=== PATIENT | female | born 1955 | race Caucasian/White ===

== ENCOUNTER 2021-02-17 05:42 | Emergency (ER) | payer OTHER, MEDICARE ==
[~2021-02-17] VITALS: Ht 165.1 cm; Wt 63.5 kg
[2021-02-17] MEDS ORDERED: ACETAMINOPHEN 500 MG TABLET PO ONE (06:00)
[2021-02-17 07:24] LABS: APPEARANCE,URINE Clear (CLEAR); BILIRUBIN,URINE Negative (NEGATIVE); COLOR,URINE Yellow (YELLOW); GLUCOSE, URINE (UA) Negative (NEGATIVE); KETONES,URINE Negative (NEGATIVE); LEUKOCYTE ESTERASE ,URINE Negative (NEGATIVE); NITRATE,URINE Negative (NEGATIVE); OCCULT BLOOD,URINE Negative (NEGATIVE); PROTEIN,URINE Negative (NEGATIVE)
[2021-02-17 08:43] VITALS: BP 151/62
[2021-02-17] MEDS ORDERED: PRED50TA2 PO (10:11)
[2021-02-17] MEDS ORDERED: IBUP-14 PO (10:11)
[2021-02-17] MEDS ORDERED: CYCL10TA7 PO (10:11)
[2021-02-17] MEDS ORDERED: DEXAMETHASONE SOD PHOSPHATE 10MG/ML 1ML VIAL ONE (10:29)
[2021-02-17] MEDS ORDERED: DEXAMETHASONE SOD PHOSPHATE 4 MG/ML 1ML VIAL IM SCH (12:00)
== END 2021-02-17 11:29 | disposition home or self-care (01) ==
LOC: EDH 05:42
DX: M47.816 Spondylosis without myelopathy or radiculopathy, lumbar region (principal); M48.061 Spinal stenosis, lumbar region without neurogenic claudication; Z79.899 Other long term (current) drug therapy
CPT/HCPCS: 72131; 81003; 96372; 99284; J1100

== ENCOUNTER 2021-11-21 18:36 | Inpatient (IN) | payer OTHER, MEDICARE ==
[~2021-11-21] VITALS: Ht 165.1 cm; Wt 63.8 kg
[~2021-11-21 18:36] MED LIST: CYCL-309 PO; IBUP-14 PO; PRED50TA2 PO
[2021-11-21 18:57] LABS: BASOPHILS % (AUTO) 0.2 % (0.0-5.0); LYMPHOCYTES % (AUTO) 12.2 % (21.0-51.0); MEAN CORPUSCULAR HEMOGLOBIN 24.3 pg (27.0-33.0); MEAN CORPUSCULAR HGB CONC 31.5 g/dL (32.0-36.0); MEAN CORPUSCULAR VOLUME 76.9 fL (79-99); MONOCYTES % (AUTO) 9.4 % (3.0-13.0); NEUTROPHILS % (AUTO) 77.9 % (40.0-77.0); PLATELET COUNT (AUTO) 339 K/uL (130-400); RED BLOOD CELL COUNT(AUTO) 5.07 MIL/uL (4.00-5.50); RED CELL DISTRIBUTION WIDTH 19.6 % (11.0-15.5); WHITE BLOOD COUNT (AUTO) 11.1 K/uL (4.8-10.8)
[2021-11-21] MEDS ORDERED: ACETAMINOPHEN 500 MG TABLET PO ONE (19:00)
[2021-11-21] MEDS ORDERED: IPRATROPIUM/ALBUTEROL SULFATE 3 ML SOLUTION IH ONE (19:00)
[2021-11-21] MEDS ORDERED: 0.9%NACL 1000ML 1,000 ML IV SCH (19:00)
[2021-11-21] MEDS ORDERED: IBUPROFEN 800 MG TAB PO ONE (19:00)
[2021-11-21] MEDS ORDERED: CEFTRIAXONE 1G VIAL IVP ONE (19:30)
[2021-11-21] MEDS ORDERED: GUAIFENESIN-CODEINE 5 ML SYRUP PO ONE (19:30)
[2021-11-21] MEDS ORDERED: AZITHROMYCIN 250 MG TABLET PO ONE (19:30)
[2021-11-21] MEDS ORDERED: SOLU-MEDROL 125MG VIAL IVP ONE ×2 (19:30→21:30)
[2021-11-21 19:42] LABS: CREATININE 0.6 mg/dL (0.5-1.5); POTASSIUM 3.6 mmol/L (3.5-5.1)
[2021-11-21 19:50] LABS: ALBUMIN 3.3 g/dL (3.5-5.0); CRP QUANTITATIVE 57.1 mg/L (0.00-9.0); TOTAL PROTEIN, SERUM 7.4 g/dL (6.0-8.3)
[2021-11-21 20:03] LABS: APPEARANCE,URINE SL CLOUDY (CLEAR); BILIRUBIN,URINE NEGATIVE (NEGATIVE); COLOR,URINE YELLOW (YELLOW); GLUCOSE, URINE (UA) NEGATIVE (NEGATIVE); KETONES,URINE 15 mg/dL (NEGATIVE); LEUKOCYTE ESTERASE ,URINE TRACE (NEGATIVE); NITRATE,URINE NEGATIVE (NEGATIVE); OCCULT BLOOD,URINE NEGATIVE (NEGATIVE); PH,URINE 7.5 (5.0-8.0); PROTEIN,URINE TRACE mg/dL (NEGATIVE)
[2021-11-21 20:09] LABS: BACTERIA,URINE Few /HPF (None Seen); MUCUS,URINE Few LPF (None Seen); SQUAMOUS EPITHELIAL CELL,UR Many /HPF (0-2)
[2021-11-21 20:11] LABS: AMPHET/METH SCREEN,URINE NEGATIVE (NEGATIVE); BARBITURATE SCREEN, URINE NEGATIVE (NEGATIVE); BENZODIAZEPINES SCREEN,URINE NEGATIVE (NEGATIVE); CANNABINOID SCREEN,URINE NEGATIVE (NEGATIVE); COCAINE SCREEN,URINE NEGATIVE (NEGATIVE); OPIATE SCREEN,URINE NEGATIVE (NEGATIVE); PHENCYCLIDINE SCREEN,URINE NEGATIVE (NEGATIVE)
[2021-11-21 20:51] LABS: ABG BASE EXCESS 0.2 mmol/L (-2.0-3.0); ABG OXYGEN SATURATION 83.8 % (95.0-99.0); ABG PCO2 37 mmHg (32-45)
[2021-11-21] MEDS ORDERED: BUDESONIDE 0.5 MG/2 ML INH IH SCH (21:00)
[2021-11-21] MEDS ORDERED: ONDANSETRON 4MG INJ IV PRN (21:30)
[2021-11-21] MEDS ORDERED: ALPRAZOLAM 0.25 MG TABLET PO PRN (21:30)
[2021-11-21] MEDS: SOLU-MEDROL 40MG VIAL IVP SCH (21:30)
[2021-11-21] MEDS ORDERED: ACETAMINOPHEN 325 MG TAB PO PRN (21:30)
[2021-11-21] MEDS: IPRATROPIUM/ALBUTEROL SULFATE 3 ML SOLUTION IH SCH (23:20)
[2021-11-22] MEDS: DOXYCYCLINE 100MG+NS 250ML IV SCH ×2 (01:00→12:20)
[2021-11-22] MEDS ORDERED: FUROSEMIDE 40MG VIAL IV ONE (01:00)
[2021-11-22] MEDS: SOLU-MEDROL 40MG VIAL IVP SCH ×3 (05:26→22:10)
[2021-11-22 05:46] LABS: HEMATOCRIT 37.4 % (36-48); LYMPHOCYTES % (AUTO) 8.5 % (21.0-51.0); MEAN CORPUSCULAR HEMOGLOBIN 24.4 pg (27.0-33.0); MEAN CORPUSCULAR HGB CONC 31.8 g/dL (32.0-36.0); MEAN CORPUSCULAR VOLUME 76.6 fL (79-99); MONOCYTES % (AUTO) 3.9 % (3.0-13.0); PLATELET COUNT (AUTO) 322 K/uL (130-400); RED BLOOD CELL COUNT(AUTO) 4.88 MIL/uL (4.00-5.50); RED CELL DISTRIBUTION WIDTH 19.1 % (11.0-15.5); WHITE BLOOD COUNT (AUTO) 10.3 K/uL (4.8-10.8)
[2021-11-22 05:57] LABS: CREATININE 0.5 mg/dL (0.5-1.5); MAGNESIUM 1.6 mg/dL (1.80-2.40); PHOSPHORUS 3.9 mg/dL (2.5-4.9); POTASSIUM 3.6 mmol/L (3.5-5.1)
[2021-11-22] MEDS: IPRATROPIUM/ALBUTEROL SULFATE 3 ML SOLUTION IH SCH ×4 (06:16→23:21)
[2021-11-22] MEDS ORDERED: HYDRALAZINE 20MG/ML VIAL IV PRN (08:00)
[2021-11-22] MEDS ORDERED: ACETAMINOPHEN 650 MG SUPPOSITORY RC PRN (08:00)
[2021-11-22] MEDS ORDERED: ONDANSETRON 4MG INJ IVP PRN (08:00)
[2021-11-22] MEDS ORDERED: LABETALOL 20MG SYG IV PRN (08:00)
[2021-11-22] MEDS ORDERED: CLONIDINE HCL 0.1 MG TABLET PO PRN (08:00)
[2021-11-22] MEDS ORDERED: LACTULOSE 20 GM/30 ML UDCUP PO PRN (08:00)
[2021-11-22] MEDS ORDERED: TEMAZEPAM 15 MG CAPSULE PO PRN (08:00)
[2021-11-22] MEDS ORDERED: DOCUSATE SODIUM 100 MG CAP PO PRN (08:00)
[2021-11-22] MEDS: NICOTINE 21 MG/ 24 HR PATCH TD SCH (09:00)
[2021-11-22] MEDS: CEFTRIAXONE 1G VIAL IVP SCH (09:01)
[2021-11-22] MEDS: ENOXAPARIN SODIUM 40 MG/0.4 ML SYRINGE SQ SCH (09:01)
[2021-11-22] MEDS: FAMOTIDINE 20MG VIAL IV SCH (09:01)
[2021-11-22] MEDS: BUDESONIDE 0.5 MG/2 ML INH IH SCH ×2 (09:32→18:07)
[2021-11-23] MEDS ORDERED: LORAZEPAM 0.5 MG TABLET ONE (02:01)
[2021-11-23] MEDS: DOXYCYCLINE 100MG+NS 250ML IV SCH ×2 (02:18→12:20)
[2021-11-23] MEDS: GUAIFENESIN-DM 200/20 MG 10 ML PO PRN (02:19)
[2021-11-23 03:30] VITALS: BP 149/59
[2021-11-23] MEDS: SOLU-MEDROL 40MG VIAL IVP SCH ×3 (05:53→20:50)
[2021-11-23] MEDS: ACETAMINOPHEN 325 MG TAB PO PRN ×2 (05:53→20:51)
[2021-11-23 06:34] LABS: HEMATOCRIT 35.5 % (36-48); MEAN CORPUSCULAR HEMOGLOBIN 24.5 pg (27.0-33.0); MEAN CORPUSCULAR HGB CONC 32.4 g/dL (32.0-36.0); MEAN CORPUSCULAR VOLUME 75.7 fL (79-99); PLATELET COUNT (AUTO) 344 K/uL (130-400); RED BLOOD CELL COUNT(AUTO) 4.69 MIL/uL (4.00-5.50); RED CELL DISTRIBUTION WIDTH 18.8 % (11.0-15.5); WHITE BLOOD COUNT (AUTO) 15.6 K/uL (4.8-10.8)
[2021-11-23] MEDS: BUDESONIDE 0.5 MG/2 ML INH IH SCH ×2 (06:34→18:46)
[2021-11-23] MEDS: IPRATROPIUM/ALBUTEROL SULFATE 3 ML SOLUTION IH SCH ×4 (06:34→23:41)
[2021-11-23 06:48] LABS: ALBUMIN 2.6 g/dL (3.5-5.0); CREATININE 0.6 mg/dL (0.5-1.5); POTASSIUM 3.5 mmol/L (3.5-5.1); TOTAL PROTEIN, SERUM 6.5 g/dL (6.0-8.3)
[2021-11-23 07:40] LABS: LYMPHOCYTES % (MANUAL) 5 % (22-44); MAN.DIFF COMMENT-IMPRESSION MANUAL DIFFERENTIAL; MONOCYTES % (MANUAL) 3 % (2-9); PLATELET MORPHOLOGY COMMENT ADEQUATE; SEGMENTED NEUTROPHILS % 92 % (40-70)
[2021-11-23 08:00] VITALS: BP 134/70
[2021-11-23] MEDS ORDERED: MAGNESIUM 2GM PREMIX 50ML 50 ML IV PRN (08:00)
[2021-11-23] MEDS ORDERED: KCL 20 MEQ ERTAB PO PRN (08:00)
[2021-11-23] MEDS ORDERED: LIDOCAINE HCL-MPF 1% 2ML VIAL IV PRN (08:00)
[2021-11-23] MEDS ORDERED: POTASSIUM CHLORIDE 10% ELIXIR 20 MEQ/15 ML UDCUP PO PRN (08:00)
[2021-11-23] MEDS ORDERED: POTASSIUM CHLORIDE 20MEQ/100ML 100 ML IV PRN (08:00)
[2021-11-23] MEDS: NICOTINE 21 MG/ 24 HR PATCH TD SCH (08:49)
[2021-11-23] MEDS: ENOXAPARIN SODIUM 40 MG/0.4 ML SYRINGE SQ SCH (08:50)
[2021-11-23] MEDS: FAMOTIDINE 20MG VIAL IV SCH (08:50)
[2021-11-23] MEDS: CEFTRIAXONE 1G VIAL IVP SCH (08:50)
[2021-11-23 12:00] VITALS: BP 108/41
[2021-11-23] MEDS ORDERED: 0.9% NACL 250ML 250 ML ONE ×2 (12:06→23:59)
[2021-11-23 16:00] VITALS: BP 134/62
[2021-11-23 20:00] VITALS: BP 136/67
[2021-11-24] VITALS: BP 163/59
[2021-11-24] MEDS: DOXYCYCLINE 100MG+NS 250ML IV SCH ×2 (00:01→13:27)
[2021-11-24] MEDS: GUAIFENESIN-DM 200/20 MG 10 ML PO PRN (03:28)
[2021-11-24 04:01] VITALS: BP 162/76
[2021-11-24] MEDS: ACETAMINOPHEN 325 MG TAB PO PRN (05:29)
[2021-11-24] MEDS: SOLU-MEDROL 40MG VIAL IVP SCH ×2 (05:38→13:27)
[2021-11-24] MEDS: IPRATROPIUM/ALBUTEROL SULFATE 3 ML SOLUTION IH SCH ×3 (06:42→17:07)
[2021-11-24] MEDS: BUDESONIDE 0.5 MG/2 ML INH IH SCH ×2 (06:42→17:07)
[2021-11-24 08:46] LABS: HEMATOCRIT 34.1 % (36-48); MEAN CORPUSCULAR HEMOGLOBIN 24.4 pg (27.0-33.0); MEAN CORPUSCULAR HGB CONC 31.7 g/dL (32.0-36.0); PLATELET COUNT (AUTO) 363 K/uL (130-400); RED BLOOD CELL COUNT(AUTO) 4.43 MIL/uL (4.00-5.50); RED CELL DISTRIBUTION WIDTH 19.4 % (11.0-15.5); WHITE BLOOD COUNT (AUTO) 12.7 K/uL (4.8-10.8)
[2021-11-24] MEDS: NICOTINE 21 MG/ 24 HR PATCH TD SCH (09:00)
[2021-11-24] MEDS ORDERED: LISINOPRIL 40 MG TABLET PO SCH (09:00)
[2021-11-24] MEDS: CEFTRIAXONE 1G VIAL IVP SCH (09:07)
[2021-11-24 09:08] VITALS: BP 156/60
[2021-11-24] MEDS: ENOXAPARIN SODIUM 40 MG/0.4 ML SYRINGE SQ SCH (09:08)
[2021-11-24] MEDS: FAMOTIDINE 20MG VIAL IV SCH (09:08)
[2021-11-24 09:11] LABS: CREATININE 0.6 mg/dL (0.5-1.5); MAGNESIUM 1.8 mg/dL (1.80-2.40); POTASSIUM 3.5 mmol/L (3.5-5.1)
[2021-11-24 10:05] LABS: LYMPHOCYTES % (MANUAL) 12 % (22-44); MAN.DIFF COMMENT-IMPRESSION MANUAL DIFFERENTIAL; MONOCYTES % (MANUAL) 3 % (2-9); PLATELET MORPHOLOGY COMMENT ADEQUATE; SEGMENTED NEUTROPHILS % 85 % (40-70)
[2021-11-24 12:26] VITALS: BP 144/55
[2021-11-24] MEDS ORDERED: 0.9% NACL 250ML 250 ML ONE (13:26)
[2021-11-24] MEDS ORDERED: PRED20TA3 PO (13:46)
[2021-11-24] MEDS ORDERED: ALBU6.7H9 IH (13:46)
[2021-11-24] MEDS ORDERED: LISI40TA9 PO (13:46)
[2021-11-24] MEDS ORDERED: LEVO500T90 PO (13:46)
[2021-11-24 17:29] VITALS: BP 185/57
== END 2021-11-24 18:45 | disposition home or self-care (01) | DRG 193 ==
LOC: EDH 18:36 → EDHIP 21:04 → 4DH 11-23 03:22
PROVIDERS: ADMIT Internal Medicine; ATTEND Internal Medicine
DX: J18.9 Pneumonia, unspecified organism (principal); J96.01 Acute respiratory failure with hypoxia; J44.1 Chronic obstructive pulmonary disease with (acute) exacerbation; Z20.822 Contact with and (suspected) exposure to COVID-19; F17.210 Nicotine dependence, cigarettes, uncomplicated; E86.0 Dehydration; Z87.09 Personal history of other diseases of the respiratory system
CPT/HCPCS: 36415; 36600; 71045; 71250; 80048; 80053; 80305; 81001; 82803; 83605; 83735; 83880; 84100; 84484; 85025; 86140; 87040; 87071; 87205; 87635; 87804; 94640; 94664; C9803; G0378; J0696; J1650; J1940; J2920; J2930; J3475; J3490; J7030; J7050

== ENCOUNTER 2024-01-18 17:03 | Emergency (ER) | payer OTHER, MEDICARE ==
[~2024-01-18] VITALS: Ht 167.6 cm; Wt 63.5 kg
[~2024-01-18 17:03] MED LIST changes: +ALBU6.7H14 IH; +GUAI5SYR PO; +LEVO-70 PO; +LISI40TA9 PO; +PRED20TA3 PO; -PRED50TA2 PO
[2024-01-18 17:39] LABS: BASOPHILS # (AUTO) 0.05 K/uL (0.00-0.20); BASOPHILS % (AUTO) 0.7 % (0.0-5.0); EOSINOPHILS # (AUTO) 0.11 K/uL (0.00-0.70); EOSINOPHILS % (AUTO) 1.5 % (0.0-8.0); HEMATOCRIT 37.1 % (36-48); IMMATURE GRANULOCYTE ABSOLUTE 0.02 K/uL (0-1); LYMPHOCYTES # (AUTO) 2.4 K/uL (1.0-4.8); LYMPHOCYTES % (AUTO) 31.3 % (21.0-51.0); MEAN CORPUSCULAR HEMOGLOBIN 22.8 pg (27.0-33.0); MEAN CORPUSCULAR HGB CONC 29.6 g/dL (32.0-36.0); MONOCYTES # (AUTO) 0.8 K/uL (0.1-1.0); MONOCYTES % (AUTO) 9.9 % (3.0-13.0); NEUTROPHILS # (AUTO) 4.3 K/uL (1.8-7.7); NEUTROPHILS % (AUTO) 56.3 % (40.0-77.0); PLATELET COUNT (AUTO) 481 K/uL (130-400); RED BLOOD CELL COUNT(AUTO) 4.82 MIL/uL (4.00-5.50); WHITE BLOOD COUNT (AUTO) 7.6 K/uL (4.8-10.8)
[2024-01-18 17:47] LABS: CREATININE 0.5 mg/dL (0.5-1.0); POTASSIUM 3.4 mmol/L (3.5-5.1)
[2024-01-18 17:49] LABS: INR 0.95 (0.85-1.15); PROTHROMBIN TIME 10.3 SEC (9.6-11.6)
[2024-01-18 17:50] LABS: PARTIAL THROMBOPLASTIN TIME 22.8 SEC (26.3-35.5)
[2024-01-18 17:56] LABS: ALBUMIN 3.6 g/dL (3.5-5.0); BILIRUBIN,TOTAL 0.3 mg/dL (0.2-1.0); MAGNESIUM 1.7 mg/dL (1.80-2.40); TOTAL PROTEIN, SERUM 7.2 g/dL (6.0-8.3)
[2024-01-18 18:00] LABS: B-TYPE NATRIURETIC PEPTIDE 109 pg/mL (0-100)
[2024-01-18] MEDS ORDERED: Solu-medROL 125MG VIAL IVP ONE (19:00)
[2024-01-18 19:05] VITALS: PULSE 91; RESP 19
[2024-01-18] MEDS: IpraTROPium/alBUTERol SULFATE 3 ML SOLUTION IH ONE (19:05)
[2024-01-18] MEDS: MAGNESIUM OXIDE 400 MG TABLET PO ONE (19:51)
[2024-01-18] MEDS: PoTASSium BIcarbonate/CIT AC 25 MEQ TABLET.EFF PO ONE (19:51)
[2024-01-18] MEDS: Solu-medROL 125MG VIAL IM ONE (19:53)
[2024-01-18 20:04] VITALS: BP 164/47; PULSE 97; RESP 19; O2SAT 87
== END 2024-01-18 20:45 | disposition left against medical advice (07) ==
LOC: EDH 17:03
DX: R06.03 Acute respiratory distress (principal); Z20.822 Contact with and (suspected) exposure to COVID-19; J44.1 Chronic obstructive pulmonary disease with (acute) exacerbation; I11.0 Hypertensive heart disease with heart failure; I50.9 Heart failure, unspecified; F17.200 Nicotine dependence, unspecified, uncomplicated; Z79.899 Other long term (current) drug therapy; Z79.2 Long term (current) use of antibiotics; Z98.51 Tubal ligation status
CPT/HCPCS: 99284; 71045; 83735; 84484; 80053; 83880; 85025; 85610; 85730; 36415; 96372; 94640; J2919

== ENCOUNTER 2024-03-25 21:43 | Observation (INO) | payer OTHER, MEDICARE ==
[~2024-03-25] VITALS: Ht 165.1 cm; Wt 61.3 kg
[2024-03-25 22:43] LABS: BASOPHILS # (AUTO) 0.04 K/uL (0.00-0.20); BASOPHILS % (AUTO) 0.6 % (0.0-5.0); CREATININE 0.5 mg/dL (0.5-1.0); EOSINOPHILS # (AUTO) 0.05 K/uL (0.00-0.70); EOSINOPHILS % (AUTO) 0.7 % (0.0-8.0); IMMATURE GRANULOCYTE ABSOLUTE 0.03 K/uL (0-1); LYMPHOCYTES % (AUTO) 29.4 % (21.0-51.0); MEAN CORPUSCULAR HEMOGLOBIN 21.6 pg (27.0-33.0); MEAN CORPUSCULAR HGB CONC 29.1 g/dL (32.0-36.0); MEAN CORPUSCULAR VOLUME 74.2 fL (79-99); MONOCYTES # (AUTO) 0.8 K/uL (0.1-1.0); MONOCYTES % (AUTO) 11.8 % (3.0-13.0); NEUTROPHILS % (AUTO) 57.1 % (40.0-77.0); PLATELET COUNT (AUTO) 340 K/uL (130-400); POTASSIUM 3.9 mmol/L (3.5-5.1); RED BLOOD CELL COUNT(AUTO) 4.72 MIL/uL (4.00-5.50); RED CELL DISTRIBUTION WIDTH 20.4 % (11.0-15.5); WHITE BLOOD COUNT (AUTO) 6.9 K/uL (4.8-10.8)
[2024-03-25 22:45] LABS: APPEARANCE,URINE CLEAR (CLEAR); BILIRUBIN,URINE NEGATIVE (NEGATIVE); COLOR,URINE LIGHT-YELLOW (YELLOW); GLUCOSE, URINE (UA) NEGATIVE (NEGATIVE); KETONES,URINE NEGATIVE (NEGATIVE); LEUKOCYTE ESTERASE ,URINE NEGATIVE Leu/uL (NEGATIVE); NITRATE,URINE NEGATIVE (NEGATIVE); OCCULT BLOOD,URINE NEGATIVE (NEGATIVE); PROTEIN,URINE 20 mg/dL (NEGATIVE)
[2024-03-25 22:47] LABS: ALBUMIN 3.2 g/dL (3.5-5.0); BILIRUBIN,TOTAL 0.3 mg/dL (0.2-1.0); TOTAL PROTEIN, SERUM 6.8 g/dL (6.0-8.3)
[2024-03-25 22:48] LABS: ADD UA MICROSCOPIC YES
[2024-03-25 22:55] LABS: MUCUS,URINE RARE LPF (None Seen); SQUAMOUS EPITHELIAL CELL,UR RARE /HPF (0-2)
[2024-03-25] MEDS: LOPERAMIDE 1 MG/7.5 ML UDCUP PO SCH (23:00)
[2024-03-25] MEDS: LACTATED RINGERS 1000ML 1,000 ML IV ONE (23:00)
--- NOTE | 2024-03-25 23:01 | ERN ---
General Chief Complaint: Abdominal Pain Stated Complaint: DIZZINESS, ABDOMINAL PAIN Time Seen by MD: 21:47 History of Present Illness Initial Comments Ms. Valles is a very pleasant 69-year-old female significant past medical history of essential hypertension, COPD, chronic muscle spasms and history of psychosis who presents today with multiple chief complaints. Patient was recently discharge from [place] for having thoughts about mites in her home. Essentially homeless given these thoughts. Patient was [facility] [employer] and was brought here for ongoing issues of diarrhea, ear pain, thoughts about having mites in her hair. Allergies: Coded Allergies: No Known Drug Allergies (Unverified Allergy, Unknown, 02/17/21) Home Meds Active Scripts Guaifenesin/Dextromethorphan (Guaifenesin Dm Syrup) 100 Mg-10 Mg/5 Ml Syrup, 5 ML PO q6 hours PRN, #237 ML 0 Refills Prov:NICKIE ROSSI NP 11/23/23 Levofloxacin (Levofloxacin) 500 Mg Tablet, 500 MG PO DAILY for 7 Days, #7 TAB Prov:ADELAIDA MALDONADO MD 11/24/21 Prednisone (Prednisone) 20 Mg Tablet, 40 MG PO DAILYBKFST for 7 Days, #14 TAB Prov:ADELAIDA MALDONADO MD 11/24/21 Albuterol Sulfate (Proventil Hfa) 6.7 Gm Hfa.aer.ad, 6.7 GM IH Q4HPRN PRN for SHORTNESS OF BREATH/WHEEZING for 30 Days, #1 INHALER 3 Refills Prov:ADELAIDA MALDONADO MD 11/24/21 Lisinopril (Lisinopril) 40 Mg Tablet, 40 MG PO DAILY, #30 TAB 0 Refills Prov:ADELAIDA MALDONADO MD 11/24/21 Cyclobenzaprine HCl (Cyclobenzaprine HCl) 10 Mg Tablet, 10 MG PO BID PRN for PAIN LEVEL 6 TO 10 for 7 Days, #15 TAB dont take while driving or operating machinery Prov:ABDIAZIZ MARSHALL MD 02/17/21 Ibuprofen (Advil) 200 Mg Tablet, 600 MG PO Q6HPRN PRN for PAIN LEVEL 1 TO 5 for 7 Days, #30 TAB 0 Refills take with food Prov:ABDIAZIZ MARSHALL MD 02/17/21 Past Medical History Past Medical History: COPD, Diabetes-Type II, Hypertension Medical History Other: Tobacco abuse, PVD Past Surgical History: BTL Surgical History Other: TUBAL LIGATION Family History Family History: Negative Social History Social History: Smokers, ETOH Female( History) History: Not Applicable ROS Dictation Constitutional: Negative for fever,chills, and weight loss Eyes: Negative for injury, pain,redness, and discharge ENT: Negative for injury,pain or swelling Cardiovascular: Negative for chest pain, palpitations, and edema Respiratory: Negative for shortness of breath, cough, and wheezing, Abdomen/GI: Diarrhea Back: Negative for injury and pain : Negative for injury, bleeding and discharge MS/Extremity: Negative for injury and deformity Skin: Negative for rash, and discoloration Neuro: Negative for headache, weakness, numbness, tingling, and seizure Psych: Hallucinations Physical Exam Physical Exam Dictation General: awake, alert, NAD Head/Face: Normocephalic, atraumatic Eyes: PERRL, EOMI, vision at baseline ENT: oral cavity clear Neck: Trachea midline Cardiovascular: RRR, normal S1/S2, No MRGs, no JVD Respiratory: Diminished breath sounds bilaterally Abdomen: Soft, non-tender, non-distended, Skin: Warm, dry, normal turgor, no rash MS/Extremity: Pulses equal, no cyanosis Neuro: COAx4, GCS 15, strength 5/5, CN 2-12 intact Psych: Patient reports having mites in her hair. Patient was paranoid Results Laboratory and Microbiology Lab and Micro Result Laboratory Tests Test 03/25/24 21:58 03/25/24 22:26 Urine Color LIGHT-YELLOW (YELLOW) Urine Appearance CLEAR (CLEAR) Urine pH 6.0 (5.0-8.0) Urine Specific [place] 1.020 (1.001-1.031) Urine Protein 20 mg/dL (NEGATIVE) H Urine Glucose (UA) NEGATIVE mg/dL (NEGATIVE) Urine Ketones NEGATIVE mg/dL (NEGATIVE) Urine Occult Blood NEGATIVE (NEGATIVE) Urine Nitrate NEGATIVE (NEGATIVE) Urine Bilirubin NEGATIVE mg/dL (NEGATIVE) Urine Urobilinogen 2.0 mg/dL (0.2-1.0) H Urine Leukocyte Esterase NEGATIVE Amado/uL Urine RBC 2-5 /HPF (0-1) H Urine WBC 2-5 /HPF (0-1) H Urine Squamous Epithelial Cells RARE /HPF (0-2) Urine Bacteria None /HPF (None Seen) White Blood Count 6.9 K/uL (4.8-10.8) Red Blood Count 4.72 MIL/uL (4.00-5.50) Hemoglobin 10.2 g/dL (12.0-16.0) L Hematocrit 35.0 % (36-48) L Mean Corpuscular Volume 74.2 fL (79-99) L Mean Corpuscular Hemoglobin 21.6 pg (27.0-33.0) L Mean Corpuscular Hemoglobin Concent 29.1 g/dL (32.0-36.0) L Red Cell Distribution Width 20.4 % (11.0-15.5) H Platelet Count 340 K/uL (130-400) Mean Platelet Volume 9.3 fL (7.5-10.5) Immature Granulocyte % (Auto) 0.4 % (0-1) Neutrophils (%) (Auto) 57.1 % (40.0-77.0) Lymphocytes (%) (Auto) 29.4 % (21.0-51.0) Monocytes (%) (Auto) 11.8 % (3.0-13.0) Eosinophils (%) (Auto) 0.7 % (0.0-8.0) Basophils (%) (Auto) 0.6 % (0.0-5.0) Neutrophils # (Auto) 4.0 K/uL (1.8-7.7) Lymphocytes # (Auto) 2.0 K/uL (1.0-4.8) Monocytes # (Auto) 0.8 K/uL (0.1-1.0) Eosinophils # (Auto) 0.05 K/uL (0.00-0.70) Basophils # (Auto) 0.04 K/uL (0.00-0.20) Absolute Immature Granulocyte (auto 0.03 K/uL (0-1) Nucleated Red Blood Cells 0.0 % (0.0-0.19) Red Blood Cell Morphology See comments Sodium Level 137 mmol/L (136-145) Potassium Level 3.9 mmol/L (3.5-5.1) Chloride Level 100 mmol/L (101-111) L Carbon Dioxide Level 29 mmol/L (21-32) Blood Urea Nitrogen 17 mg/dL (7-18) Creatinine 0.5 mg/dL (0.5-1.0) Glomerular Filtration Rate Calc 100 mL/min (>90) Random Glucose 112 mg/dL (70-105) H Total Calcium 8.8 mg/dL (8.5-10.1) Total Bilirubin 0.3 mg/dL (0.2-1.0) Aspartate Amino Transf (AST/SGOT) 19 U/L (10-37) Alanine Aminotransferase (ALT/SGPT) 21 U/L (12-78) Alkaline Phosphatase 94 U/L (50-136) Total Protein 6.8 g/dL (6.0-8.3) Albumin 3.2 g/dL (3.5-5.0) L MDM Patient will be admitted for lice treatment and social work evaluation MDM: Differential diagnosis: Lice Rationale: Tests considered and ordered secondary to shared decision making include: labs, ECG and radiology Previous outside records reviewed: Old ER visits. Risk of complication and/or morbidity or mortality of patient management: None Medications-Per medication reconciliation Need for hospitalization: Patient does meet criteria for hospitalization. Need for emergency major/minor surgery: No There are no social concerns with this patient. Prescription drug management Prescriptions will include symptomatic care Patient's prior external medical records from other ER visits were reviewed by me as indicated. Prior testing and results from previous visits were reviewed. Prior tests were taken into account with medical decision making and resource utilization, independent historian/historians were used to obtain complete medical history. I independently interpreted the test that were performed, results were reviewed by me and considered findings on radiology if ordered. Medical management and examination interpretation discussions were had by me with other qualified healthcare professionals as indicated for the patient's care. Says the ED Course Orders Procedure Category Date Status Time Cbc With Differential LAB 03/25/24 Complete 22:04 Comprehensive LAB 03/25/24 Complete Metabolic Panel 22:04 Urinalysis Profile LAB 03/25/24 Complete 22:04 Ct Abdomen/Pelvis CT 03/25/24 Resulted W/Contrast 22:04 Lactated Ringers PHA 03/25/24 Complete 1000ml (Lactated 22:30 Loperamide (Immodium PHA 03/25/24 In Process Liquid) 22:30 Hydralazine 20mg Inj PHA 03/25/24 Complete (Apresoline 20mg In 23:00 Iohexol (Omnipaque) PHA 03/25/24 Complete 23:39 Permethrin Cream 5% PHA 03/26/24 In Process (Elimite Cream 5%) 00:30 Permethrin (Lice PHA 03/26/24 Complete Treatment) 01:00 Permethrin (Lice PHA 03/26/24 In Process Treatment) 01:00 Ivermectin PHA 03/26/24 In Process (Stromectol) 01:30 Current Medications Medications (Trade) Dose Ordered Sig/Jo Route PRN Reason Start Time Stop Time Status Last Admin Dose Admin Hydralazine HCl (APRESOLine 20MG INJ) 20 mg ONCE ONCE IV 03/25/24 23:00 03/25/24 23:01 DC 03/25/24 23:02 Iohexol (Omnipaque) 75 ml STK-MED ONCE IV 03/25/24 23:39 03/25/24 23:44 DC Ivermectin (Stromectol) 3 mg ONCE PO 03/26/24 01:30 04/25/24 01:29 03/26/24 01:27 Lactated Ringer's 1,000 ml @ 0 mls/hr ONCE ONCE IV 03/25/24 22:30 03/25/24 22:31 DC 03/25/24 23:00 Loperamide HCl (Immodium Liquid) 4 mg ONCE PO 03/25/24 22:30 04/24/24 22:29 03/25/24 23:00 Permethrin (Elimite Cream 5%) 60 gm ONCE ONCE TP 03/26/24 00:30 03/26/24 00:31 Permethrin (Lice Treatment) BID TP 03/26/24 01:00 03/26/24 00:39 DC Permethrin (Lice Treatment) ONCE ONCE TP 03/26/24 01:00 03/26/24 01:01 03/26/24 01:02 Vital Signs Date Time Temp Pulse Resp B/P (MAP) Pulse Ox O2 Delivery O2 Flow Rate FiO2 03/26/24 00:37 88 20 164/62 94 Room Air* 0 21 03/25/24 22:33 97.9 91 20 178/63 94 Room Air* 0 21 03/25/24 21:44 98.1 94 14 185/76 94 Room Air 0 DX & DISP Disposition: Inpatient Departure Impression: Primary Impression: Lice infestation Condition: Stable Referrals: VÍCTOR MONTERO MD (PCP) MICHAEL JOHNSON MD Mar 25, 2024 23:01
[2024-03-25] MEDS: hydrALAZine 20MG/ML VIAL IV ONE (23:02)
[2024-03-25] MEDS ORDERED: IOHEXOL-350 75 ML VIAL IV ONE (23:39)
--- NOTE | 2024-03-26 00:43 | HMCIMG ---
CT ABDOMEN/PELVIS W/CONTRAST HISTORY: Abdominal pain COMPARISON: None TECHNIQUE: Multiple sequential axial images of the abdomen and pelvis were obtained from the dome of the diaphragm through symphysis pubis. Patient was given 75 cc of Omnipaque through intravenous route. Oral contrast was not given. FINDINGS: No pleural effusion is seen bilaterally. There is no evidence of parenchymal disease or pulmonary nodule of the visualized lower lungs. Degenerative changes of the thoracolumbar spine are present. The heart is not enlarged. There is scoliosis. The liver, spleen, adrenal glands and pancreas are unremarkable. There is no evidence of hydronephrosis bilaterally. There is left renal cyst measuring 2.5 cm. No evidence of renal stone is seen. Fecal material is seen in the colon. There are normal size retroperitoneal and mesenteric lymph nodes. No ascites is seen. Atherosclerotic changes are present. Appendix is not well seen limiting evaluation. Uterus is enlarged may be related to fibroid uterus. There is diverticulosis. Pelvic sidewalls are symmetric bilaterally. Bladder is well distended without wall thickening. IMPRESSION: 1. Large amount of fecal material is seen in the colon. Left renal cyst measuring 2.5 cm. No ascites is seen. CT was performed with one or more following dose reduction techniques: automated exposure control, adjustment of the mA and kv according to patient's size, or use of a iterative reconstruction technique.
[2024-03-26] MEDS ORDERED: PERMETHRIN LOTION 1% 59ML BOTTLE TP SCH (01:00)
[2024-03-26] MEDS: PERMETHRIN CREAM 5% 60GM TUBE TP ONE (01:02)
[2024-03-26] MEDS: PERMETHRIN LOTION 1% 59ML BOTTLE TP ONE (01:02)
[2024-03-26] MEDS: IVERMECTIN 3 MG TAB PO SCH (01:27)
--- NOTE | 2024-03-26 02:28 | HP ---
[facility] HISTORY AND PHYSICAL Date of Service: Mar 26, 2024 Time of Service: 02:28 VÍCTOR MONTERO MD (PCP) Attending/supervising physician Dr. Rizo and Flakito Ro HISTORY OF PRESENT ILLNESS: Ms. Valles is 69-year-old female significant past medical history of essential hypertension, COPD, chronic muscle spasms and history of psychosis who presented to the ED with multiple chief complaints. Patient was recently discharge from [facility]. The patient is homeless and was found at a [employer] convenience store and was brought here for ongoing issues of diarrhea, ear pain, and head lice. The patient had a CT abdomen which showed large amount of fecal material in the colon. Left renal cyst measuring 2.5 cm. No ascites. Remarkable lab results: Hemoglobin 10.2, hematocrit 35, glucose 112, albumin 3.2. ED administered LR1 L bolus, hydralazine, permethrin cream, and Ivermectin. The patient was admitted with a diagnosis of abdominal pain and head lice. Patient was seen at bedside. Patient appeared comfortable in no distress. Breathing was even and unlabored. Patient was removing her head lice and putting them in a urine cup. I informed her of labs, diagnostics, and plan of care. Plan and assessment are listed below. REVIEW OF SYSTEMS 12-point ROS reviewed with patient. All pertinent positives mentioned above. O therwise negative, non-pertinent, noncontributory. Past Medical History: COPD, Diabetes-Type II, Hypertension, Tobacco abuse, PVD Past Surgical History: Bilateral tubal ligation Social history: Smoker, EtOH Family History: Negative Coded Allergies: No Known Drug Allergies (Unverified Allergy, Unknown, 02/17/21) PHYSICAL EXAM GENERAL APPEARANCE: The patient is awake, alert, and oriented, in no acute cardiopulmonary distress. NEUROLOGICAL: Cranial nerves II-XII grossly intact. Motor is 5/5 in bilateral upper and lower extremities proximal to distal. No sensory deficits. HEENT: Head lice. Face is symmetric. Pupils are equal and reactive. Extraocular movements are intact. NECK: Supple. No JVD. No thyromegaly. No submental, submandibular, pre- /postauricular, occipital or supraclavicular lymphadenopathy. CHEST: Normal chest expansion. No Telemetry. LUNGS: Absence of any rales, rhonchi or any wheezing. CARDIOVASCULAR: Regular. S1 and S2 normal. No appreciable rubs, murmurs or gallops. ABDOMEN: Soft, nontender, and nondistended. There is no rebound, voluntary guarding, or rigidity. : Deferred. No Estrada. EXTREMITIES: Non-edematous and not cyanotic. No clubbing. Good capillary refill. SKIN: No skin breakdown. Vital Sign (Last 24 Hours) 03/25/24 03/26/24 22:33 00:37 Temp 97.9 Pulse 88 Resp 20 B/P (MAP) 164/62 Pulse Ox 94 O2 Delivery Room Air* O2 Flow Rate 0 FiO2 21 LABS: Laboratory: Test 03/25/24 22:26 03/25/24 21:58 Range/Units White Blood Count 6.9 4.8-10.8 K/uL Red Blood Count 4.72 4.00-5.50 MIL/uL Hemoglobin 10.2 L 12.0-16.0 g/dL Hematocrit 35.0 L 36-48 % Mean Corpuscular Volume 74.2 L 79-99 fL Mean Corpuscular Hemoglobin 21.6 L 27.0-33.0 pg Mean Corpuscular Hemoglobin Concent 29.1 L 32.0-36.0 g/dL Red Cell Distribution Width 20.4 H 11.0-15.5 % Platelet Count 340 130-400 K/uL Mean Platelet Volume 9.3 7.5-10.5 fL Immature Granulocyte % (Auto) 0.4 0-1 % Neutrophils (%) (Auto) 57.1 40.0-77.0 % Lymphocytes (%) (Auto) 29.4 21.0-51.0 % Monocytes (%) (Auto) 11.8 3.0-13.0 % Eosinophils (%) (Auto) 0.7 0.0-8.0 % Basophils (%) (Auto) 0.6 0.0-5.0 % Neutrophils # (Auto) 4.0 1.8-7.7 K/uL Lymphocytes # (Auto) 2.0 1.0-4.8 K/uL Monocytes # (Auto) 0.8 0.1-1.0 K/uL Eosinophils # (Auto) 0.05 0.00-0.70 K/uL Basophils # (Auto) 0.04 0.00-0.20 K/uL Absolute Immature Granulocyte (auto 0.03 0-1 K/uL Nucleated Red Blood Cells 0.0 0.0-0.19 % Red Blood Cell Morphology See comments Sodium Level 137 136-145 mmol/L Potassium Level 3.9 3.5-5.1 mmol/L Chloride Level 100 L 101-111 mmol/L Carbon Dioxide Level 29 21-32 mmol/L Blood Urea Nitrogen 17 7-18 mg/dL Creatinine 0.5 0.5-1.0 mg/dL Glomerular Filtration Rate Calc 100 >90 mL/min Random Glucose 112 H 70-105 mg/dL Total Calcium 8.8 8.5-10.1 mg/dL Total Bilirubin 0.3 0.2-1.0 mg/dL Aspartate Amino Transf (AST/SGOT) 19 10-37 U/L Alanine Aminotransferase (ALT/SGPT) 21 12-78 U/L Alkaline Phosphatase 94 50-136 U/L Total Protein 6.8 6.0-8.3 g/dL Albumin 3.2 L 3.5-5.0 g/dL Urine Color LIGHT-YELLOW YELLOW Urine Appearance CLEAR CLEAR Urine pH 6.0 5.0-8.0 Urine Specific [place] 1.020 1.001-1.031 Urine Protein 20 H NEGATIVE mg/dL Urine Glucose (UA) NEGATIVE NEGATIVE mg/dL Urine Ketones NEGATIVE NEGATIVE mg/dL Urine Occult Blood NEGATIVE NEGATIVE Urine Nitrate NEGATIVE NEGATIVE Urine Bilirubin NEGATIVE NEGATIVE mg/dL Urine Urobilinogen 2.0 H 0.2-1.0 mg/dL Urine Leukocyte Esterase NEGATIVE NEGATIVE Amado/uL Urine RBC 2-5 H 0-1 /HPF Urine WBC 2-5 H 0-1 /HPF Urine Squamous Epithelial Cells RARE 0-2 /HPF Urine Bacteria None None Seen /HPF Current Medications Medications (Trade) Dose Ordered Sig/Jo Route PRN Reason Start Time Stop Time Status Last Admin Dose Admin Ivermectin (Stromectol) 3 mg ONCE PO 03/26/24 01:30 04/25/24 01:29 03/26/24 01:27 3 MG Loperamide HCl (Immodium Liquid) 4 mg ONCE PO 03/25/24 22:30 04/24/24 22:29 03/25/24 23:00 4 MG Permethrin (Lice Treatment) BID TP 03/26/24 01:00 03/26/24 00:39 DC DIAGNOSTICS / RADIOLOGY: [ ] ASSESSMENT: Acute abdominal pain, POA Diarrhea, POA, large amount of stool in the colon per CT 03/26/2024 Chronic constipation Left renal cyst measuring 2.5 cm, per CT 03/26/2024 Lice infestation, POA Anemia Hyperglycemia Chronic problem list: COPD, diabetes mellitus type 2, hypertension, tobacco abuse, alcohol abuse, PVD, history of psychosis, history of chronic muscle spasms PLAN: Admit to medical floor. P.r.n. medications for: pain management, nausea, vomiting, fever, hypertension. Precautions to prevent the spread of lice. One more dose of Permethrin. Monitor renal and liver function. Monitor electrolytes and treat accordingly. Glucometer checks with Insulin regular sliding scale per protocol. Blood pressure checks every 4 hours and p.r.n.. Albuterol and Atrovent as needed for shortness of breath or wheezing. DVT and GI prophylaxis. A.m. labs: CBC, BNP, Mag, phos, TSH, A1c. Next ADVANCED CARE PLANNING 1. Which of the following were discussed? Hospice Care - No Therapeutic options - Yes Advance Directives - Yes Other discussions - 2. Discussed with who? Patient 3. Voluntary nature of this service was explained to the patient? Yes 4. Amount of time spent - __Over 35 min. ____ 5. Reviewed by Physician? (if this service was performed by NPP) Yes Patient seen and examined by me. Agree with note by DIVISION SERVICE MANAGER SEE ADDITIONAL ORDERS PER CHART DISCUSSED WITH NURSING STAFF JAIRON BROOKE Mar 26, 2024 02:28
[2024-03-26] MEDS ORDERED: ondanSETRON 4MG INJ IVP PRN (03:00)
[2024-03-26] MEDS ORDERED: hydrALAZine 20MG/ML VIAL IV PRN (03:00)
[2024-03-26] MEDS ORDERED: doCUSate SODIUM 100 MG CAP PO PRN (03:00)
[2024-03-26] MEDS ORDERED: acetaMINOPHEN 325 MG TAB PO PRN (03:00)
[2024-03-26] MEDS ORDERED: acetaMINOPHEN 650 MG SUPPOSITORY RC PRN (03:00)
[2024-03-26] MEDS ORDERED: TEMAZepam 15 MG CAPSULE PO PRN (03:00)
--- NOTE | 2024-03-26 04:00 | NUR ---
Report Received report from Mayank STRANGE at this time.
[2024-03-26 04:15] VITALS: BP 148/73; PULSE 90; RESP 20; TEMP 98; O2SAT 98
--- NOTE | 2024-03-26 04:15 | NUR ---
Arrival on floor Patient arrived on floor at this time. Patient requested to use restroom. Ambulated with assistance. Patient advised she needed to use the lice shampoo treatment to help treat lice. Patient verbalized understanding. Noted 20G IV to right wrist, saline locked.
--- NOTE | 2024-03-26 04:30 | NUR ---
Lice shampoo treatment Patient placed in shower by Aretha HILL. Advised to let shampoo sit in hair once lathered for treatment to work. Verbalized understanding. Patient tolerated treatment well for 10 minutes. Patient rinsed off and dried. New gown placed on patient. Patient placed on tele monitor. Patient in bed, supine. HOB elevated. Side rails up x2, bed in lowest setting and locked in place. Call light within reach.
[2024-03-26] MEDS: INSULIN humuLIN R 100 UNIT/ML 3ML SQ SCH (06:40)
--- NOTE | 2024-03-26 06:40 | NUR ---
RBS 95 mg/dL No insulin coverage needed at this time per insulin sliding scale.
[2024-03-26] MEDS ORDERED: PERM59LI8 TP (07:43)
--- NOTE | 2024-03-26 07:55 | DS ---
Discharge Summary Hospital Course Summary: DATE OF ADMISSION:[03/25/2024] DATE OF DISCHARGE:[03/26/2024] DISPOSITION:[Home] CONDITION:[Medically stable] CONSULTANTS:[None] FOLLOW UP APPOINTMENTS:[PCP 2 to 3 days, psych within 1 to 2 weeks] PROCEDURES:[None] IMAGING: report attached to summary MICROBIOLOGY: report attached to summary ACTIVITY:[Independent] HOME MEDICATIONS: see med recc NEW MEDICATIONS:[See med rec] EMERGENCY INSTRUCTIONS: The patient was instructed to present to the nearest Emergency departmentr or call 911 once their symptoms will return or worsen [employer] Director(s): Ms. Valles is 69-year-old female significant past medical history of essential hypertension, COPD, chronic muscle spasms and history of psychosis who presented to the ED with multiple chief complaints. Patient was recently discharge from [facility]. The patient is homeless and was found at a [employer] convenience store and was brought here for ongoing issues of diarrhea, ear pain, and head lice. CT abdomen showed large amount of fecal material in the colon. Left renal cyst 2.5 cm no ascites Mery labs. Patient already had multiple bowel movements and per repeat KUB is negative. Patient received Permethrin cream and we will also discharge her on one extra. Patient stated that she will go home clean her house and she will apply another cream to make sure there is nothing on her body. Follow up with PCP in 2 to 3 days Procedure(s): PHYSICAL EXAM GENERAL APPEARANCE: The patient is awake, alert, and oriented, in no acute cardiopulmonary distress. NEUROLOGICAL: Cranial nerves II-XII grossly intact. Motor is 5/5 in bilateral upper and lower extremities proximal to distal. No sensory deficits. HEENT: Head lice. Face is symmetric. Pupils are equal and reactive. Extraocular movements are intact. NECK: Supple. No JVD. No thyromegaly. No submental, submandibular, pre- /postauricular, occipital or supraclavicular lymphadenopathy. CHEST: Normal chest expansion. No Telemetry. LUNGS: Absence of any rales, rhonchi or any wheezing. CARDIOVASCULAR: Regular. S1 and S2 normal. No appreciable rubs, murmurs or gallops. ABDOMEN: Soft, nontender, and nondistended. There is no rebound, voluntary guarding, or rigidity. : Deferred. No Estrada. EXTREMITIES: Non-edematous and not cyanotic. No clubbing. Good capillary refill. SKIN: No skin breakdown. Assessment/Plan: ASSESSMENT: Acute abdominal pain, POA Diarrhea, POA, large amount of stool in the colon per CT 03/26/2024 Chronic constipation Left renal cyst measuring 2.5 cm, per CT 03/26/2024 Lice infestation, POA Anemia Hyperglycemia Chronic problem list: COPD, diabetes mellitus type 2, hypertension, tobacco abuse, alcohol abuse, PVD, history of psychosis, history of chronic muscle spasms Home Medications: Active Scripts Guaifenesin/Dextromethorphan (Guaifenesin Dm Syrup) 100 Mg-10 Mg/5 Ml Syrup, 5 ML PO q6 hours PRN, #237 ML 0 Refills Prov:NICKIE ROSSI NP 11/23/23 Levofloxacin (Levofloxacin) 500 Mg Tablet, 500 MG PO DAILY for 7 Days, #7 TAB Prov:ADELAIDA MALDONADO MD 11/24/21 Prednisone (Prednisone) 20 Mg Tablet, 40 MG PO DAILYBKFST for 7 Days, #14 TAB Prov:ADELAIDA MALDONADO MD 11/24/21 Albuterol Sulfate (Proventil Hfa) 6.7 Gm Hfa.aer.ad, 6.7 GM IH Q4HPRN PRN for SHORTNESS OF BREATH/WHEEZING for 30 Days, #1 INHALER 3 Refills Prov:ADELAIDA MALDONADO MD 11/24/21 Lisinopril (Lisinopril) 40 Mg Tablet, 40 MG PO DAILY, #30 TAB 0 Refills Prov:ADELAIDA MALDONADO MD 11/24/21 Cyclobenzaprine HCl (Cyclobenzaprine HCl) 10 Mg Tablet, 10 MG PO BID PRN for PAIN LEVEL 6 TO 10 for 7 Days, #15 TAB dont take while driving or operating machinery Prov:ABDIAZIZ MARSHALL MD 02/17/21 Ibuprofen (Advil) 200 Mg Tablet, 600 MG PO Q6HPRN PRN for PAIN LEVEL 1 TO 5 for 7 Days, #30 TAB 0 Refills take with food Prov:ABDIAZIZ MARSHALL MD 02/17/21 Time spent arranging discharge: 31-60 minutes ATTESTATION BY PHYSICIAN I have seen and examined the patient. I reviewed the documentation, medical decision making, and treatment plan as noted by the mid-level provider above. I agree with the findings and plan of care. Salome Fraga MD, [facility] Mar 26, 2024 07:55
[2024-03-26 08:01] VITALS: BP 151/78; PULSE 94; RESP 16; TEMP 97.8
[2024-03-26] MEDS ORDERED: PERMETHRIN LOTION 1% 59ML BOTTLE TP ONE ×2 (09:00→10:00)
--- NOTE | 2024-03-26 09:35 | HMCIMG ---
ABD 1VW REASON: constaipation FINDINGS: Single image of the abdomen was obtained. There is moderate solid fecal material in the a sending and transverse colon which could reflect constipation. There is minimal solid fecal material in the descending or rectosigmoid colon. Bowel gas pattern appears otherwise unremarkable. IMPRESSION: 1. Moderate to large amount solid fecal material in the a sending and transverse colon consistent with constipation.
[2024-03-26 09:48] VITALS: O2SAT 91
[2024-03-26] MEDS: ENOXAPARIN SODIUM 30 MG/0.3 ML SQ SCH (09:48)
[2024-03-26] MEDS: MAGNESIUM CITRATE 296 ML SOLUTION PO ONE (10:54)
[2024-03-26] MEDS: LACTULOSE 20 GM/30 ML UDCUP PO PRN (10:54)
[2024-03-26 12:00] VITALS: BP 128/75; PULSE 89; RESP 17; TEMP 98.3
[2024-03-26] MEDS: polyETHYLene GLYCol 3350 17 GM POWD.PACK PO ONE (13:23)
[2024-03-26 16:00] VITALS: BP 139/87; PULSE 89; RESP 18; TEMP 97.6
--- NOTE | 2024-03-26 16:20 | NUR ---
DISCHARGE PT PIV DC'D PT AND DAUGHTER VERBALIZED UNDERSTANDING OF DISCHARGE INSTRUCTIONS PT GATHERED AND TOOK ALL BELONGINGS PT AND DAUGHTER HAD NO FURTHER QUESTIONS AT TIME OF DISCHARGE
== END 2024-03-26 16:55 | disposition home or self-care (01) ==
LOC: EDH 21:43 → EDHIP 03-26 02:25 → 3AH 03-26 04:16
PROVIDERS: ADMIT Hospitalist; ATTEND Hospitalist
DX: R10.9 Unspecified abdominal pain (principal); K59.09 Other constipation; N28.1 Cyst of kidney, acquired; R42 Dizziness and giddiness; D64.9 Anemia, unspecified; E11.65 Type 2 diabetes mellitus with hyperglycemia; J44.9 Chronic obstructive pulmonary disease, unspecified; I10 Essential (primary) hypertension; E11.51 Type 2 diabetes mellitus with diabetic peripheral angiopathy without gangrene; I73.9 Peripheral vascular disease, unspecified; R44.3 Hallucinations, unspecified; M62.838 Other muscle spasm; B85.0 Pediculosis due to Pediculus humanus capitis; R19.7 Diarrhea, unspecified; H92.09 Otalgia, unspecified ear; F17.200 Nicotine dependence, unspecified, uncomplicated; Z59.00 Homelessness unspecified; Z79.899 Other long term (current) drug therapy
CPT/HCPCS: 96374; 99285; 80053; 85025; 81001; 36415; 74177; 96372; 82948 ×3; 74018; J7120; J0360; Q9967; G0378 ×14; J1650

== ENCOUNTER 2024-09-04 20:39 | Inpatient (IN) | payer OTHER, MEDICARE ==
[~2024-09-04] VITALS: Ht 165.1 cm; Wt 66.2 kg
[~2024-09-04 20:39] MED LIST changes: +PERM59LI8 TP
[2024-09-04 21:48] LABS: BASOPHILS # (AUTO) 0.04 K/uL (0.00-0.20); BASOPHILS % (AUTO) 0.4 % (0.0-5.0); EOSINOPHILS # (AUTO) 0.13 K/uL (0.00-0.70); EOSINOPHILS % (AUTO) 1.5 % (0.0-8.0); HEMATOCRIT 32.5 % (36-48); IMMATURE GRANULOCYTE ABSOLUTE 0.04 K/uL (0-1); LYMPHOCYTES # (AUTO) 2.8 K/uL (1.0-4.8); LYMPHOCYTES % (AUTO) 31.1 % (21.0-51.0); MEAN CORPUSCULAR HEMOGLOBIN 19.8 pg (27.0-33.0); MEAN CORPUSCULAR HGB CONC 27.7 g/dL (32.0-36.0); MEAN CORPUSCULAR VOLUME 71.4 fL (79-99); MONOCYTES # (AUTO) 1.2 K/uL (0.1-1.0); MONOCYTES % (AUTO) 13.1 % (3.0-13.0); NEUTROPHILS # (AUTO) 4.8 K/uL (1.8-7.7); NEUTROPHILS % (AUTO) 53.5 % (40.0-77.0); PLATELET COUNT (AUTO) 441 K/uL (130-400); RED BLOOD CELL COUNT(AUTO) 4.55 MIL/uL (4.00-5.50); RED CELL DISTRIBUTION WIDTH 21.2 % (11.0-15.5); WHITE BLOOD COUNT (AUTO) 8.9 K/uL (4.8-10.8)
[2024-09-04 21:59] LABS: CREATININE 0.5 mg/dL (0.5-1.0); POTASSIUM 3.8 mmol/L (3.5-5.1)
[2024-09-04 22:07] LABS: B-TYPE NATRIURETIC PEPTIDE 196 pg/mL (0-100)
--- NOTE | 2024-09-04 22:40 | NUR ---
PT CARE ASSUMED AT THIS TIME
[2024-09-04 22:47] LABS: COVID19 (SARS ANTIGEN RAPID) PRESUMPTIVE NEGATIVE (NEGATIVE); INFLUENZA TYPE A Negative For Type A (NEGATIVE); INFLUENZA TYPE B Negative For Type B (NEGATIVE)
[2024-09-04 22:50] VITALS: TEMP 98.1
[2024-09-04 23:23] VITALS: PULSE 88; RESP 18
[2024-09-04] MEDS: IpraTROPium/alBUTERol SULFATE 3 ML SOLUTION IH ONE (23:23)
[2024-09-04 23:24] VITALS: PULSE 88; RESP 18; O2SAT 97
--- NOTE | 2024-09-05 00:19 | ERN ---
General Chief Complaint: Dyspnea/Respdistress Stated Complaint: RESPIRATORY DISTRESS Time Seen by MD: 21:14 Time Seen by Midlevel: 21:14 Source: patient History of Present Illness Initial Comments 69-year-old female who presents to the emergency department by EMS due to shortness of breath. Patient reports she has been having a cough, congestion ongoing for a week but initiated with shortness of breath over the past couple of days. Patient uses oxygen at home. PMHx CHF, COPD, DM, HTN Allergies: Coded Allergies: No Known Drug Allergies (Unverified Allergy, Unknown, 02/17/21) Home Meds Active Scripts Permethrin (Lice Treatment) 1 % Liquid, 59 ML TP ONCE, #2 TUBE 0 Refills Prov:BEVERLY NOLAN RAMPMAN 03/26/24 Guaifenesin/Dextromethorphan (Guaifenesin Dm Syrup) 100 Mg-10 Mg/5 Ml Syrup, 5 ML PO q6 hours PRN, #237 ML 0 Refills Prov:NICKIE ROSSI NP 11/23/23 Levofloxacin (Levofloxacin) 500 Mg Tablet, 500 MG PO DAILY for 7 Days, #7 TAB Prov:ADELIADA MALDONADO MD 11/24/21 Prednisone (Prednisone) 20 Mg Tablet, 40 MG PO DAILYBKFST for 7 Days, #14 TAB Prov:ADELAIDA MALDONADO MD 11/24/21 Albuterol Sulfate (Proventil Hfa) 6.7 Gm Hfa.aer.ad, 6.7 GM IH Q4HPRN PRN for SHORTNESS OF BREATH/WHEEZING for 30 Days, #1 INHALER 3 Refills Prov:ADELAIDA MALDONADO MD 11/24/21 Lisinopril (Lisinopril) 40 Mg Tablet, 40 MG PO DAILY, #30 TAB 0 Refills Prov:ADELAIDA MALDONADO MD 11/24/21 Cyclobenzaprine HCl (Cyclobenzaprine HCl) 10 Mg Tablet, 10 MG PO BID PRN for PAIN LEVEL 6 TO 10 for 7 Days, #15 TAB dont take while driving or operating machinery Prov:ABDIAZIZ MARSHALL MD 02/17/21 Ibuprofen (Advil) 200 Mg Tablet, 600 MG PO Q6HPRN PRN for PAIN LEVEL 1 TO 5 for 7 Days, #30 TAB 0 Refills take with food Prov:ABDIAZIZ MARSHALL MD 02/17/21 Past Medical History Past Medical History: CHF, COPD, Diabetes-Type II, Hypertension Medical History Other: Tobacco abuse, PVD Past Surgical History: BTL Surgical History Other: TUBAL LIGATION Family History Family History: Negative Social History Social History: Smokers, ETOH Female( History) History: Not Applicable ROS Dictation Constitutional: Negative for fever,chills, and weight loss Eyes: Negative for injury, pain,redness, and discharge ENT: Negative for injury,pain or swelling Cardiovascular: Negative for chest pain, palpitations, and edema Respiratory: Positive for shortness of breath, cough Negative for wheezing Abdomen/GI: Negative for abdominal pain, nausea, vomiting, diarrhea, and constipation Back: Negative for injury and pain : Negative for painful urination, bleeding or discharge MS/Extremity: Negative for injury and deformity Skin: Negative for rash, and discoloration Neuro: Negative for headache, weakness, numbness, tingling, and seizure Psych: Negative for suicide ideation, homicidal ideation, and hallucinations Physical Exam Physical Exam Dictation General: awake, alert, no acute distress Head/Face: Normocephalic, atraumatic Eyes: PERRL, EOMI, normal conjunctiva ENT: oral cavity clear, oral mucosa moist Neck: Supple, normal range of motion Cardiovascular: RRR, normal S1/S2 Respiratory: CTAB, no respiratory distress, crackles auscultated bilaterally Abdomen: Soft, non-tender, non-distended, no guarding or rebound. Skin: Warm, dry, normal turgor, no rash MS/Extremity: Pulses equal, no cyanosis, neurovascular intact, FROM Neuro: COAx4, GCS 15, strength 5/5, CN 2-12 intact, normal cerebellar exam, normal gait Psych: Normal behavior, mood, and affect normal Results Laboratory and Microbiology Lab and Micro Result Laboratory Tests Test 09/04/24 21:42 09/04/24 22:20 White Blood Count 8.9 K/uL (4.8-10.8) Red Blood Count 4.55 MIL/uL (4.00-5.50) Hemoglobin 9.0 g/dL (12.0-16.0) L Hematocrit 32.5 % (36-48) L Mean Corpuscular Volume 71.4 fL (79-99) L Mean Corpuscular Hemoglobin 19.8 pg (27.0-33.0) L Mean Corpuscular Hemoglobin Concent 27.7 g/dL (32.0-36.0) L Red Cell Distribution Width 21.2 % (11.0-15.5) H Platelet Count 441 K/uL (130-400) H Mean Platelet Volume 9.2 fL (7.5-10.5) Immature Granulocyte % (Auto) 0.4 % (0-1) Neutrophils (%) (Auto) 53.5 % (40.0-77.0) Lymphocytes (%) (Auto) 31.1 % (21.0-51.0) Monocytes (%) (Auto) 13.1 % (3.0-13.0) H Eosinophils (%) (Auto) 1.5 % (0.0-8.0) Basophils (%) (Auto) 0.4 % (0.0-5.0) Neutrophils # (Auto) 4.8 K/uL (1.8-7.7) Lymphocytes # (Auto) 2.8 K/uL (1.0-4.8) Monocytes # (Auto) 1.2 K/uL (0.1-1.0) H Eosinophils # (Auto) 0.13 K/uL (0.00-0.70) Basophils # (Auto) 0.04 K/uL (0.00-0.20) Absolute Immature Granulocyte (auto 0.04 K/uL (0-1) Nucleated Red Blood Cells 0.0 % (0.0-0.19) Red Blood Cell Morphology See comments Sodium Level 145 mmol/L (136-145) Potassium Level 3.8 mmol/L (3.5-5.1) Chloride Level 110 mmol/L (101-111) Carbon Dioxide Level 33 mmol/L (21-32) H Blood Urea Nitrogen 23 mg/dL (7-18) H Creatinine 0.5 mg/dL (0.5-1.0) Glomerular Filtration Rate Calc 100 mL/min (>90) Random Glucose 128 mg/dL (70-105) H Total Calcium 8.5 mg/dL (8.5-10.1) B-Type Natriuretic Peptide 196 pg/mL (0-100) H Influenza Type A Antigen Negative For Type A Influenza Type B Antigen Negative For Type B SARS-CoV-2 Antigen (Rapid) PRESUMPTIVE NEGATIVE Labs Reviewed?: Yes MDM MDM: Differential diagnosis: Rationale: 69-year-old female who presents to the emergency department by EMS due to shortness of breath. Patient reports she has been having a cough, congestion ongoing for a week but initiated with shortness of breath over the past couple of days. Patient uses oxygen at home. PMHx CHF, COPD, DM, HTN Patient's daughter contacted the emergency department stating her mother left home (from out of town) without her oxygen, therefore patient has been without oxygen and does not have access to oxygen at home. Per physical examination patient has a wet cough, crackles auscultated bilaterally. Labs obtained indicate anemia with hemoglobin of 9, BNP mildly elevated at 196, serology negative for influenza and SARs. Chest x-ray obtained compared with previous, no acute abnormalities. Patient was placed on 4 L of O2 and administered DuoNeb treatment. On re-examination patient verbalized she felt a little bit better but continued with the cough and difficulty breathing. Patient was educated on findings, diagnosis, decision for admission. Patient verbalized understanding and agrees with admission. Case discussed with benchmark who accepts admission. Previous outside records reviewed: Old ER visits. Risk of complication and/or morbidity or mortality of patient management: None Medications-Per medication reconciliation Need for hospitalization: Patient does meet criteria for hospitalization. Need for emergency major/minor surgery: No There are no social concerns with this patient. Prescription drug management Prescriptions will include symptomatic care Patient's prior external medical records from other ER visits were reviewed by me as indicated. Prior testing and results from previous visits were reviewed. Prior tests were taken into account with medical decision making and resource utilization, independent historian/historians were used to obtain complete medical history. I independently interpreted the test that were performed, results were reviewed by me and considered findings on radiology if ordered. Medical management and examination interpretation discussions were had by me with other qualified healthcare professionals as indicated for the patient's care. ED Course Orders Procedure Category Date Status Time Cbc With Differential LAB 09/04/24 Complete 21:17 Basic Metabolic Panel LAB 09/04/24 Complete 21:17 B-Type Natriuretic LAB 09/04/24 Complete Peptide 21:17 Chest 1vw RAD 09/04/24 Taken 21:17 Covid19 (Sars Antigen LAB 09/04/24 Complete Rapid) 21:17 Influenza Type A & B, LAB 09/04/24 Complete Rapid 21:17 Ipratropium/Albuterol PHA 09/04/24 Complete Neb (Duoneb) 23:00 Current Medications Medications (Trade) Dose Ordered Sig/Jo Route PRN Reason Start Time Stop Time Status Last Admin Dose Admin Albuterol (DUOneb) 1 udvial ONCE ONCE IH 09/04/24 23:00 09/04/24 23:01 DC 09/04/24 23:23 Vital Signs Date Time Temp Pulse Resp B/P (MAP) Pulse Ox O2 Delivery O2 Flow Rate FiO2 09/04/24 23:24 88 18 Nasal Cannula 4.0 36 09/04/24 23:23 88 18 09/04/24 22:50 98.1 85 19 146/49 98 Nasal Cannula* 2 28 09/04/24 22:16 72 18 130/52 99 Nasal Cannula* 2 28 09/04/24 22:10 98.4 72 18 130/52 99 Nasal Cannula 2.0 DX & DISP Disposition: Inpatient Decision to Admit Date: September 05, 2024 Departure Impression: Primary Impression: COPD exacerbation Additional Impression: Anemia Condition: Stable Referrals: SELF,REFERRAL (PCP) I performed the substantive portion of the visit. I have reviewed and personally made and approve the management plan that is documented in the notes by myself or the MAYA. I acknowledge full responsibility for the patient's management plan. RAFY LEÓN September 05, 2024 00:19
[2024-09-05] MEDS: DiphenhydrAMINE HCL 50 MG/ML VIAL IV ONE (03:35)
--- NOTE | 2024-09-05 05:17 | HP ---
[facility] HISTORY AND PHYSICAL Date of Service: September 05, 2024 Time of Service: 01:00 Supervising physicians/attending physicians: Dr. Suarez and Dr. Jessica Fraga HISTORY OF PRESENT ILLNESS: Ms. Valles is a 69-year-old female with PMHx CHF, COPD, smoker, EtOH use, DM, and HTN who who presented to [facility] ED via EMS for evaluation of shortness of breath. Patient reports she has been having a cough, congestion ongoing for a week but initiated with shortness of breath over the past couple of days. Patient uses oxygen at home. Per ED provider, the patient's daughter contacted the emergency department stating her mother left home (from out of town) without her oxygen, therefore patient has been without oxygen and does not have access to oxygen at home. Per physical examination patient has a wet cough, crackles auscultated bilaterally. Labs obtained indicate anemia with hemoglobin of 9, BNP mildly elevated at 196, serology negative for influenza and SARs. Chest x-ray obtained compared with previous, no acute abnormalities. Patient was placed on 4 L of O2 by ED and administered DuoNeb treatment. ED re-examined the patient who verbalized she felt a little bit better but continued with the cough and difficulty breathing. ED provider request patient be admitted with the diagnosis of COPD exacerbation and anemia. I assess the patient at bedside in room ED 10. The patient was asleep, breathing was even, unlabored, in no distress. Patient was informed of the plan of care which she agreed on. REVIEW OF SYSTEMS 12-point ROS reviewed with the patient. All pertinent positives mentioned above. Otherwise negative, noncontributory, non-pertinent. PAST MEDICAL HISTORY: As mentioned above PAST SURGICAL HISTORY: BTL PAST SOCIAL HISTORY: Patient reports tobacco use and EtOH use. Patient denies illicit drug use. Coded Allergies: No Known Drug Allergies (Unverified Allergy, Unknown, 02/17/21) PHYSICAL EXAM GENERAL APPEARANCE: The patient is awake, alert, and oriented, in no acute cardiopulmonary distress. NEUROLOGICAL: Cranial nerves II-XII grossly intact. Motor is 5/5 in bilateral upper and lower extremities proximal to distal. No sensory deficits. HEENT: Face is symmetric. Pupils are equal and reactive. Extraocular movements are intact. NECK: Supple. No JVD. No thyromegaly. No submental, submandibular, pre- /postauricular, occipital or supraclavicular lymphadenopathy. CHEST: Normal chest expansion. No Telemetry. LUNGS: Absence of any rales, rhonchi or any wheezing. CARDIOVASCULAR: Regular. S1 and S2 normal. No appreciable rubs, murmurs or gallops. ABDOMEN: Soft, nontender, and nondistended. There is no rebound, voluntary guarding, or rigidity. : Deferred. No Estrada. EXTREMITIES: Non-edematous and not cyanotic. No clubbing. Good capillary refill. SKIN: No skin breakdown. Vital Sign (Last 24 Hours) 09/04/24 09/04/24 22:50 23:24 Temp 98.1 Pulse 88 Resp 18 B/P (MAP) 146/49 Pulse Ox 98 O2 Delivery Nasal Cannula O2 Flow Rate 4.0 FiO2 36 LABS: Laboratory: Test 09/04/24 22:20 09/04/24 21:42 Range/Units Influenza Type A Antigen Negative For Type A NEGATIVE Influenza Type B Antigen Negative For Type B NEGATIVE SARS-CoV-2 Antigen (Rapid) PRESUMPTIVE NEGATIVE NEGATIVE White Blood Count 8.9 4.8-10.8 K/uL Red Blood Count 4.55 4.00-5.50 MIL/uL Hemoglobin 9.0 L 12.0-16.0 g/dL Hematocrit 32.5 L 36-48 % Mean Corpuscular Volume 71.4 L 79-99 fL Mean Corpuscular Hemoglobin 19.8 L 27.0-33.0 pg Mean Corpuscular Hemoglobin Concent 27.7 L 32.0-36.0 g/dL Red Cell Distribution Width 21.2 H 11.0-15.5 % Platelet Count 441 H 130-400 K/uL Mean Platelet Volume 9.2 7.5-10.5 fL Immature Granulocyte % (Auto) 0.4 0-1 % Neutrophils (%) (Auto) 53.5 40.0-77.0 % Lymphocytes (%) (Auto) 31.1 21.0-51.0 % Monocytes (%) (Auto) 13.1 H 3.0-13.0 % Eosinophils (%) (Auto) 1.5 0.0-8.0 % Basophils (%) (Auto) 0.4 0.0-5.0 % Neutrophils # (Auto) 4.8 1.8-7.7 K/uL Lymphocytes # (Auto) 2.8 1.0-4.8 K/uL Monocytes # (Auto) 1.2 H 0.1-1.0 K/uL Eosinophils # (Auto) 0.13 0.00-0.70 K/uL Basophils # (Auto) 0.04 0.00-0.20 K/uL Absolute Immature Granulocyte (auto 0.04 0-1 K/uL Nucleated Red Blood Cells 0.0 0.0-0.19 % Red Blood Cell Morphology See comments Sodium Level 145 136-145 mmol/L Potassium Level 3.8 3.5-5.1 mmol/L Chloride Level 110 101-111 mmol/L Carbon Dioxide Level 33 H 21-32 mmol/L Blood Urea Nitrogen 23 H 7-18 mg/dL Creatinine 0.5 0.5-1.0 mg/dL Glomerular Filtration Rate Calc 100 >90 mL/min Random Glucose 128 H 70-105 mg/dL Total Calcium 8.5 8.5-10.1 mg/dL B-Type Natriuretic Peptide 196 H 0-100 pg/mL DIAGNOSTICS / RADIOLOGY: [ ] ASSESSMENT: COPD with acute exacerbation, POA Anemia chronic disease Acute on chronic kidney disease, GFR 62, POA Electrolyte derangement (hyponatremia, hypochloremia Hyperglycemia Chronic problem list: CHF, COPD, diabetes mellitus type 2, hypertension, tobacco abuse, PVD PLAN: -Admit to Medical floor with continuous telemetry monitoring -Monitor respiratory status closely. -Continue oxygen therapy as needed. Titrate oxygen prn to keep Spo2>/+=92%. -Albuterol and Atrovent scheduled. -RT to provide IS and education on use. -Robitussin DM as needed cough. -Solu-Medrol IV daily. -Continue antibiotic therapy: Doxy IV -p.r.n. medications for: Pain, nausea, vomiting, constipation, fever, hypertension, shortness of breath. -Glucometer checks AC & HS needed with insulin regular sliding scale coverage as needed. -Blood pressure checks every 4 hours and as needed. -Reconcile home medications once available. -AM labs. -Monitor renal and liver function -Monitor electrolytes and treat accordingly. -GI and DVT prophylaxis ADVANCED CARE PLANNING 1. Which of the following were discussed? Hospice Care - No Therapeutic options - Yes Advance Directives - Yes Other discussions - 2. Discussed with who? Patient 3. Voluntary nature of this service was explained to the patient? Yes 4. Amount of time spent - __ over 45 minutes 5. Reviewed by Physician? (if this service was performed by MAYA) Yes This dictation was prepared using [employer] voice recognition software. As a result, errors may occur. When identified, these errors have been corrected. While every attempt is made to correct errors during dictation, errors may still exist. ATTESTATION BY PHYSICIAN I have seen and examined the patient. I reviewed the documentation, medical decision making, and treatment plan as noted by the mid-level provider above. I agree with the findings and plan of care. JAIRON BROOKE DETENTION OFFICER September 05, 2024 05:17
[2024-09-05] MEDS ORDERED: ondanSETRON 4MG INJ IVP PRN (06:00)
[2024-09-05] MEDS ORDERED: TEMAZepam 15 MG CAPSULE PO PRN (06:00)
[2024-09-05] MEDS ORDERED: LAbetaLOL 20MG SYG IV PRN (06:00)
[2024-09-05] MEDS ORDERED: LACTULOSE 20 GM/30 ML UDCUP PO PRN (06:00)
[2024-09-05] MEDS ORDERED: acetaMINOPHEN 325 MG TAB PO PRN (06:00)
[2024-09-05] MEDS ORDERED: doCUSate SODIUM 100 MG CAP PO PRN (06:00)
[2024-09-05] MEDS ORDERED: acetaMINOPHEN 650 MG SUPPOSITORY RC PRN (06:00)
[2024-09-05 07:00] VITALS: BP 157/60; O2SAT 98
[2024-09-05 07:10] VITALS: PULSE 85; RESP 18
[2024-09-05] MEDS: IpraTROPium 0.5 MG/2.5 ML INH IH SCH (07:10)
[2024-09-05] MEDS: ALBUTEROL 0.083% 2.5 MG/3 ML INH IH SCH (07:10)
[2024-09-05 07:19] VITALS: RESP 18; O2SAT 97
[2024-09-05] MEDS: guaiFENesin SUGAR-FREE 100 MG/5 ML UDCUP PO ONE (07:19)
--- NOTE | 2024-09-05 07:21 | NUR ---
REPORT GIVEN TO ALLAN STRANGE AT THIS TIME
[2024-09-05] MEDS: INSULIN humuLIN R 100 UNIT/ML 3ML SQ SCH (07:30)
--- NOTE | 2024-09-05 07:54 | NUR ---
Patient refuses vital signs to be taken. patient is alert. oriented in person. Desoriented in time, place and situation.
--- NOTE | 2024-09-05 08:35 | NUR ---
Patient is confused, not able to tell me her home medications.
[2024-09-05] MEDS: PANTOPrazole 40 MG TAB DR PO SCH (08:44)
[2024-09-05] MEDS: DOXYCYCLINE 100MG+NS 250ML IV SCH (08:44)
[2024-09-05] MEDS: Solu-medROL 40MG VIAL IVP SCH (08:45)
[2024-09-05] MEDS: ENOXAPARIN SODIUM 40 MG/0.4 ML SYRINGE SQ SCH (08:47)
--- NOTE | 2024-09-05 09:10 | HMCIMG ---
Exam Type: CHEST 1VW Clinical Information: COUGH, SOB Comparison: None Findings: The lungs are clear of infiltrates. The heart is enlarged. Bony and soft tissue structures of the chest wall are unremarkable. IMPRESSION: Cardiomegaly. Clear lungs.
--- NOTE | 2024-09-05 12:56 | DS ---
Discharge Summary Hospital Course Summary: The patient has signed against medical advice Ms. Valles is a 69-year-old female with PMHx CHF, COPD, smoker, EtOH use, DM, and HTN who who presented to [facility] via EMS for evaluation of shortness of breath. Patient reports she has been having a cough, congestion ongoing for a week but initiated with shortness of breath over the past couple of days. Patient uses oxygen at home. Per ED provider, the patient's daughter contacted the emergency department stating her mother left home (from out of town) without her oxygen, therefore patient has been without oxygen and does not have access to oxygen at home. Per physical examination patient has a wet cough, crackles auscultated bilaterally. Labs obtained indicate anemia with hemoglobin of 9, BNP mildly elevated at 196, serology negative for influenza and SARs. Chest x-ray obtained compared with previous, no acute abnormalities. Patient was placed on 4 L of O2 by ED and administered DuoNeb treatment. ED re-examined the patient who verbalized she felt a little bit better but continued with the cough and difficulty breathing. ED provider request patient be admitted with the diagnosis of COPD exacerbation and anemia. I assess the patient at bedside in room ED 10. The patient was asleep, breathing was even, unlabored, in no distress. Patient was informed of the plan of care which she agreed on. I went into the emergency room to evaluate the patient today, I was informed by the nurse that took care of the patient that the patient decided to sign against medical advice. The patient alert oriented x3, not suicidal, not homicidal, long discussion was done regarding risk of her decision, however she decided to sign against medical advice. Assessment/Plan: FINAL DIAGNOSIS COPD with acute exacerbation, POA Anemia chronic disease Acute on chronic kidney disease, GFR 62, POA Electrolyte derangement (hyponatremia, hypochloremia Hyperglycemia Chronic problem list: CHF, COPD, diabetes mellitus type 2, hypertension, tobacco abuse, PVD Discharge Instructions: PATIENT HAS SIGNED AMA. Home Medications: Active Scripts Permethrin (Lice Treatment) 1 % Liquid, 59 ML TP ONCE, #2 TUBE 0 Refills Prov:BEVERLY NOLAN SIZING END BANDER 03/26/24 Guaifenesin/Dextromethorphan (Guaifenesin Dm Syrup) 100 Mg-10 Mg/5 Ml Syrup, 5 ML PO q6 hours PRN, #237 ML 0 Refills Prov:NICKIE ROSSI PATIENT SAFETY SITTER 11/23/23 Levofloxacin (Levofloxacin) 500 Mg Tablet, 500 MG PO DAILY for 7 Days, #7 TAB Prov:ADELAIDA MALDONADO MD 11/24/21 Prednisone (Prednisone) 20 Mg Tablet, 40 MG PO DAILYBKFST for 7 Days, #14 TAB Prov:ADELAIDA MALDONADO MD 11/24/21 Albuterol Sulfate (Proventil Hfa) 6.7 Gm Hfa.aer.ad, 6.7 GM IH Q4HPRN PRN for SHORTNESS OF BREATH/WHEEZING for 30 Days, #1 INHALER 3 Refills Prov:ADELAIDA MALDONADO MD 11/24/21 Lisinopril (Lisinopril) 40 Mg Tablet, 40 MG PO DAILY, #30 TAB 0 Refills Prov:ADELAIDA MALDONADO MD 11/24/21 Cyclobenzaprine HCl (Cyclobenzaprine HCl) 10 Mg Tablet, 10 MG PO BID PRN for PAIN LEVEL 6 TO 10 for 7 Days, #15 TAB dont take while driving or operating machinery Prov:ABDIAZIZ MARSHALL MD 02/17/21 Ibuprofen (Advil) 200 Mg Tablet, 600 MG PO Q6HPRN PRN for PAIN LEVEL 1 TO 5 for 7 Days, #30 TAB 0 Refills take with food Prov:ABDIAZIZ MARSHALL MD 02/17/21 Time spent arranging discharge: 31-60 minutes ARIANA FLAHERTY MD September 05, 2024 12:56
--- NOTE | 2024-09-06 00:40 | HMCSR ---
APPROVED REPORT EXAM: Two-dimensional and M-mode echocardiogram with Doppler and color Doppler. INDICATION ICD: Dyspnea R06.00 2D Dimensions RVDd4.4 cmLVEF(%)59.5 (>50%)LVED Vol(simp.)92.0 mL IVSd1.2 (0.7-1.1cm)FS(%)31 %LVES Vol(simp.)33.0 mL LVDd4.3 (3.8-5.6cm)LA (2D)5.3 (1.6-4.0cm)LVEF(%, simp.)64 % PWd1.4 (0.7-1.1cm)Ao Root(2D)2.9 (2.0-3.7cm)LA ESV INDEX (BP)57.91 mL/m2 IVSs1.5 cmLVOT diam2.3 (1.8-2.4cm) LVDs3.0 (2.5-4.0cm)IVC diam1.9 cm PWs2.0 cm Deformation Strain Apical 4-19.5 % Apical 2-21.4 % Apical 3-18.6 % Global Strain-19.9 % M-Mode Dimensions EPSS0.5 cm LA (MM)5.3 (1.6-4.0cm) Ao Root(MM)3.0 (2.0-3.7cm) Aortic Valve AoV Vmax1.5 m/Saman Peak GR9.5 mmHgLVOT Vmax1.4 m/s AoV VTI0.3 mAo Mean GR5.9 mmHgLVOT VTI0.29 m DEMETRIA (VMAX)4.17 cm2Al P1/2T515 msAVA (VTI) 4.2 cm2 Mitral Valve MV E Vmax99.4 cm/sDECEL Fifd130 ms MV A Vmax76.5 cm/sP 1/2 T50 ms E/A ratio1.3MVA (PHT)4.4 cm2 Pulmonary Valve PV Vmax1.2 m/sPV VTI0.25 mPV Mean GR3.4 mmHg PV Peak GR5.5 mmHg Tricuspid Valve TR Vmax3.7 m/sRAP (EST) 8 xlXsVZSD65.4 mmHg TR Peak GR54.4 mmHg Left Ventricle The left ventricle is normal in size. No regional wall motion abnormalities noted. Moderate concentri c left ventricular hypertrophy. Left ventricular systolic function is normal, estimated LVEF 55-60%. Indeterminate diastolic function. Right Ventricle The right ventricle is dilated. The right ventricular systolic function is normal. Atria The left atrium is severely dilated. LASVI 58mL/m�. The right atrium is dilated. Aortic Valve Aortic valve is trileaflet. The leaflets are mildly thickened and calcified. Mild aortic regurgitatio n. There is no aortic valvular stenosis. Mitral Valve The mitral valve is normal in structure. Trace-mild mitral regurgitation. There is no mitral valve st enosis. Tricuspid Valve The tricuspid valve is normal in structure. Severe tricuspid regurgitation. RVSP is 54 mmHg. Pulmonic Valve Pulmonic valve is not well visualized. Great Vessels The aortic root is normal in size. The IVC is normal in size and collapses <50% with inspiration. Pericardium There is no pericardial effusion. Other Information Quality : Adequate Conclusion The left atrium is severely dilated. LASVI 58mL/m�. The right atrium is dilated. The right ventricle is dilated. Moderate concentric left ventricular hypertrophy. No regional wall motion abnormalities noted. Left ventricular systolic function is normal, estimated LVEF 55-60%. Indeterminate diastolic function. Mild aortic regurgitation. Trace-mild mitral regurgitation. Severe tricuspid regurgitation. PASP is 62 mmHg. There is no pericardial effusion.
--- NOTE | 2024-09-06 17:11 | NUR ---
Transitional Phone Call Spoke to Yu Valles, Daughter [phone] (located/lives in the [place] area), states the patient left her home in [place] and some how got a bus ticket to [place]. [facility] patient was offered housing in [facility] but refused to sign a lease. Patient should be on oxygen and should be taking medication. At this time, [facility] may be staying at [facility]; otherwise patient is homeless. Patient makes her own decisions and receives social security.
== END 2024-09-05 11:25 | disposition left against medical advice (07) | DRG 191 ==
LOC: EDH 20:39 → EDHIP 09-05 00:27
PROVIDERS: ADMIT Internal Medicine; ATTEND Internal Medicine
DX: J44.1 Chronic obstructive pulmonary disease with (acute) exacerbation (principal); E87.1 Hypo-osmolality and hyponatremia; I13.0 Hypertensive heart and chronic kidney disease with heart failure and stage 1 through stage 4 chronic kidney disease, or unspecified chronic kidney disease; N17.9 Acute kidney failure, unspecified; I50.9 Heart failure, unspecified; E87.8 Other disorders of electrolyte and fluid balance, not elsewhere classified; E11.65 Type 2 diabetes mellitus with hyperglycemia; D63.1 Anemia in chronic kidney disease; E11.22 Type 2 diabetes mellitus with diabetic chronic kidney disease; E11.51 Type 2 diabetes mellitus with diabetic peripheral angiopathy without gangrene; N18.9 Chronic kidney disease, unspecified; K59.00 Constipation, unspecified; Z72.0 Tobacco use
CPT/HCPCS: 36415; 71045; 76376; 80048; 83880; 85025; 87426; 87804; 93306; 93356; 94640; 94664; 99285; G0378; J1200; J1650; J2919; J3490

== ENCOUNTER 2024-09-07 07:08 | Inpatient (IN) | payer OTHER, MEDICARE ==
[~2024-09-07] VITALS: Ht 165.1 cm; Wt 64.9 kg
[2024-09-07] VITALS (9 sets, daily range): BP systolic 128–141; BP diastolic 58–61; PULSE 78–92; RESP 18–24; TEMP 98.2–98.3; O2SAT 95–96
[2024-09-07] MEDS: Solu-medROL 125MG VIAL IVP ONE (07:34)
--- NOTE | 2024-09-07 07:48 | ERN ---
General Chief Complaint: Shortness of Breath Stated Complaint: SOB Time Seen by MD: 07:10 History of Present Illness Initial Comments Ms. Valles is a very pleasant 69-year-old female significant past medical history of COPD who comes in today was history of 3 days of progressively worsening shortness of breath, culminating an acute episode this evening prompting EMS activation. She reports increased mucus production that is clear and slimy, frequent sneezing and subjective chest tightness. She normally uses 2 L nasal cannula at home but reports no relief during this episode. She continues to smoke 1 pack a day despite previous counseling. She is currently homeless and has found outside a homeless group home where she believes she experienced an anxiety attack as well. She denies any fevers, chills, hemoptysis, nausea or vomiting. No recent sick contacts. No history of recent hospitalizations. She denies lower extremity swelling or calf tenderness. Allergies: Coded Allergies: No Known Drug Allergies (Unverified Allergy, Unknown, 02/17/21) Home Meds Active Scripts Permethrin (Lice Treatment) 1 % Liquid, 59 ML TP ONCE, #2 TUBE 0 Refills Prov:BEVERLY NOLAN GRAIN SCOOPER 03/26/24 Guaifenesin/Dextromethorphan (Guaifenesin Dm Syrup) 100 Mg-10 Mg/5 Ml Syrup, 5 ML PO q6 hours PRN, #237 ML 0 Refills Prov:NICKIE ROSSI [employer] 11/23/23 Levofloxacin (Levofloxacin) 500 Mg Tablet, 500 MG PO DAILY for 7 Days, #7 TAB Prov:ADELAIDA MALDONADO MD 11/24/21 Prednisone (Prednisone) 20 Mg Tablet, 40 MG PO DAILYBKFST for 7 Days, #14 TAB Prov:ADELAIDA MALDONADO MD 11/24/21 Albuterol Sulfate (Proventil Hfa) 6.7 Gm Hfa.aer.ad, 6.7 GM IH Q4HPRN PRN for SHORTNESS OF BREATH/WHEEZING for 30 Days, #1 INHALER 3 Refills Prov:ADELAIDA MALDONADO MD 11/24/21 Lisinopril (Lisinopril) 40 Mg Tablet, 40 MG PO DAILY, #30 TAB 0 Refills Prov:ADELAIDA MALDONADO MD 11/24/21 Cyclobenzaprine HCl (Cyclobenzaprine HCl) 10 Mg Tablet, 10 MG PO BID PRN for PAIN LEVEL 6 TO 10 for 7 Days, #15 TAB dont take while driving or operating machinery Prov:ABDIAZIZ MARSHALL MD 02/17/21 Ibuprofen (Advil) 200 Mg Tablet, 600 MG PO Q6HPRN PRN for PAIN LEVEL 1 TO 5 for 7 Days, #30 TAB 0 Refills take with food Prov:ABDIAZIZ MARSHALL MD 02/17/21 Past Medical History Past Medical History: CAD, CHF, COPD, Diabetes-Type II, Hypertension Medical History Other: Tobacco abuse, PVD Past Surgical History: Unknown Surgical History Other: TUBAL LIGATION Family History Family History: Negative Social History Social History: Smokers, ETOH Female( History) History: Not Applicable ROS Dictation Constitutional: Positive for shortness of breath, no fevers chills no weight loss Eyes: Negative for injury, pain,redness, and discharge ENT: Negative for injury,pain or swelling Cardiovascular: Positive for chest tightness Respiratory: Positive for worsening dyspnea, productive cough Abdomen/GI: Negative for abdominal pain, nausea, vomiting, diarrhea, and constipation Back: Negative for injury and pain : Negative for injury, bleeding and discharge MS/Extremity: Negative for injury and deformity Skin: Negative for rash, and discoloration Neuro: Negative for headache, weakness, numbness, tingling, and seizure Psych: Positive for anxiety Physical Exam Physical Exam Dictation General: Thin visibly dyspneic speaking in full sentences Head/Face: Normocephalic, atraumatic Eyes: PERRL, EOMI, vision at baseline ENT: oral cavity clear, TMs clear, no signs of infection Neck: Trachea midline, supple, no nuchal rigidity Cardiovascular: RRR, normal S1/S2, No MRGs, no JVD Respiratory: Diminished breath sounds bilaterally, expiratory wheezing no rales Abdomen: Soft, non-tender, non-distended, normal bowel sounds, no guarding or rebound. Skin: Warm, dry, normal turgor, no rash MS/Extremity: Pulses equal, no cyanosis, neurovascular intact, FROM Neuro: COAx4, GCS 15, strength 5/5, CN 2-12 intact, normal cerebellar exam, normal gait, Psych: Normal behavior, mood, and affect normal Results Laboratory and Microbiology Lab and Micro Result Laboratory Tests Test 09/07/24 07:47 White Blood Count 7.0 K/uL (4.8-10.8) Red Blood Count 5.43 MIL/uL (4.00-5.50) Hemoglobin 10.8 g/dL (12.0-16.0) L Hematocrit 39.3 % (36-48) # Mean Corpuscular Volume 72.4 fL (79-99) L Mean Corpuscular Hemoglobin 19.9 pg (27.0-33.0) L Mean Corpuscular Hemoglobin Concent 27.5 g/dL (32.0-36.0) L Red Cell Distribution Width 22.0 % (11.0-15.5) H Platelet Count 471 K/uL (130-400) H Mean Platelet Volume 8.9 fL (7.5-10.5) Immature Granulocyte % (Auto) 0.3 % (0-1) Neutrophils (%) (Auto) 51.9 % (40.0-77.0) Lymphocytes (%) (Auto) 34.1 % (21.0-51.0) Monocytes (%) (Auto) 11.0 % (3.0-13.0) Eosinophils (%) (Auto) 2.0 % (0.0-8.0) Basophils (%) (Auto) 0.7 % (0.0-5.0) Neutrophils # (Auto) 3.7 K/uL (1.8-7.7) Lymphocytes # (Auto) 2.4 K/uL (1.0-4.8) Monocytes # (Auto) 0.8 K/uL (0.1-1.0) Eosinophils # (Auto) 0.14 K/uL (0.00-0.70) Basophils # (Auto) 0.05 K/uL (0.00-0.20) Absolute Immature Granulocyte (auto 0.02 K/uL (0-1) Nucleated Red Blood Cells 0.0 % (0.0-0.19) Sodium Level 145 mmol/L (136-145) Potassium Level 3.3 mmol/L (3.5-5.1) L Chloride Level 105 mmol/L (101-111) Carbon Dioxide Level 33 mmol/L (21-32) H Blood Urea Nitrogen 14 mg/dL (7-18) Creatinine 0.5 mg/dL (0.5-1.0) Glomerular Filtration Rate Calc 100 mL/min (>90) Random Glucose 103 mg/dL (70-105) Lactic Acid Level 1.4 mmol/L (0.8-2.5) Total Calcium 8.7 mg/dL (8.5-10.1) Troponin I High Sensitivity 26 ng/L (4-50) B-Type Natriuretic Peptide 158 pg/mL (0-100) H MDM Ms. Gonzalez is presenting today with acute respiratory distress and hypoxic respiratory failure likely related to COPD exacerbation patient will be admitted for further evaluation and care MDM: Differential diagnosis: COPD exacerbation Rationale: Tests considered and ordered secondary to shared decision making include: labs, ECG and radiology Previous outside records reviewed: Old ER visits. Risk of complication and/or morbidity or mortality of patient management: None Medications-Per medication reconciliation Need for hospitalization: Patient does meet criteria for hospitalization. Need for emergency major/minor surgery: No There are no social concerns with this patient. Prescription drug management Prescriptions will include symptomatic care Patient's prior external medical records from other ER visits were reviewed by me as indicated. Prior testing and results from previous visits were reviewed. Prior tests were taken into account with medical decision making and resource utilization, independent historian/historians were used to obtain complete medical history. I independently interpreted the test that were performed, results were reviewed by me and considered findings on radiology if ordered. Medical management and examination interpretation discussions were had by me with other qualified healthcare professionals as indicated for the patient's care. ED Course Orders Procedure Category Date Status Time 12 Lead Ekg Tracing- EKG 09/07/24 Logged Technical 07:17 Troponin I High LAB 09/07/24 Complete Sensitivity 07:17 B-Type Natriuretic LAB 09/07/24 Complete Peptide 07:17 Basic Metabolic Panel LAB 09/07/24 Complete 07:17 Cbc With Differential LAB 09/07/24 Complete 07:17 Chest 1vw RAD 09/07/24 Taken 07:17 Lactic Acid LAB 09/07/24 Complete 07:17 Blood Cult JEREMIE 09/07/24 In Process 07:18 Methylprednisolone PHA 09/07/24 Complete Succ 125mg (Solu-Medr 07:30 Ipratropium/Albuterol PHA 09/07/24 Complete Neb (Duoneb) 07:30 Levofloxacin 750mg PHA 09/07/24 Complete Tab (Levaquin 750mg T 07:30 Ipratropium/Albuterol PHA 09/07/24 Complete Neb (Duoneb) 08:00 Ipratropium/Albuterol PHA 09/07/24 Complete Neb (Duoneb) 08:30 Furosemide 40mg Vial PHA 09/07/24 Complete (Lasix 40mg Vial) 09:00 Current Medications Medications (Trade) Dose Ordered Sig/Jo Route PRN Reason Start Time Stop Time Status Last Admin Dose Admin Albuterol (DUOneb) 1 UDVIAL ONCE ONCE IH 09/07/24 07:30 09/07/24 07:32 DC 09/07/24 07:50 Albuterol (DUOneb) 1 UDVIAL ONCE ONCE IH 09/07/24 08:00 09/07/24 08:01 DC 09/07/24 08:15 Albuterol (DUOneb) 1 UDVIAL ONCE ONCE IH 09/07/24 08:30 09/07/24 08:31 DC 09/07/24 08:55 Furosemide (LASix 40MG VIAL) 40 mg ONCE ONCE IV 09/07/24 09:00 09/07/24 09:01 DC Levofloxacin (LEvaquIN 750MG TAB) 750 mg ONCE ONCE PO 09/07/24 07:30 09/07/24 07:32 DC 09/07/24 07:51 Methylprednisolone Sodium Succinate (Solu-medROL 125MG) 125 mg ONCE ONCE IVP 09/07/24 07:30 09/07/24 07:32 DC 09/07/24 07:34 Vital Signs Date Time Temp Pulse Resp B/P (MAP) Pulse Ox O2 Delivery O2 Flow Rate FiO2 09/07/24 08:45 82 24 09/07/24 08:30 98.1 76 20 161/60 100 Nasal Cannula* 2 28 09/07/24 08:15 88 24 09/07/24 07:38 78 24 09/07/24 07:30 97.5 99 22 168/75 98 Nasal Cannula* 2 28 09/07/24 07:10 97.9 82 25 167/70 Room Air 0 DX & DISP Disposition: Inpatient Departure Impression: Primary Impression: Acute respiratory distress Additional Impression: COPD exacerbation Condition: Stable Referrals: SELF,REFERRAL (PCP) MICHAEL JOHNSON MD September 07, 2024 07:48
[2024-09-07] MEDS: IpraTROPium/alBUTERol SULFATE 3 ML SOLUTION IH ONE ×3 (07:50→08:55)
[2024-09-07] MEDS: levoFLOXacin 750 MG TABLET PO ONE (07:51)
[2024-09-07 07:57] LABS: BASOPHILS # (AUTO) 0.05 K/uL (0.00-0.20); BASOPHILS % (AUTO) 0.7 % (0.0-5.0); EOSINOPHILS # (AUTO) 0.14 K/uL (0.00-0.70); HEMATOCRIT 39.3 % (36-48); IMMATURE GRANULOCYTE ABSOLUTE 0.02 K/uL (0-1); LYMPHOCYTES # (AUTO) 2.4 K/uL (1.0-4.8); LYMPHOCYTES % (AUTO) 34.1 % (21.0-51.0); MEAN CORPUSCULAR HEMOGLOBIN 19.9 pg (27.0-33.0); MEAN CORPUSCULAR HGB CONC 27.5 g/dL (32.0-36.0); MEAN CORPUSCULAR VOLUME 72.4 fL (79-99); MONOCYTES # (AUTO) 0.8 K/uL (0.1-1.0); NEUTROPHILS # (AUTO) 3.7 K/uL (1.8-7.7); NEUTROPHILS % (AUTO) 51.9 % (40.0-77.0); PLATELET COUNT (AUTO) 471 K/uL (130-400); RED BLOOD CELL COUNT(AUTO) 5.43 MIL/uL (4.00-5.50)
[2024-09-07 08:15] LABS: CREATININE 0.5 mg/dL (0.5-1.0); POTASSIUM 3.3 mmol/L (3.5-5.1)
[2024-09-07 08:19] LABS: B-TYPE NATRIURETIC PEPTIDE 158 pg/mL (0-100)
--- NOTE | 2024-09-07 09:47 | HMCIMG ---
Exam Type: CHEST 1VW Clinical Information: SOB Comparison: None Findings: The lungs are clear of infiltrates. The heart is enlarged. Bony and soft tissue structures of the chest wall are unremarkable. IMPRESSION: Cardiomegaly. Clear lungs.
[2024-09-07] MEDS ORDERED: PoTASSium chloRIDE 20MEQ/100ML 100 ML IV PRN (10:00)
[2024-09-07] MEDS: THIAMINE HCL 100 MG/ML 2ML VIAL IVP SCH (10:00)
[2024-09-07] MEDS: furoSEMIDE 40MG VIAL IV ONE (10:00)
[2024-09-07 10:11] LABS: ALBUMIN 3.6 g/dL (3.5-5.0); BILIRUBIN,DIRECT 0.1 mg/dL (0.0-0.3); BILIRUBIN,TOTAL 0.3 mg/dL (0.2-1.0); MAGNESIUM 1.8 mg/dL (1.80-2.40); TOTAL PROTEIN, SERUM 6.8 g/dL (6.0-8.3)
[2024-09-07 10:12] LABS: ABG BASE EXCESS 2.6 mmol/L (-2.0-3.0); ABG OXYGEN SATURATION 92.2 % (94.0-98.0); ABG PCO2 54 mmHg (32-45); CARBON MONOXIDE 7.4 % (0.5-1.5); HHb 7.2; PO2, ARTERIAL BG 64.5 mmHg (83.0-108.0)
--- NOTE | 2024-09-07 10:21 | HP ---
[facility] HISTORY AND PHYSICAL Date of Service: September 07, 2024 Time of Service: 10:03 HISTORY OF PRESENT ILLNESS: Date of service: 09/07/2024 69-year-old female with underlying history of COPD, pulmonary hypertension, history of severe tricuspid regurgitation, tobacco use disorder who presented to the ER for further evaluation of progressive worsening of shortness of breath with associated wheezing and cough and phlegm production. Patient reports that she is homeless, and has trouble affording home medi cations. She is usually on 2 L of home O2 therapy. Reports feeling tired, fatigue and increasingly sleepy. She continues to smoke about a pack a day and reports having issues with generalized anxiety. She denies significant alcohol use. Reports having subjective fevers, chills and malaise Patient was recently hospitalized in [facility] on 09/05/2024 he was found to have acute on chronic COPD exacerbation patient left against medical advise on 09/05/2024 and she is coming back to the ER for progressively worsening symptoms. Patient at bedside appears frail and lethargic. We will obtain blood gas to rule out any significant hypercapnia. Patient will be admitted to cardiac telemetry floor and consultation with pulmonology will be requested. Patient will receive IV antibiotics, IV steroids, and we will see how patient progresses in the next 48-72 hours. Consultation case management will be requested as well. Patient is not a really good historian so I could not obtain a detailed history. History was also obtained from chart review. Presentation to the hospital, patient was noted to be afebrile and hypoxemic requiring 2 L of O2 supplementation by nasal cannula, blood pressure was noted to be at 167/70. Labs on presentation showed WBC count of 7000, hemoglobin 10.8, platelet count of 607889. BMP remarkable for sodium of 145, potassium 3.3, CO2 of 33 , creatinine 0.5, BNP of 158. Patient we will be admitted for further management of acute COPD exacerbation. We will obtain arterial blood gas to rule out any hypercapnic respiratory failure with acidosis. Patient will receive IV steroids and IV antibiotics. Patient did receive IV Lasix in the ER already. We will follow up with CT chest without contrast. REVIEW OF SYSTEMS CONSTITUTIONAL: Denies fevers, chills, or night sweats. No unintentional weight loss reported. NEUROLOGICAL: Denies headache, amaurosis fugax, motor weakness, sensory deficit, vertigo/spinning sensation, gait abnormalities, or tremors. ENT: No hearing loss, otalgia, otorrhea, rhinitis, rhinorrhea, hoarseness, or sore throat. CARDIOVASCULAR: Denies any exertional angina, dyspnea on exertion, orthopnea, paroxysmal nocturnal dyspnea, palpitations, life-threatening arrhythmias, claudication. PULMONARY: Labs, shortness of breath, wheezing, dyspnea on exertion, phlegm production SLEEP: Denies morning headaches, daytime somnolence or napping. Denies diffic ulty falling asleep, staying asleep, waking from sleep. Denies knowledge of snoring. GASTROINTESTINAL: Denies any type of dysphagia to either liquids or solids. Denies nausea, vomiting, pyrosis, early satiety, abdominal pain, diarrhea, constipation, or changes in stool consistency or caliber. Denies coffee-ground emesis, hematemesis, hematochezia, or melanotic stools. GENITOURINARY: Denies frequency, urgency, nocturia, hematuria or incontinence (Storage/Irritative symptoms.) Low urinary stream, straining to void, urinary intermittency or hesitancy, splitting of the voiding stream, terminal dribbling. ENDOCRINOLOGIC: Denies polyuria, polydipsia, polyphagia or heat/cold into lerances. HEMATOLOGIC: Denies thrombophilia/previous clots, or coagulopathy/bleeding disorders. ONCOLOGIC: Denies personal history of malignancy. DERMATOLOGIC: Denies rashes or pruritus. PSYCHIATRIC: Denies any suicidal or homicidal ideation. Denies hallucinations. PAST MEDICAL HISTORY: History of COPD with hypoxemic respiratory failure on home oxygen, history of pulmonary hypertension, history of severe tricuspid regurgitation, tobacco use disorder, hypertension PAST SURGICAL HISTORY: Per chart review, patient has been history of tubal ligation PAST SOCIAL HISTORY: Smokes about a pack a day for long time, denies significant alcohol use, denies illicit drug use FAMILY HISTORY: Unknown Allergies: No known drug allergies Home medications: No medications available at bedside to be reconciled, d iscussed with patient to try to see if we can obtain list of home medications Coded Allergies: No Known Drug Allergies (Unverified Allergy, Unknown, 02/17/21) PHYSICAL EXAM GENERAL APPEARANCE: The patient is awake, alert, and oriented, in no acute cardiopulmonary distress. NEUROLOGICAL: Cranial nerves II-XII grossly intact. Motor is 5/5 in bilateral upper and lower extremities proximal to distal. No sensory deficits. HEENT: Face is symmetric. Pupils are equal and reactive. Extraocular movements are intact. NECK: Supple. No JVD. No thyromegaly. No submental, submandibular, pre- /postauricular, occipital or supraclavicular lymphadenopathy. CHEST: Normal chest expansion. No Telemetry. LUNGS: Wheezing noted bilaterally with rhonchorous breath sounds that clears with cough CARDIOVASCULAR: Regular. S1 and S2 normal. No appreciable rubs, murmurs or gallops. ABDOMEN: Soft, nontender, and nondistended. There is no rebound, voluntary guarding, or rigidity. : Deferred. No Estrada. EXTREMITIES: Non-edematous and not cyanotic. No clubbing. Good capillary refill. SKIN: No skin breakdown. Vital Sign (Last 24 Hours) 09/07/24 09/07/24 08:30 08:45 Temp 98.1 Pulse 82 Resp 24 B/P (MAP) 161/60 Pulse Ox 100 O2 Delivery Nasal Cannula* O2 Flow Rate 2 FiO2 28 LABS: Laboratory: Test 09/07/24 07:47 Range/Units White Blood Count 7.0 4.8-10.8 K/uL Red Blood Count 5.43 4.00-5.50 MIL/uL Hemoglobin 10.8 L 12.0-16.0 g/dL Hematocrit 39.3 # 36-48 % Mean Corpuscular Volume 72.4 L 79-99 fL Mean Corpuscular Hemoglobin 19.9 L 27.0-33.0 pg Mean Corpuscular Hemoglobin Concent 27.5 L 32.0-36.0 g/dL Red Cell Distribution Width 22.0 H 11.0-15.5 % Platelet Count 471 H 130-400 K/uL Mean Platelet Volume 8.9 7.5-10.5 fL Immature Granulocyte % (Auto) 0.3 0-1 % Neutrophils (%) (Auto) 51.9 40.0-77.0 % Lymphocytes (%) (Auto) 34.1 21.0-51.0 % Monocytes (%) (Auto) 11.0 3.0-13.0 % Eosinophils (%) (Auto) 2.0 0.0-8.0 % Basophils (%) (Auto) 0.7 0.0-5.0 % Neutrophils # (Auto) 3.7 1.8-7.7 K/uL Lymphocytes # (Auto) 2.4 1.0-4.8 K/uL Monocytes # (Auto) 0.8 0.1-1.0 K/uL Eosinophils # (Auto) 0.14 0.00-0.70 K/uL Basophils # (Auto) 0.05 0.00-0.20 K/uL Absolute Immature Granulocyte (auto 0.02 0-1 K/uL Nucleated Red Blood Cells 0.0 0.0-0.19 % Sodium Level 145 136-145 mmol/L Potassium Level 3.3 L 3.5-5.1 mmol/L Chloride Level 105 101-111 mmol/L Carbon Dioxide Level 33 H 21-32 mmol/L Blood Urea Nitrogen 14 7-18 mg/dL Creatinine 0.5 0.5-1.0 mg/dL Glomerular Filtration Rate Calc 100 >90 mL/min Random Glucose 103 70-105 mg/dL Lactic Acid Level 1.4 0.8-2.5 mmol/L Total Calcium 8.7 8.5-10.1 mg/dL Troponin I High Sensitivity 26 4-50 ng/L B-Type Natriuretic Peptide 158 H 0-100 pg/mL Current Medications Medications (Trade) Dose Ordered Sig/Jo Route PRN Reason Start Time Stop Time Status Last Admin Dose Admin Acetaminophen (TYLenol 325MG TAB) 650 mg Q6H PRN PO MILD PAIN (1-3) 09/07/24 10:00 10/07/24 09:59 Albuterol (DUOneb) 1 udvial [id number] IH 09/07/24 12:00 10/07/24 11:59 Budesonide (Pulmicort 0.5 Mg/2ml) 0.5 mg BIDRESP IH 09/07/24 10:00 10/07/24 09:59 Cefepime HCl (MAXipime 1 GM vial) 1 gm Q8H IVPB 09/07/24 10:00 09/17/24 09:59 Doxycycline Hyclate (Doxycycline Hyclate) 100 mg BID PO 09/07/24 21:00 09/17/24 20:59 Enoxaparin Sodium (Lovenox) 30 mg DAILY SQ 09/08/24 09:00 10/08/24 08:59 Magnesium Sulfate 50 ml @ 0 mls/hr PROTOCOL IV 09/07/24 10:00 10/07/24 09:59 Methylprednisolone Sodium Succinate (Solu-medROL 40MG) 40 mg Q8H IVP 09/07/24 12:00 10/07/24 11:59 Multivitamins Therapeutic (Multivitamin Tablet) 1 tab DAILY PO 09/08/24 09:00 10/08/24 08:59 Pantoprazole Sodium (PROTonix 40MG INJ) 40 mg Q24H IVP 09/07/24 10:00 10/07/24 09:59 Potassium Chloride 100 ml @ 100 mls/hr AD PRN IV POTASSIUM PROTOCOL 09/07/24 10:00 10/07/24 09:59 Potassium Chloride (K-Dur/Klor-Con 20meq) 20 meq AD PRN PO POTASSIUM PROTOCOL 09/07/24 10:00 10/07/24 09:59 Potassium Chloride (KCl 10% Elixir 20meq/15ml) 20 meq AD PRN PO POTASSIUM PROTOCOL 09/07/24 10:00 10/07/24 09:59 Thiamine HCl (Vitamin B-1) 100 mg Q24H IVP 09/07/24 10:00 10/07/24 09:59 09/07/24 10:00 100 MG DIAGNOSTICS / RADIOLOGY: SERVICE 6 REASON: SOB ORDERING PHYSICIAN: MICHAEL JOHNSON MD PROCEDURE: CXR1VW - CHEST 1VW Exam Type: CHEST 1VW Clinical Information: SOB Comparison: None Findings: The lungs are clear of infiltrates. The heart is enlarged. Bony and soft tissue structures of the chest wall are unremarkable. IMPRESSION: Cardiomegaly. Clear lungs. DICTATED BY: ZACKERY SEN MD DATE: 09/07/24943 ELECTRONICALLY SIGNED BY: ZACKERY SEN MD DATE: 09/07/24946 ASSESSMENT: Acute on Chronic COPD exacerbation, POA Acute on chronic hypoxemic respiratory failure, POA History of chronic hypercapnic respiratory failure secondary to underlying COPD, POA Medical noncompliance, POA History of continued tobacco use disorder, POA Pulmonary hypertension likely secondary to advanced COPD, POA Underlying history of severe tricuspid regurgitation, POA History of hypertension, POA Anemia, POA Hypokalemia, POA Frailty, POA PLAN: Patient to cardiac telemetry floor Continue with supplemental O2 therapy to maintain oxygen saturation greater than 89% We will start patient on Solu-Medrol 40 mg q.8 hours We will start patient on scheduled Pulmicort and nebulizers Broad-spectrum antibiotics with IV cefepime/doxycycline, respiratory cultures will be obtained Consultation with pulmonology will be requested We will follow up CT chest without contrast, BNP is minimally elevated secondary to underlying severe tricuspid regurgitation, patient on 2D echocardiogram for 09/05/2024 had PASP of 62 with right ventricular dilation and concerns for pulmonary hypertension We will try to obtain home medication list once available Case management consultation will be requested Monitor closely for respiratory acidosis Electrolytes will be repleted per protocol All labs will be repeated in the morning Patient will be placed on a nicotine patch, discussed with patient about quitting smoking, patient stated that she would think about it Date of service: 09/07/2024 Plan of care was discussed with patient at bedside, Philipp Jeter MD Advanced Care Planning: Which of the following were discussed: Hospice care: Yes __ No _X_ Therapeutic options: Yes _X_ No __ Advance directives: Yes _X_ No __ Other discussions: Discussed with who?: Patient Voluntary nature of this service was explained to the patient? Yes _x_ No __ Amount of time spent: 20 minutes Reviewed by Physician?: Yes _x_ No __ (if this service was performed by NPP) PHILIPP JETER MD September 07, 2024 10:21
[2024-09-07] MEDS ORDERED: hydrALAZine 20MG/ML VIAL IV PRN (10:30)
[2024-09-07] MEDS: IpraTROPium/alBUTERol SULFATE 3 ML SOLUTION IH SCH (11:24)
[2024-09-07] MEDS: BUDESONIDE 0.5 MG/2 ML INH IH SCH (11:24)
[2024-09-07] MEDS: SODIUM CHLORIDE 3% FOR INHALATION 4 ML/AMP VIAL.NEB IH ONE ×3 (11:24→23:31)
[2024-09-07] MEDS: ceFEPime HCL 1 GM VIAL IVPB SCH (12:08)
[2024-09-07] MEDS: PANTOPrazole 40 MG/VIAL IVP SCH (12:08)
[2024-09-07] MEDS: PoTASSium chloRIDE 20MEQ ER 20 MEQ ERTAB PO PRN (12:09)
--- NOTE | 2024-09-07 12:57 | NUR ---
Doris STREETCAR DISPATCHER for [employer] eas made aware of patient
--- NOTE | 2024-09-07 13:18 | CONS ---
[facility] CONSULTATION NOTE Date Patient Seen: September 07, 2024 Time of Visit: 13:18 Supervising Physician: Christian Yin MD Reason for Consultation: SOB, Primary Care Physician: Self Referral Outpatient Specialists: [ ] Inpatient Consults: B[facility] Attending: Philipp Jeter MD PROBLEM LIST: Chronic hypoxemic and hypercapnic respiratory failure, POA on O2 Suspected acute on chronic diastolic heart failure with EF of 55-60% Suspected severe pulmonary hypertension with RVSP of 62 mm Hg on 2D echo 09/05/24 COPD exacerbation, POA Emphysema Leukocytosis Thrombocytosis Hypokalemia Heavy tobacco abuse Homelessness Glucosuria Cardiomegaly History of severe tricuspid regurgitation Cachexia Plan Summary: Continue Solu-Medrol 40 mg q8 hrs and wean as tolerated ABX to cover for healthcare associated pneumonia empirically per primary team Given exposure of smoking for many years, patient has a developed COPD with exacerbation. Patient to follow up as outpatient at pulmonary clinic in two weeks for PFTs, we will continue with nebulizer treatments with Duoneb, Pulmicort, steroids. Singulair 10 mg daily Follow respiratory cultures Maintain O2 sats above 88% Gi PPX with protonix due to steroids smoking cessation Influenza a and B negative, COVID-19 negative, Pending CT chest reading HPI: This is a 69-year-old female With a past medical history of CHF, COPD, smoker, alcohol use, severe tricuspid regurgitation, type 2 diabetes mellitus and hypertension who [place] [facility] [place] breath [place]. Patient was admitted by [facility] team and we are consulted for COPD and shortness of breath. On assessment of patient she is awake alert and oriented x3 currently on 3 L via nasal cannula saturating 96% in NAD. She reports she startyed having a panic attack that triggered her SOB when she was told by rico aguir[facility] from [facility] in [place] that she will not be able to stay there. She reports she is homeless and panicked because she doesnt want to stay in the streets. She admits to smoking many cigarettes after that because she stressed out and that is how sh rupert with it. She then started with worsening of SOB. She is hemodynamically stable and afebrile heart rate in the 80s. CBD showed an H&H of 10.8/39.3 platelet count of 471 K. chemistries sodium 145 potassium of 3.3 chloride of 105 and carbon dioxide of 33 with a procalcitonin less than 0.05. Ammonia 18 initial troponin of liver enzymes within normal limit. And albumin of 3.6. ABG showed a pH of 7.35 pCO2 of 54 PO2 of 64.5 and bicarb 29 consistent with chronic hypoxic and hypercapnic respiratory failure when compare to previous ABG's. Chest XR shows cardiomegaly and clear lungs. PAST MEDICAL HX: see above PAST SURGICAL HX: noncontributory SOCIAL HISTORY: No tobacco, ETOH, or illicit drug use Coded Allergies: No Known Drug Allergies (Unverified Allergy, Unknown, 02/17/21) REVIEW OF SYSTEMS: Const: [no fever, fatigue, or weight changes] Eyes:[ no recent vision problems] ENT: [No congestion, ear pain, or sore throat] C/V: [no chest pain, palpitations or edema] Resp: [yes to occasional cough and sob GI: [No abdominal pain, nausea, vomiting, constipation, or diarrhea] : [No incontinence of or dyuria] M/S: [No joint or pain swelling] Skin: [No rash] Neuro: [no headache, focal numbness, or weakness, dizziness or seizures] Psych: [no depression or anxiety] Heme: [no abnormal bruising or bleeding] Lymph: [no swollen glands] PHYSICAL EXAM: GENERAL: alert, weak, awake oriented x 3 HEENT: EOMI, Sclera non icteric, moist mucosa NECK: Supple, no JVD, trachea midline LUNGS: Diminished to all lobes. No wheezes HEART: Regular rate and rhythm. Normal S1 and S2, without murmurs ABD: Abdomen soft, nontender. Bowel sounds present EXT: No clubbing cyanosis or edema NEURO: Alert and oriented to person, follows commands Vital Signs (last 8hr) Date Time Temp Pulse Resp B/P (MAP) Pulse Ox O2 Delivery O2 Flow Rate FiO2 09/07/24 11:29 92 18 N/Cannula Low lpm 3.0 09/07/24 11:28 92 18 09/07/24 08:45 82 24 09/07/24 08:30 98.1 76 20 161/60 100 Nasal Cannula* 2 28 09/07/24 08:15 88 24 09/07/24 07:38 78 24 09/07/24 07:30 97.5 99 22 168/75 98 Nasal Cannula* 2 28 09/07/24 07:10 97.9 82 25 167/70 Room Air 0 LABS: Hematology Labs: Test 09/07/24 07:47 Range/Units White Blood Count 7.0 4.8-10.8 K/uL Red Blood Count 5.43 4.00-5.50 MIL/uL Hemoglobin 10.8 L 12.0-16.0 g/dL Hematocrit 39.3 # 36-48 % Mean Corpuscular Volume 72.4 L 79-99 fL Mean Corpuscular Hemoglobin 19.9 L 27.0-33.0 pg Mean Corpuscular Hemoglobin Concent 27.5 L 32.0-36.0 g/dL Red Cell Distribution Width 22.0 H 11.0-15.5 % Platelet Count 471 H 130-400 K/uL Mean Platelet Volume 8.9 7.5-10.5 fL Immature Granulocyte % (Auto) 0.3 0-1 % Neutrophils (%) (Auto) 51.9 40.0-77.0 % Lymphocytes (%) (Auto) 34.1 21.0-51.0 % Monocytes (%) (Auto) 11.0 3.0-13.0 % Eosinophils (%) (Auto) 2.0 0.0-8.0 % Basophils (%) (Auto) 0.7 0.0-5.0 % Neutrophils # (Auto) 3.7 1.8-7.7 K/uL Lymphocytes # (Auto) 2.4 1.0-4.8 K/uL Monocytes # (Auto) 0.8 0.1-1.0 K/uL Eosinophils # (Auto) 0.14 0.00-0.70 K/uL Basophils # (Auto) 0.05 0.00-0.20 K/uL Absolute Immature Granulocyte (auto 0.02 0-1 K/uL Nucleated Red Blood Cells 0.0 0.0-0.19 % Erythrocyte Sedimentation Rate 1 0-30 MM/HR Chemistry Labs: Test 09/07/24 10:01 09/07/24 07:47 Range/Units Ammonia 18 11-32 umol/L Sodium Level 145 136-145 mmol/L Potassium Level 3.3 L 3.5-5.1 mmol/L Chloride Level 105 101-111 mmol/L Carbon Dioxide Level 33 H 21-32 mmol/L Blood Urea Nitrogen 14 7-18 mg/dL Creatinine 0.5 0.5-1.0 mg/dL Glomerular Filtration Rate Calc 100 >90 mL/min Random Glucose 103 70-105 mg/dL Lactic Acid Level 1.4 0.8-2.5 mmol/L Total Calcium 8.7 8.5-10.1 mg/dL Magnesium Level 1.80 1.80-2.40 mg/dL Total Bilirubin 0.3 0.2-1.0 mg/dL Direct Bilirubin 0.1 0.0-0.3 mg/dL Aspartate Amino Transf (AST/SGOT) 19 10-37 U/L Alanine Aminotransferase (ALT/SGPT) 22 12-78 U/L Alkaline Phosphatase 115 50-136 U/L Lactate Dehydrogenase 177 81-234 U/L Troponin I High Sensitivity 26 4-50 ng/L C-Reactive Protein, Quantitative 1.80 0.5-3.0 mg/L B-Type Natriuretic Peptide 158 H 0-100 pg/mL Total Protein 6.8 6.0-8.3 g/dL Albumin 3.6 3.5-5.0 g/dL Procalcitonin < 0.05 L 0.05-0.5 ng/mL DIAGNOSTICS / RADIOLOGY RESULTS: [ ] IMAGING REPORT Signed PATIENT: JONATHON BOURNE MR#: [id number] : 1955 SEX: F AGE: 69 LOCATION: [facility] ORDER 8 STATUS: [facility] REPORT#: [id number] SERVICE 6 REASON: SOB ORDERING PHYSICIAN: MICHAEL JOHNSON MD PROCEDURE: CXR1VW - CHEST 1VW Exam Type: CHEST 1VW Clinical Information: SOB Comparison: None Findings: The lungs are clear of infiltrates. The heart is enlarged. Bony and soft tissue structures of the chest wall are unremarkable. IMPRESSION: Cardiomegaly. Clear lungs. DICTATED BY: ZACKERY SEN MD DATE: 09/07/24943 ELECTRONICALLY SIGNED BY: ZACKERY SEN MD DATE: 09/07/24946 PLAN Continue Solu-Medrol 40 mg q8 hrs and wean as tolerated ABX to cover for healthcare associated pneumonia empirically per primary team Given exposure of smoking for many years, patient has a developed COPD with exacerbation. Patient to follow up as outpatient at pulmonary clinic in two weeks for PFTs, we will continue with nebulizer treatments with Duoneb, Pulmicort, steroids. Singulair 10 mg daily Follow respiratory cultures Maintain O2 sats above 88% Gi PPX with protonix due to steroids smoking cessation Influenza a and B negative, COVID-19 negative, Pending CT chest reading We will need to continue to monitor patient closely, give supplemental oxygen as tolerated to keep SaO2 greater than 88%, Nebulizer Duoneb, Pulmicort, Steroids, LVEP: incentive symmetry, Diuretic if appropriate, Antileukotriene agents: montelukast. Antibiotics to cover CAp is appropriate. We will follow along with you. NEURO: Minimize central acting medications as possible. Maintain fall precautions, adequate lighting during the day PULMONARY: Supplemental 02 as needed. Maintain aspiration precautions at all times CARDIOVASCULAR: Follow hemodynamics. Vital signs per facility protocol GI & NUTRITION: Continue with nutritional support. Continue stool softeners and laxatives as needed. KIDNEYS & ELECTROLYTES: Strict monitoring of intake, output and overall fluid balance. Avoid nephrotoxic medications to the extent possible. Medications to be dosed according to renal function. Monitor electrolytes and replace as needed ENDOCRINE: Maintain blood glucose between 100-180 at all times. Hypoglycemia protocol in place INFECTIOUS DISEASE: Trend temperature, WBC and procalcitonin level Follow cultures, deescalate antibiotics as soon as possible. Panculture if new onset fever ONCOLOGY/HEMATOLOGY/COAGULATION: Monitor for s/s of bleeding Monitor hemoglobin, coagulation studies as needed SKIN: Pressure ulcer prevention per facility protocol Specialty mattress ORTHO/REHAB: Continue PT/OT Prophylaxis: Continue GI and DVT prophylaxis Code Status: Full Resuscitation Disposition: TBD Other: Total patient care time exceeds 35 minutes excluding all procedures. ATTESTATION BY PHYSICIAN I reviewed the documentation, medical decision making, and treatment plan as noted by the mid-level provider above. I agree with the findings and plan of care. Christian Yin MD, NELLY J ARNP September 07, 2024 13:18
[2024-09-07] MEDS: Solu-medROL 40MG VIAL IVP SCH (15:25)
--- NOTE | 2024-09-07 15:31 | EKG ---
[facility] Test Date: 2024-09-07 Test Time: 07:23:44 Pat Name: JONATHON BOURNE Department: [facility]HIP Room: 419 Gender: F Telemetry Technician: [id number] : 1955 Requested By: MICHAEL JOHNSON Order Number: [id number] Reading MD: Yasmani Wilhelm Measurements Intervals [place] Rate: 85 P: 82 KS: 157 QRS: 62 QRSD: 96 T: 66 QT: 392 QTc: 466 Interpretive Statements Sinus rhythm Atrial premature complex Left atrial enlargement Probable left ventricular hypertrophy Compared to ECG 01/20/2024 16:18:18 Atrial premature complex(es) now present Atrial abnormality now present Electronically Signed On 09-08-2024 13:13:38 CDT by Yasmani Wilhelm Please click the below link to view image of tracing.
[2024-09-07 16:08] LABS: ADD UA MICROSCOPIC YES; APPEARANCE,URINE CLEAR (CLEAR); BILIRUBIN,URINE NEGATIVE (NEGATIVE); COLOR,URINE LIGHT-YELLOW (YELLOW); GLUCOSE, URINE (UA) 50 mg/dL (NEGATIVE); KETONES,URINE NEGATIVE (NEGATIVE); LEUKOCYTE ESTERASE ,URINE NEGATIVE Leu/uL (NEGATIVE); NITRATE,URINE NEGATIVE (NEGATIVE); OCCULT BLOOD,URINE NEGATIVE (NEGATIVE); PROTEIN,URINE NEGATIVE (NEGATIVE); UROBILINOGEN,URINE 0.2 mg/dL (0.2-1.0)
[2024-09-07 16:11] LABS: MUCUS,URINE RARE LPF (None Seen); SQUAMOUS EPITHELIAL CELL,UR RARE /HPF (0-2); WBC,URINE 0-1 /HPF (0-1)
[2024-09-07 18:29] LABS: COVID19 (SARS ANTIGEN RAPID) PRESUMPTIVE NEGATIVE (NEGATIVE)
[2024-09-07 18:30] LABS: INFLUENZA TYPE A Negative For Type A (NEGATIVE); INFLUENZA TYPE B Negative For Type B (NEGATIVE)
[2024-09-07] MEDS: DOXYCYCLINE HYCLATE 100 MG TABLET PO SCH (20:24)
[2024-09-07] MEDS: acetaMINOPHEN 325 MG TAB PO PRN (20:34)
[2024-09-08] VITALS (15 sets, daily range): BP systolic 140–167; BP diastolic 62–70; PULSE 89–113; RESP 18–22; TEMP 97.7–98.9; O2SAT 88–97
--- NOTE | 2024-09-08 04:13 | NUR ---
PT REFUSING LABS, DREDGE ENGINEER WILL TRY AGAIN AT 7AM.
[2024-09-08 07:07] LABS: HEMATOCRIT 35.6 % (36-48); IMMATURE GRANULOCYTE ABSOLUTE 0.03 K/uL (0-1); LYMPHOCYTES # (AUTO) 0.5 K/uL (1.0-4.8); LYMPHOCYTES % (AUTO) 8.1 % (21.0-51.0); MEAN CORPUSCULAR HGB CONC 27.8 g/dL (32.0-36.0); MEAN CORPUSCULAR VOLUME 72.1 fL (79-99); MONOCYTES # (AUTO) 0.4 K/uL (0.1-1.0); MONOCYTES % (AUTO) 6.2 % (3.0-13.0); NEUTROPHILS # (AUTO) 5.2 K/uL (1.8-7.7); NEUTROPHILS % (AUTO) 85.2 % (40.0-77.0); PLATELET COUNT (AUTO) 453 K/uL (130-400); RED BLOOD CELL COUNT(AUTO) 4.94 MIL/uL (4.00-5.50); RED CELL DISTRIBUTION WIDTH 21.9 % (11.0-15.5); WHITE BLOOD COUNT (AUTO) 6.2 K/uL (4.8-10.8)
[2024-09-08 07:23] LABS: ALBUMIN 3.1 g/dL (3.5-5.0); BILIRUBIN,TOTAL 0.2 mg/dL (0.2-1.0); CREATININE 0.5 mg/dL (0.5-1.0); MAGNESIUM 1.8 mg/dL (1.80-2.40); POTASSIUM 4.6 mmol/L (3.5-5.1); TOTAL PROTEIN, SERUM 6.2 g/dL (6.0-8.3)
[2024-09-08] MEDS: MULTIVITAMIN TABLET PO SCH (09:15)
[2024-09-08] MEDS: ENOXAPARIN SODIUM 30 MG/0.3 ML SQ SCH (09:15)
[2024-09-08] MEDS: monteLUKAST sodIUM 10 MG TAB PO SCH (09:16)
[2024-09-08] MEDS: amLODIPine 5 MG TAB PO SCH (09:16)
--- NOTE | 2024-09-08 10:04 | PN ---
[facility] PROGRESS NOTE Date of Service: September 08, 2024 Time of Service: 10:01 SUBJECTIVE: 09/08 patient admitted due to chronic hypoxemic and hypercapnic respiratory failure, with COPD exacerbation and suspected acute on chronic diastolic heart failure. The patient has been seen and examined earlier this morning during my rounding, case discussed with the RN, no acute events overnight, during my visit the patient is comfortably in bed, remains on 2 L via nasal cannula, saturating 98%, BP 140/67, heart rate of 90, afebrile, admits mild dry nonproductive cough, she feels less short of breath compared to time of admission, she is getting IV antibiotics. Continue the patient on Solu-Medrol IV, wean as tolerated, continue bronchodilators per RT, continue to follow Pulmonary input and recommendation, CT scan of the chest pending. REVIEW OF SYSTEMS CONSTITUTIONAL: Denies fevers, chills, or night sweats. No unintentional weight loss reported. NEUROLOGICAL: Denies headache, amaurosis fugax, motor weakness, sensory deficit, vertigo/spinning sensation, gait abnormalities, or tremors. ENT: No hearing loss, otalgia, otorrhea, rhinitis, rhinorrhea, hoarseness, or sore throat. CARDIOVASCULAR: Denies any exertional angina, dyspnea on exertion, orthopnea, paroxysmal nocturnal dyspnea, palpitations, life-threatening arrhythmias, claudication. PULMONARY: Labs, shortness of breath, wheezing, dyspnea on exertion, phlegm production SLEEP: Denies morning headaches, daytime somnolence or napping. Denies difficulty falling asleep, staying asleep, waking from sleep. Denies knowledge of snoring. GASTROINTESTINAL: Denies any type of dysphagia to either liquids or solids. Denies nausea, vomiting, pyrosis, early satiety, abdominal pain, diarrhea, constipation, or changes in stool consistency or caliber. Denies coffee-ground emesis, hematemesis, hematochezia, or melanotic stools. GENITOURINARY: Denies frequency, urgency, nocturia, hematuria or incontinence (Storage/Irritative symptoms.) Low urinary stream, straining to void, urinary intermittency or hesitancy, splitting of the voiding stream, terminal dribbling. ENDOCRINOLOGIC: Denies polyuria, polydipsia, polyphagia or heat/cold intolerances. HEMATOLOGIC: Denies thrombophilia/previous clots, or coagulopathy/bleeding disorders. ONCOLOGIC: Denies personal history of malignancy. DERMATOLOGIC: Denies rashes or pruritus. PSYCHIATRIC: Denies any suicidal or homicidal ideation. Denies hallucinations. PHYSICAL EXAM GENERAL APPEARANCE: The patient is awake, alert, and oriented, in no acute cardiopulmonary distress. NEUROLOGICAL: Cranial nerves II-XII grossly intact. Motor is 5/5 in bilateral upper and lower extremities proximal to distal. No sensory deficits. HEENT: Face is symmetric. Pupils are equal and reactive. Extraocular movements are intact. NECK: Supple. No JVD. No thyromegaly. No submental, submandibular, pre-/postauricular, occipital or supraclavicular lymphadenopathy. CHEST: Normal chest expansion. No Telemetry. LUNGS: Wheezing noted bilaterally with rhonchorous breath sounds that clears with cough CARDIOVASCULAR: Regular. S1 and S2 normal. No appreciable rubs, murmurs or gallops. ABDOMEN: Soft, nontender, and nondistended. There is no rebound, voluntary guarding, or rigidity. : Deferred. No Estrada. EXTREMITIES: Non-edematous and not cyanotic. No clubbing. Good capillary refill. SKIN: No skin breakdown. Vital Signs (last 8hr) Date Time Temp Pulse Resp B/P (MAP) Pulse Ox O2 Delivery O2 Flow Rate FiO2 09/08/24 07:51 97.9 108 18 140/67 97 Room Air 21 09/08/24 06:37 90 20 N/Cannula Low lpm 2.5 30 09/08/24 06:34 90 20 09/08/24 04:00 97.7 100 20 158/70 90 Room Air LABS: Laboratory: Test 09/08/24 07:00 09/07/24 17:30 09/07/24 15:30 09/07/24 10:10 Range/Units White Blood Count 6.2 4.8-10.8 K/uL Red Blood Count 4.94 4.00-5.50 MIL/uL Hemoglobin 9.9 L 12.0-16.0 g/dL Hematocrit 35.6 L 36-48 % Mean Corpuscular Volume 72.1 L 79-99 fL Mean Corpuscular Hemoglobin 20.0 L 27.0-33.0 pg Mean Corpuscular Hemoglobin Concent 27.8 L 32.0-36.0 g/dL Red Cell Distribution Width 21.9 H 11.0-15.5 % Platelet Count 453 H 130-400 K/uL Mean Platelet Volume 9.7 7.5-10.5 fL Immature Granulocyte % (Auto) 0.5 0-1 % Neutrophils (%) (Auto) 85.2 H 40.0-77.0 % Lymphocytes (%) (Auto) 8.1 L 21.0-51.0 % Monocytes (%) (Auto) 6.2 3.0-13.0 % Eosinophils (%) (Auto) 0.0 0.0-8.0 % Basophils (%) (Auto) 0.0 0.0-5.0 % Neutrophils # (Auto) 5.2 1.8-7.7 K/uL Lymphocytes # (Auto) 0.5 L 1.0-4.8 K/uL Monocytes # (Auto) 0.4 0.1-1.0 K/uL Eosinophils # (Auto) 0.00 0.00-0.70 K/uL Basophils # (Auto) 0.00 0.00-0.20 K/uL Absolute Immature Granulocyte (auto 0.03 0-1 K/uL Nucleated Red Blood Cells 0.0 0.0-0.19 % White Cell Morphology Comment See comments Sodium Level 142 136-145 mmol/L Potassium Level 4.6 3.5-5.1 mmol/L Chloride Level 106 101-111 mmol/L Carbon Dioxide Level 31 21-32 mmol/L Blood Urea Nitrogen 26 H 7-18 mg/dL Creatinine 0.5 0.5-1.0 mg/dL Glomerular Filtration Rate Calc 100 >90 mL/min Random Glucose 164 #H 70-105 mg/dL Total Calcium 8.9 8.5-10.1 mg/dL Magnesium Level 1.80 1.80-2.40 mg/dL Total Bilirubin 0.2 # 0.2-1.0 mg/dL Aspartate Amino Transf (AST/SGOT) 11 10-37 U/L Alanine Aminotransferase (ALT/SGPT) 17 # 12-78 U/L Alkaline Phosphatase 98 50-136 U/L Total Protein 6.2 6.0-8.3 g/dL Albumin 3.1 L 3.5-5.0 g/dL Influenza Type A Antigen Negative For Type A NEGATIVE Influenza Type B Antigen Negative For Type B NEGATIVE SARS-CoV-2 Antigen (Rapid) PRESUMPTIVE NEGATIVE NEGATIVE Urine Color LIGHT-YELLOW YELLOW Urine Appearance CLEAR CLEAR Urine pH 5.0 5.0-8.0 Urine Specific [place] 1.014 1.001-1.031 Urine Protein NEGATIVE NEGATIVE mg/dL Urine Glucose (UA) 50 H NEGATIVE mg/dL Urine Ketones NEGATIVE NEGATIVE mg/dL Urine Occult Blood NEGATIVE NEGATIVE Urine Nitrate NEGATIVE NEGATIVE Urine Bilirubin NEGATIVE NEGATIVE mg/dL Urine Urobilinogen 0.2 0.2-1.0 mg/dL Urine Leukocyte Esterase NEGATIVE NEGATIVE [place]/uL Urine RBC None 0-1 /HPF Urine WBC 0-1 0-1 /HPF Urine Squamous Epithelial Cells RARE 0-2 /HPF Urine Bacteria None None Seen /HPF Blood Gas Specimen Type Arterial Arterial Blood pH 7.350 7.350-7.450 Arterial Blood Partial Pressure CO2 54 H 32-45 mmHg Arterial Blood Partial Pressure O2 64.5 L 83.0-108.0 mmHg Arterial Blood HCO3 29.0 H 21.0-28.0 mmol/L Arterial Blood Oxygen Saturation 92.2 L 94.0-98.0 % Arterial Blood Base Excess 2.6 -2.0-3.0 mmol/L Hemoglobin (Blood Gas) 10.8 L 12.0-16.0 g/dL Sodium (Blood Gas) 140 136-145 MMOL/L Bedside Potassium (Blood Gas) 3.3 L 3.4-4.5 MMOL/L Bedside Chloride (Blood Gas) 104 98-107 MMOL/L Bedside Glucose (Blood Gas) 132 H 65-95 MG/DL Bedside Ionized Calcium (Blood Gas) 1.15 1.15-1.33 MMOL/L Bedside Lactic Acid (Blood Gas) 0.69 0.36-0.75 MMOL/L Blood Gas Temperature 37.0 35.5-37.0 CELSIUS Blood Gas Flow-by 3.00 0.00-15.00 L/min FiO2 32.0 % Blood Gas Specimen Comment RR, Test 09/07/24 10:01 09/07/24 07:47 Range/Units Ammonia 18 11-32 umol/L Erythrocyte Sedimentation Rate 1 0-30 MM/HR Lactic Acid Level 1.4 0.8-2.5 mmol/L Direct Bilirubin 0.1 0.0-0.3 mg/dL Lactate Dehydrogenase 177 81-234 U/L Troponin I High Sensitivity 26 4-50 ng/L C-Reactive Protein, Quantitative 1.80 0.5-3.0 mg/L B-Type Natriuretic Peptide 158 H 0-100 pg/mL Procalcitonin < 0.05 L 0.05-0.5 ng/mL Current Medications Medications (Trade) Dose Ordered Sig/Jo Route PRN Reason Start Time Stop Time Status Last Admin Dose Admin Acetaminophen (TYLenol 325MG TAB) 650 mg Q6H PRN PO MILD PAIN (1-3) 09/07/24 10:00 10/07/24 09:59 09/08/24 09:27 650 MG Albuterol (DUOneb) 1 udvial [id number] IH 09/07/24 12:00 10/07/24 11:59 09/08/24 06:34 1 UDVIAL Amlodipine Besylate (NorvASC 5MG TAB) 5 mg DAILY PO 09/08/24 09:00 10/08/24 08:59 09/08/24 09:16 5 MG Budesonide (Pulmicort 0.5 Mg/2ml) 0.5 mg BIDRESP IH 09/07/24 10:00 10/07/24 09:59 09/08/24 06:34 0.5 MG Cefepime HCl (MAXipime 1 GM vial) 1 gm Q8H IVPB 09/07/24 10:00 09/17/24 09:59 09/08/24 09:10 1 GM Doxycycline Hyclate (Doxycycline Hyclate) 100 mg BID PO 09/07/24 21:00 09/17/24 20:59 09/08/24 09:16 100 MG Enoxaparin Sodium (Lovenox) 30 mg DAILY SQ 09/08/24 09:00 10/08/24 08:59 09/08/24 09:15 30 MG Guaifenesin/ Dextromethorphan (RobiTUSSin DM 200/20MG 10ML) 10 ml Q6H PRN PO COUGH 09/07/24 10:30 10/07/24 10:29 Hydralazine HCl (APRESOLine 20MG INJ) 5 mg Q6H PRN IV ADMINISTER FOR SBP > 160 09/07/24 10:30 10/07/24 10:29 Magnesium Sulfate 50 ml @ 0 mls/hr PROTOCOL IV 09/07/24 10:00 10/07/24 09:59 Methylprednisolone Sodium Succinate (Solu-medROL 40MG) 40 mg Q8H IVP 09/07/24 12:00 10/07/24 11:59 09/08/24 03:29 40 MG Montelukast Sodium (SinguLAIR) 10 mg DAILY PO 09/08/24 09:00 10/08/24 08:59 09/08/24 09:16 10 MG Multivitamins Therapeutic (Multivitamin Tablet) 1 tab DAILY PO 09/08/24 09:00 10/08/24 08:59 09/08/24 09:15 1 TAB Pantoprazole Sodium (PROTonix 40MG INJ) 40 mg Q24H IVP 09/07/24 10:00 10/07/24 09:59 09/08/24 09:10 40 MG Potassium Chloride 100 ml @ 100 mls/hr AD PRN IV POTASSIUM PROTOCOL 09/07/24 10:00 10/07/24 09:59 Potassium Chloride (K-Dur/Klor-Con 20meq) 20 meq AD PRN PO POTASSIUM PROTOCOL 09/07/24 10:00 10/07/24 09:59 09/07/24 12:09 20 MEQ Potassium Chloride (KCl 10% Elixir 20meq/15ml) 20 meq AD PRN PO POTASSIUM PROTOCOL 09/07/24 10:00 10/07/24 09:59 Thiamine HCl (Vitamin B-1) 100 mg Q24H IVP 09/07/24 10:00 10/07/24 09:59 09/08/24 09:10 100 MG DIAGNOSTICS / RADIOLOGY: [ ] ASSESSMENT: Acute on Chronic COPD exacerbation, POA Acute on chronic hypoxemic respiratory failure, POA History of chronic hypercapnic respiratory failure secondary to underlying COPD, POA Medical noncompliance, POA History of continued tobacco use disorder, POA Pulmonary hypertension likely secondary to advanced COPD, POA Underlying history of severe tricuspid regurgitation, POA History of hypertension, POA Anemia, POA Hypokalemia, POA Frailty, POA PLAN: Patient to cardiac telemetry floor Continue with supplemental O2 therapy to maintain oxygen saturation greater than 89% Continue on Solu-Medrol 40 mg q.8 hours Continue on scheduled Pulmicort and nebulizers Broad-spectrum antibiotics with IV cefepime/doxycycline, results of respiratory Consultation with pulmonology will be requested Pending CT scan of the chest 2D echocardiogram for 09/05/2024 had POA SP of 62 with right ventricular dilation and concerns for pulmonary hypotension Monitor closely for respiratory acidosis Electrolytes will be repleted per protocol All labs will be repeated in the morning Patient will be placed on a nicotine patch, discussed with patient about quitting smoking, patient stated that she would think about it Plan of action discussed, all questions answered, agreed and understood the information provided ARIANA FLAHERTY MD September 08, 2024 10:04
[2024-09-08] MEDS: MAGNESIUM 2GM PREMIX 50ML 50 ML IV SCH (12:46)
--- NOTE | 2024-09-08 14:10 | PN ---
[facility] PROGRESS NOTE Date Patient Seen: September 08, 2024 Time of Visit: 14:10 Supervising Physician: Dr. Christian Yin Primary Care Physician: Self Referral Outpatient Specialists: [ ] Inpatient Consults: [facility] Attending: Philipp Jeter MD PROBLEM LIST: Chronic hypoxemic and hypercapnic respiratory failure, POA on O2 Suspected acute on chronic diastolic heart failure with EF of 55-60% Suspected severe pulmonary hypertension with RVSP of 62 mm Hg on 2D echo 09/05/24 COPD exacerbation, POA Emphysema Leukocytosis Thrombocytosis Hypokalemia Heavy tobacco abuse Homelessness Glucosuria Cardiomegaly History of severe tricuspid regurgitation Cachexia Plan Summary: Dispo per primary Continue Solu-Medrol 40 mg q8 hrs and wean as tolerated ABX to cover for healthcare associated pneumonia empirically per primary team Given exposure of smoking for many years, patient has a developed COPD with exacerbation. Patient to follow up as outpatient at pulmonary clinic in two weeks for PFTs, we will continue with nebulizer treatments with Duoneb, Pulmicort, steroids. Singulair 10 mg daily Follow respiratory cultures Maintain O2 sats above 88% Gi PPX with protonix due to steroids smoking cessation Influenza a and B negative, COVID-19 negative, Pending CT chest reading INTERVAL HISTORY: Patient evaluated at bedside today, currently on 2 L nasal cannula, continues with Solu-Medrol 40 q.8 hours as well as cefepime and doxycycline. Nebulizer treatments continue, patient states that she feels improved from her admission time. Patient is tolerating her diet at this time,. Physical exam her respirations are normal, lung sounds distant, denies any cough productive or otherwise today. Patient with a 30 pack-year history. We will continue with the current medical treatment plan, she appears to be at baseline at this time, disposition per primary REVIEW OF SYSTEMS: Const: [no fever, fatigue, or weight changes] Eyes:[ no recent vision problems] ENT: [No congestion, ear pain, or sore throat] C/V: [no chest pain, palpitations or edema] Resp: [yes to occasional cough and sob GI: [No abdominal pain, nausea, vomiting, constipation, or diarrhea] : [No incontinence of or dyuria] M/S: [No joint or pain swelling] Skin: [No rash] Neuro: [no headache, focal numbness, or weakness, dizziness or seizures] Psych: [no depression or anxiety] Heme: [no abnormal bruising or bleeding] Lymph: [no swollen glands] PHYSICAL EXAM: GENERAL: alert, weak, awake oriented x 3 HEENT: EOMI, Sclera non icteric, moist mucosa NECK: Supple, no JVD, trachea midline LUNGS: Diminished to all lobes. No wheezes HEART: Regular rate and rhythm. Normal S1 and S2, without murmurs ABD: Abdomen soft, nontender. Bowel sounds present EXT: No clubbing cyanosis or edema NEURO: Alert and oriented to person, follows commands Vital Signs (last 8hr) Date Time Temp Pulse Resp B/P (MAP) Pulse Ox O2 Delivery O2 Flow Rate FiO2 09/08/24 11:30 97.7 113 20 167/66 100 Nasal Cannula 2.0 09/08/24 11:15 102 20 N/A Room Air 21 09/08/24 11:13 102 20 09/08/24 08:00 97 Room Air* 0 21 09/08/24 07:51 97.9 108 18 140/67 97 Room Air 21 09/08/24 06:37 90 20 N/Cannula Low lpm 2.5 30 09/08/24 06:34 90 20 LABS: Hematology Labs: Test 09/08/24 07:00 09/07/24 07:47 Range/Units White Blood Count 6.2 4.8-10.8 K/uL Red Blood Count 4.94 4.00-5.50 MIL/uL Hemoglobin 9.9 L 12.0-16.0 g/dL Hematocrit 35.6 L 36-48 % Mean Corpuscular Volume 72.1 L 79-99 fL Mean Corpuscular Hemoglobin 20.0 L 27.0-33.0 pg Mean Corpuscular Hemoglobin Concent 27.8 L 32.0-36.0 g/dL Red Cell Distribution Width 21.9 H 11.0-15.5 % Platelet Count 453 H 130-400 K/uL Mean Platelet Volume 9.7 7.5-10.5 fL Immature Granulocyte % (Auto) 0.5 0-1 % Neutrophils (%) (Auto) 85.2 H 40.0-77.0 % Lymphocytes (%) (Auto) 8.1 L 21.0-51.0 % Monocytes (%) (Auto) 6.2 3.0-13.0 % Eosinophils (%) (Auto) 0.0 0.0-8.0 % Basophils (%) (Auto) 0.0 0.0-5.0 % Neutrophils # (Auto) 5.2 1.8-7.7 K/uL Lymphocytes # (Auto) 0.5 L 1.0-4.8 K/uL Monocytes # (Auto) 0.4 0.1-1.0 K/uL Eosinophils # (Auto) 0.00 0.00-0.70 K/uL Basophils # (Auto) 0.00 0.00-0.20 K/uL Absolute Immature Granulocyte (auto 0.03 0-1 K/uL Nucleated Red Blood Cells 0.0 0.0-0.19 % White Cell Morphology Comment See comments Erythrocyte Sedimentation Rate 1 0-30 MM/HR Chemistry Labs: Test 09/08/24 07:00 09/07/24 10:01 09/07/24 07:47 Range/Units Sodium Level 142 136-145 mmol/L Potassium Level 4.6 3.5-5.1 mmol/L Chloride Level 106 101-111 mmol/L Carbon Dioxide Level 31 21-32 mmol/L Blood Urea Nitrogen 26 H 7-18 mg/dL Creatinine 0.5 0.5-1.0 mg/dL Glomerular Filtration Rate Calc 100 >90 mL/min Random Glucose 164 #H 70-105 mg/dL Total Calcium 8.9 8.5-10.1 mg/dL Magnesium Level 1.80 1.80-2.40 mg/dL Total Bilirubin 0.2 # 0.2-1.0 mg/dL Aspartate Amino Transf (AST/SGOT) 11 10-37 U/L Alanine Aminotransferase (ALT/SGPT) 17 # 12-78 U/L Alkaline Phosphatase 98 50-136 U/L Total Protein 6.2 6.0-8.3 g/dL Albumin 3.1 L 3.5-5.0 g/dL Ammonia 18 11-32 umol/L Lactic Acid Level 1.4 0.8-2.5 mmol/L Direct Bilirubin 0.1 0.0-0.3 mg/dL Lactate Dehydrogenase 177 81-234 U/L Troponin I High Sensitivity 26 4-50 ng/L C-Reactive Protein, Quantitative 1.80 0.5-3.0 mg/L B-Type Natriuretic Peptide 158 H 0-100 pg/mL Procalcitonin < 0.05 L 0.05-0.5 ng/mL DIAGNOSTICS / RADIOLOGY RESULTS: [ ] PLAN Continue Solu-Medrol 40 mg q8 hrs and wean as tolerated ABX to cover for healthcare associated pneumonia empirically per primary team Given exposure of smoking for many years, patient has a developed COPD with exacerbation. Patient to follow up as outpatient at pulmonary clinic in two weeks for PFTs, we will continue with nebulizer treatments with Duoneb, Pulmicort, steroids. Singulair 10 mg daily Follow respiratory cultures Maintain O2 sats above 88% Gi PPX with protonix due to steroids smoking cessation Influenza a and B negative, COVID-19 negative, Pending CT chest reading We will need to continue to monitor patient closely, give supplemental oxygen as tolerated to keep SaO2 greater than 88%, Nebulizer Duoneb, Pulmicort, Steroids, LVEP: incentive symmetry, Diuretic if appropriate, Antileukotriene agents: montelukast. Antibiotics to cover CAp is appropriate. We will follow along with you. NEURO: Minimize central acting medications as possible. Maintain fall precautions, adequate lighting during the day PULMONARY: Supplemental 02 as needed. Maintain aspiration precautions at all times CARDIOVASCULAR: Follow hemodynamics. Vital signs per facility protocol GI & NUTRITION: Continue with nutritional support. Continue stool softeners and laxatives as needed. KIDNEYS & ELECTROLYTES: Strict monitoring of intake, output and overall fluid balance. Avoid nephrotoxic medications to the extent possible. Medications to be dosed according to renal function. Monitor electrolytes and replace as needed ENDOCRINE: Maintain blood glucose between 100-180 at all times. Hypoglycemia protocol in place INFECTIOUS DISEASE: Trend temperature, WBC and procalcitonin level Follow cultures, deescalate antibiotics as soon as possible. Panculture if new onset fever ONCOLOGY/HEMATOLOGY/COAGULATION: Monitor for s/s of bleeding Monitor hemoglobin, coagulation studies as needed SKIN: Pressure ulcer prevention per facility protocol Specialty mattress ORTHO/REHAB: Continue PT/OT Prophylaxis: Continue GI and DVT prophylaxis Code Status: Full Resuscitation Disposition: TBD Other: Total patient care time exceeds 35 minutes excluding all procedures. XANDER DE LA GARZA September 08, 2024 14:10
--- NOTE | 2024-09-08 18:26 | NUR ---
DCP Pt appears awake, alert, oriented x3. Pt states she lived in her car for 2 years. Pt has o2 concentrator , receives assistance with food stamps. Pt was at [facility] then discharge. Spoke to daughter Rachel Quevedowide [phone] states she was living with her then got her an apartment in the [place], per daughter pt bought a bus pass and came down to [place] and has been homeless. Daughter voiced concerns for her regarding pt continues to buy poison to kill bugs that she sees on the [place] and says pt spent $600 on lice shampoo. Discharge plan is possible SNF vs behavior unit. Addendum: 09/08/24 at 1853 by JOHN MONDRAGON RN CM Amended: Links added.
[2024-09-09] VITALS (11 sets, daily range): BP systolic 130–170; BP diastolic 61–86; PULSE 85–108; RESP 18–20; TEMP 97.7–98.5; O2SAT 91–93
[2024-09-09 03:58] LABS: MEAN CORPUSCULAR HGB CONC 27.7 g/dL (32.0-36.0); MEAN CORPUSCULAR VOLUME 71.9 fL (79-99); RED BLOOD CELL COUNT(AUTO) 4.31 MIL/uL (4.00-5.50); RED CELL DISTRIBUTION WIDTH 21.2 % (11.0-15.5); WHITE BLOOD COUNT (AUTO) 10.3 K/uL (4.8-10.8)
[2024-09-09 04:15] LABS: ALBUMIN 2.9 g/dL (3.5-5.0); BILIRUBIN,TOTAL 0.1 mg/dL (0.2-1.0); CREATININE 0.5 mg/dL (0.5-1.0); MAGNESIUM 2.6 mg/dL (1.80-2.40); POTASSIUM 4.5 mmol/L (3.5-5.1); TOTAL PROTEIN, SERUM 5.7 g/dL (6.0-8.3)
--- NOTE | 2024-09-09 14:04 | PN ---
[facility] PROGRESS NOTE Date Patient Seen: September 09, 2024 Time of Visit: 14:04 Supervising Physician: Dr. Christian Yin Primary Care Physician: Self Referral Outpatient Specialists: [ ] Inpatient Consults: [facility] Attending: Philipp Jeter MD PROBLEM LIST: Chronic hypoxemic and hypercapnic respiratory failure, POA on O2 Suspected acute on chronic diastolic heart failure with EF of 55-60% Suspected severe pulmonary hypertension with RVSP of 62 mm Hg on 2D echo 09/05/24 COPD exacerbation, POA Emphysema Leukocytosis Thrombocytosis Hypokalemia Heavy tobacco abuse Homelessness Glucosuria Cardiomegaly History of severe tricuspid regurgitation Cachexia Plan Summary: Dispo per primary Continue Solu-Medrol 40 mg q8 hrs and wean as tolerated ABX to cover for healthcare associated pneumonia empirically per primary team Given exposure of smoking for many years, patient has a developed COPD with exacerbation. Patient to follow up as outpatient at pulmonary clinic in two weeks for PFTs, we will continue with nebulizer treatments with Duoneb, Pulmicort, steroids. Singulair 10 mg daily Follow respiratory cultures Maintain O2 sats above 88% Gi PPX with protonix due to steroids smoking cessation Influenza a and B negative, COVID-19 negative, Pending CT chest reading INTERVAL HISTORY: Patient evaluated at bedside today, she remains on room air, denies any shortness of breath, chest pains, nausea, vomiting, endorses only a mild cough with for which she has cough suppressants in her chart. Patient is tolerating physical therapy, recommend to continue antibiotics and complete treatment during the admission, patient states that she is homeless, dispo per primary, pending social worker school and possible SNF placement. REVIEW OF SYSTEMS: Const: [no fever, fatigue, or weight changes] Eyes:[ no recent vision problems] ENT: [No congestion, ear pain, or sore throat] C/V: [no chest pain, palpitations or edema] Resp: [yes to occasional cough and sob GI: [No abdominal pain, nausea, vomiting, constipation, or diarrhea] : [No incontinence of or dyuria] M/S: [No joint or pain swelling] Skin: [No rash] Neuro: [no headache, focal numbness, or weakness, dizziness or seizures] Psych: [no depression or anxiety] Heme: [no abnormal bruising or bleeding] Lymph: [no swollen glands] PHYSICAL EXAM: GENERAL: alert, weak, awake oriented x 3 HEENT: EOMI, Sclera non icteric, moist mucosa NECK: Supple, no JVD, trachea midline LUNGS: Diminished to all lobes. No wheezes HEART: Regular rate and rhythm. Normal S1 and S2, without murmurs ABD: Abdomen soft, nontender. Bowel sounds present EXT: No clubbing cyanosis or edema NEURO: Alert and oriented to person, follows commands Vital Signs (last 8hr) Date Time Temp Pulse Resp B/P (MAP) Pulse Ox O2 Delivery O2 Flow Rate FiO2 09/09/24 11:08 93 20 N/A Room Air 21 09/09/24 11:08 93 20 09/09/24 11:00 97.9 108 20 170/86 99 Room Air 09/09/24 07:05 98.4 98 20 157/74 100 Room Air 21 09/09/24 06:29 92 20 N/A Room Air 21 09/09/24 06:29 92 20 LABS: Hematology Labs: Test 09/09/24 03:42 09/08/24 07:00 Range/Units White Blood Count 10.3 # 4.8-10.8 K/uL Red Blood Count 4.31 4.00-5.50 MIL/uL Hemoglobin 8.6 L 12.0-16.0 g/dL Hematocrit 31.0 L 36-48 % Mean Corpuscular Volume 71.9 L 79-99 fL Mean Corpuscular Hemoglobin 20.0 L 27.0-33.0 pg Mean Corpuscular Hemoglobin Concent 27.7 L 32.0-36.0 g/dL Red Cell Distribution Width 21.2 H 11.0-15.5 % Platelet Count 353 130-400 K/uL Mean Platelet Volume 9.2 7.5-10.5 fL Nucleated Red Blood Cells 0.0 0.0-0.19 % Immature Granulocyte % (Auto) 0.5 0-1 % Neutrophils (%) (Auto) 85.2 H 40.0-77.0 % Lymphocytes (%) (Auto) 8.1 L 21.0-51.0 % Monocytes (%) (Auto) 6.2 3.0-13.0 % Eosinophils (%) (Auto) 0.0 0.0-8.0 % Basophils (%) (Auto) 0.0 0.0-5.0 % Neutrophils # (Auto) 5.2 1.8-7.7 K/uL Lymphocytes # (Auto) 0.5 L 1.0-4.8 K/uL Monocytes # (Auto) 0.4 0.1-1.0 K/uL Eosinophils # (Auto) 0.00 0.00-0.70 K/uL Basophils # (Auto) 0.00 0.00-0.20 K/uL Absolute Immature Granulocyte (auto 0.03 0-1 K/uL White Cell Morphology Comment See comments Chemistry Labs: Test 09/09/24 03:42 Range/Units Sodium Level 142 136-145 mmol/L Potassium Level 4.5 3.5-5.1 mmol/L Chloride Level 108 101-111 mmol/L Carbon Dioxide Level 31 21-32 mmol/L Blood Urea Nitrogen 34 H 7-18 mg/dL Creatinine 0.5 0.5-1.0 mg/dL Glomerular Filtration Rate Calc 100 >90 mL/min Random Glucose 148 H 70-105 mg/dL Total Calcium 8.5 8.5-10.1 mg/dL Magnesium Level 2.60 H 1.80-2.40 mg/dL Total Bilirubin 0.1 #L 0.2-1.0 mg/dL Aspartate Amino Transf (AST/SGOT) 17 10-37 U/L Alanine Aminotransferase (ALT/SGPT) 15 12-78 U/L Alkaline Phosphatase 79 50-136 U/L Total Protein 5.7 L 6.0-8.3 g/dL Albumin 2.9 L 3.5-5.0 g/dL DIAGNOSTICS / RADIOLOGY RESULTS: [ ] PLAN Continue Solu-Medrol 40 mg q8 hrs and wean as tolerated ABX to cover for healthcare associated pneumonia empirically per primary team Given exposure of smoking for many years, patient has a developed COPD with exacerbation. Patient to follow up as outpatient at pulmonary clinic in two weeks for PFTs, we will continue with nebulizer treatments with Duoneb, Pulmicort, steroids. Singulair 10 mg daily Follow respiratory cultures Maintain O2 sats above 88% Gi PPX with protonix due to steroids smoking cessation Influenza a and B negative, COVID-19 negative, Pending CT chest reading We will need to continue to monitor patient closely, give supplemental oxygen as tolerated to keep SaO2 greater than 88%, Nebulizer Duoneb, Pulmicort, Steroids, LVEP: incentive symmetry, Diuretic if appropriate, Antileukotriene agents: montelukast. Antibiotics to cover CAp is appropriate. We will follow along with you. NEURO: Minimize central acting medications as possible. Maintain fall precautions, adequate lighting during the day PULMONARY: Supplemental 02 as needed. Maintain aspiration precautions at all times CARDIOVASCULAR: Follow hemodynamics. Vital signs per facility protocol GI & NUTRITION: Continue with nutritional support. Continue stool softeners and laxatives as needed. KIDNEYS & ELECTROLYTES: Strict monitoring of intake, output and overall fluid balance. Avoid nephrotoxic medications to the extent possible. Medications to be dosed according to renal function. Monitor electrolytes and replace as needed ENDOCRINE: Maintain blood glucose between 100-180 at all times. Hypoglycemia protocol in place INFECTIOUS DISEASE: Trend temperature, WBC and procalcitonin level Follow cultures, deescalate antibiotics as soon as possible. Panculture if new onset fever ONCOLOGY/HEMATOLOGY/COAGULATION: Monitor for s/s of bleeding Monitor hemoglobin, coagulation studies as needed SKIN: Pressure ulcer prevention per facility protocol Specialty mattress ORTHO/REHAB: Continue PT/OT Prophylaxis: Continue GI and DVT prophylaxis Code Status: Full Resuscitation Disposition: TBD Other: Total patient care time exceeds 35 minutes excluding all procedures. XANDER DE LA GARZA September 09, 2024 14:04
[2024-09-09] MEDS: NICOTINE 7 MG/ 24 HR PATCH TD PRN (14:33)
--- NOTE | 2024-09-09 19:45 | PN ---
[facility] PROGRESS NOTE Date of Service: September 09, 2024 Time of Service: 19:41 SUBJECTIVE: 09/08 patient admitted due to chronic hypoxemic and hypercapnic respiratory failure, with COPD exacerbation and suspected acute on chronic diastolic heart failure. The patient has been seen and examined earlier this morning during my rounding, case discussed with the RN, no acute events overnight, during my visit the patient is comfortably in bed, remains on 2 L via nasal cannula, saturating 98%, BP 140/67, heart rate of 90, afebrile, admits mild dry nonproductive cough, she feels less short of breath compared to time of admission, she is getting IV antibiotics. Continue the patient on Solu-Medrol IV, wean as tolerated, continue bronchodilators per RT, continue to follow Pulmonary input and recommendation, CT scan of the chest pending. 09/09 patient seen at bedside, no acute events overnight. She is still has bilateral rhonchus breathing. Patient reports that she is homeless and currently does not have any home medications. She is currently trying to get assistance obtaining help with rent and a home in [facility]. She does have social security, Medicare and reports she is on disability so she does have some income. Case management will assist her for final placement. She does continue to smoke which likely is contributing to her COPD. We will continue with nebulizer treatments and systemic steroids and follow up with pulmonology. REVIEW OF SYSTEMS CONSTITUTIONAL: Denies fevers, chills, or night sweats. No unintentional weight loss reported. NEUROLOGICAL: Denies headache, amaurosis fugax, motor weakness, sensory deficit, vertigo/spinning sensation, gait abnormalities, or tremors. ENT: No hearing loss, otalgia, otorrhea, rhinitis, rhinorrhea, hoarseness, or sore throat. CARDIOVASCULAR: Denies any exertional angina, dyspnea on exertion, orthopnea, paroxysmal nocturnal dyspnea, palpitations, life-threatening arrhythmias, claudication. PULMONARY: Labs, shortness of breath, wheezing, dyspnea on exertion, phlegm production SLEEP: Denies morning headaches, daytime somnolence or napping. Denies difficulty falling asleep, staying asleep, waking from sleep. Denies knowledge of snoring. GASTROINTESTINAL: Denies any type of dysphagia to either liquids or solids. Denies nausea, vomiting, pyrosis, early satiety, abdominal pain, diarrhea, constipation, or changes in stool consistency or caliber. Denies coffee-ground emesis, hematemesis, hematochezia, or melanotic stools. GENITOURINARY: Denies frequency, urgency, nocturia, hematuria or incontinence (Storage/Irritative symptoms.) Low urinary stream, straining to void, urinary intermittency or hesitancy, splitting of the voiding stream, terminal dribbling. ENDOCRINOLOGIC: Denies polyuria, polydipsia, polyphagia or heat/cold intolerances. HEMATOLOGIC: Denies thrombophilia/previous clots, or coagulopathy/bleeding disorders. ONCOLOGIC: Denies personal history of malignancy. DERMATOLOGIC: Denies rashes or pruritus. PSYCHIATRIC: Denies any suicidal or homicidal ideation. Denies hallucinations. PHYSICAL EXAM GENERAL APPEARANCE: The patient is awake, alert, and oriented, in no acute cardiopulmonary distress. NEUROLOGICAL: Cranial nerves II-XII grossly intact. Motor is 5/5 in bilateral upper and lower extremities proximal to distal. No sensory deficits. HEENT: Face is symmetric. Pupils are equal and reactive. Extraocular movements are intact. NECK: Supple. No JVD. No thyromegaly. No submental, submandibular, pre- /postauricular, occipital or supraclavicular lymphadenopathy. CHEST: Normal chest expansion. No Telemetry. LUNGS: Wheezing noted bilaterally with rhonchorous breath sounds that clears with cough CARDIOVASCULAR: Regular. S1 and S2 normal. No appreciable rubs, murmurs or gallops. ABDOMEN: Soft, nontender, and nondistended. There is no rebound, voluntary guarding, or rigidity. : Deferred. No Estrada. EXTREMITIES: Non-edematous and not cyanotic. No clubbing. Good capillary refill. SKIN: No skin breakdown. Vital Signs (last 8hr) Date Time Temp Pulse Resp B/P (MAP) Pulse Ox O2 Delivery O2 Flow Rate FiO2 09/09/24 18:41 90 20 09/09/24 18:34 92 20 N/A Room Air 21 09/09/24 15:00 98.1 100 20 159/84 99 Room Air 21 LABS: Laboratory: Test 09/09/24 03:42 09/08/24 07:00 Range/Units White Blood Count 10.3 # 4.8-10.8 K/uL Red Blood Count 4.31 4.00-5.50 MIL/uL Hemoglobin 8.6 L 12.0-16.0 g/dL Hematocrit 31.0 L 36-48 % Mean Corpuscular Volume 71.9 L 79-99 fL Mean Corpuscular Hemoglobin 20.0 L 27.0-33.0 pg Mean Corpuscular Hemoglobin Concent 27.7 L 32.0-36.0 g/dL Red Cell Distribution Width 21.2 H 11.0-15.5 % Platelet Count 353 130-400 K/uL Mean Platelet Volume 9.2 7.5-10.5 fL Nucleated Red Blood Cells 0.0 0.0-0.19 % Sodium Level 142 136-145 mmol/L Potassium Level 4.5 3.5-5.1 mmol/L Chloride Level 108 101-111 mmol/L Carbon Dioxide Level 31 21-32 mmol/L Blood Urea Nitrogen 34 H 7-18 mg/dL Creatinine 0.5 0.5-1.0 mg/dL Glomerular Filtration Rate Calc 100 >90 mL/min Random Glucose 148 H 70-105 mg/dL Total Calcium 8.5 8.5-10.1 mg/dL Magnesium Level 2.60 H 1.80-2.40 mg/dL Total Bilirubin 0.1 #L 0.2-1.0 mg/dL Aspartate Amino Transf (AST/SGOT) 17 10-37 U/L Alanine Aminotransferase (ALT/SGPT) 15 12-78 U/L Alkaline Phosphatase 79 50-136 U/L Total Protein 5.7 L 6.0-8.3 g/dL Albumin 2.9 L 3.5-5.0 g/dL Immature Granulocyte % (Auto) 0.5 0-1 % Neutrophils (%) (Auto) 85.2 H 40.0-77.0 % Lymphocytes (%) (Auto) 8.1 L 21.0-51.0 % Monocytes (%) (Auto) 6.2 3.0-13.0 % Eosinophils (%) (Auto) 0.0 0.0-8.0 % Basophils (%) (Auto) 0.0 0.0-5.0 % Neutrophils # (Auto) 5.2 1.8-7.7 K/uL Lymphocytes # (Auto) 0.5 L 1.0-4.8 K/uL Monocytes # (Auto) 0.4 0.1-1.0 K/uL Eosinophils # (Auto) 0.00 0.00-0.70 K/uL Basophils # (Auto) 0.00 0.00-0.20 K/uL Absolute Immature Granulocyte (auto 0.03 0-1 K/uL White Cell Morphology Comment See comments Current Medications Medications (Trade) Dose Ordered Sig/Jo Route PRN Reason Start Time Stop Time Status Last Admin Dose Admin Acetaminophen (TYLenol 325MG TAB) 650 mg Q6H PRN PO MILD PAIN (1-3) 09/07/24 10:00 10/07/24 09:59 09/08/24 09:27 650 MG Albuterol (DUOneb) 1 udvial [id number] IH 09/07/24 12:00 10/07/24 11:59 09/09/24 18:33 1 UDVIAL Amlodipine Besylate (NorvASC 5MG TAB) 5 mg DAILY PO 09/08/24 09:00 09/09/24 19:41 DC 09/09/24 09:31 5 MG Amlodipine Besylate (NorvASC 5MG TAB) 10 mg DAILY PO 09/10/24 09:00 10/10/24 08:59 UNV Budesonide (Pulmicort 0.5 Mg/2ml) 0.5 mg BIDRESP IH 09/07/24 10:00 10/07/24 09:59 09/09/24 18:33 0.5 MG Cefepime HCl (MAXipime 1 GM vial) 1 gm Q8H IVPB 09/07/24 10:00 09/17/24 09:59 09/09/24 16:41 1 GM Doxycycline Hyclate (Doxycycline Hyclate) 100 mg BID PO 09/07/24 21:00 09/17/24 20:59 09/09/24 09:31 100 MG Enoxaparin Sodium (Lovenox) 30 mg DAILY SQ 09/08/24 09:00 10/08/24 08:59 09/09/24 09:34 30 MG Guaifenesin/ Dextromethorphan (RobiTUSSin DM 200/20MG 10ML) 10 ml Q6H PRN PO COUGH 09/07/24 10:30 10/07/24 10:29 Hydralazine HCl (APRESOLine 20MG INJ) 5 mg Q6H PRN IV ADMINISTER FOR SBP > 160 09/07/24 10:30 10/07/24 10:29 Losartan Potassium (CozAAR 50 mg TAB) 50 mg BID PO 09/09/24 21:00 10/09/24 20:59 UNV Magnesium Sulfate 50 ml @ 0 mls/hr PROTOCOL IV 09/07/24 10:00 10/07/24 09:59 09/08/24 12:46 25 MLS/HR Methylprednisolone Sodium Succinate (Solu-medROL 40MG) 40 mg Q8H IVP 09/07/24 12:00 10/07/24 11:59 09/09/24 14:00 40 MG Montelukast Sodium (SinguLAIR) 10 mg DAILY PO 09/08/24 09:00 10/08/24 08:59 09/09/24 09:31 10 MG Multivitamins Therapeutic (Multivitamin Tablet) 1 tab DAILY PO 09/08/24 09:00 10/08/24 08:59 09/09/24 09:31 1 TAB Nicotine (Nicoderm) 7 mg DAILY PRN TD NICOTINE WITHDRAWAL 09/08/24 12:00 10/08/24 11:59 09/09/24 14:33 7 MG Pantoprazole Sodium (PROTonix 40MG INJ) 40 mg Q24H IVP 09/07/24 10:00 10/07/24 09:59 09/09/24 09:32 40 MG Potassium Chloride 100 ml @ 100 mls/hr AD PRN IV POTASSIUM PROTOCOL 09/07/24 10:00 10/07/24 09:59 Potassium Chloride (K-Dur/Klor-Con 20meq) 20 meq AD PRN PO POTASSIUM PROTOCOL 09/07/24 10:00 10/07/24 09:59 09/07/24 12:09 20 MEQ Potassium Chloride (KCl 10% Elixir 20meq/15ml) 20 meq AD PRN PO POTASSIUM PROTOCOL 09/07/24 10:00 10/07/24 09:59 Thiamine HCl (Vitamin B-1) 100 mg Q24H IVP 09/07/24 10:00 10/07/24 09:59 09/09/24 09:32 100 MG DIAGNOSTICS / RADIOLOGY: [ ] ASSESSMENT: Acute on Chronic COPD exacerbation, POA Acute on chronic hypoxemic respiratory failure, POA History of chronic hypercapnic respiratory failure secondary to underlying COPD, POA Medical noncompliance, POA History of continued tobacco use disorder, POA Pulmonary hypertension likely secondary to advanced COPD, POA Underlying history of severe tricuspid regurgitation, POA History of hypertension, POA Anemia, POA Hypokalemia, POA Frailty, POA PLAN: Patient to cardiac telemetry floor Continue with supplemental O2 therapy to maintain oxygen saturation greater than 89% We will start patient on Solu-Medrol 40 mg q.8 hours We will start patient on scheduled Pulmicort and nebulizers Broad-spectrum antibiotics with IV cefepime/doxycycline, respiratory cultures will be obtained Consultation with pulmonology will be requested We will follow up CT chest without contrast, BNP is minimally elevated secondary to underlying severe tricuspid regurgitation, patient on 2D echocardiogram for 09/05/2024 had PASP of 62 with right ventricular dilation and concerns for pulmonary hypertension We will try to obtain home medication list once available Case management consultation will be requested Monitor closely for respiratory acidosis Electrolytes will be repleted per protocol All labs will be repeated in the morning Patient will be placed on a nicotine patch, discussed with patient about quitting smoking, patient stated that she would think about it Disposition: Pending placement ADELAIDA MALDONADO MD September 09, 2024 19:45
[2024-09-09] MEDS: LoSARTan 50 MG TABLET PO SCH (21:07)
[2024-09-10] VITALS (11 sets, daily range): BP systolic 134–163; BP diastolic 58–88; PULSE 86–95; RESP 16–20; TEMP 98–98.5; O2SAT 92–95
[2024-09-10 06:03] LABS: BASOPHILS # (AUTO) 0.01 K/uL (0.00-0.20); BASOPHILS % (AUTO) 0.1 % (0.0-5.0); HEMATOCRIT 34.9 % (36-48); IMMATURE GRANULOCYTE ABSOLUTE 0.07 K/uL (0-1); LYMPHOCYTES # (AUTO) 0.8 K/uL (1.0-4.8); LYMPHOCYTES % (AUTO) 7.8 % (21.0-51.0); MEAN CORPUSCULAR HEMOGLOBIN 19.7 pg (27.0-33.0); MEAN CORPUSCULAR HGB CONC 27.2 g/dL (32.0-36.0); MEAN CORPUSCULAR VOLUME 72.3 fL (79-99); MONOCYTES # (AUTO) 0.6 K/uL (0.1-1.0); MONOCYTES % (AUTO) 5.7 % (3.0-13.0); NEUTROPHILS # (AUTO) 9.3 K/uL (1.8-7.7); NEUTROPHILS % (AUTO) 85.8 % (40.0-77.0); NUCLEATED RED BLOOD CELLS 0.2 % (0.0-0.19); PLATELET COUNT (AUTO) 402 K/uL (130-400); RED BLOOD CELL COUNT(AUTO) 4.83 MIL/uL (4.00-5.50); RED CELL DISTRIBUTION WIDTH 21.9 % (11.0-15.5); WHITE BLOOD COUNT (AUTO) 10.8 K/uL (4.8-10.8)
[2024-09-10 06:19] LABS: CREATININE 0.4 mg/dL (0.5-1.0); MAGNESIUM 1.8 mg/dL (1.80-2.40); PHOSPHORUS 3.1 mg/dL (2.5-4.9); POTASSIUM 4.5 mmol/L (3.5-5.1)
[2024-09-10] MEDS: amLODIPine 5 MG TAB PO SCH (08:17)
[2024-09-10] MEDS: guaiFENesin-DM 200/20MG 10ML PO PRN (08:18)
--- NOTE | 2024-09-10 13:28 | PN ---
[facility] PROGRESS NOTE Date of Service: September 10, 2024 Time of Service: 13:20 SUBJECTIVE: 09/08 patient admitted due to chronic hypoxemic and hypercapnic respiratory failure, with COPD exacerbation and suspected acute on chronic diastolic heart failure. The patient has been seen and examined earlier this morning during my rounding, case discussed with the RN, no acute events overnight, during my visit the patient is comfortably in bed, remains on 2 L via nasal cannula, saturating 98%, BP 140/67, heart rate of 90, afebrile, admits mild dry nonproductive cough, she feels less short of breath compared to time of admission, she is getting IV antibiotics. Continue the patient on Solu-Medrol IV, wean as tolerated, continue bronchodilators per RT, continue to follow Pulmonary input and recommendation, CT scan of the chest pending. 09/09 patient seen at bedside, no acute events overnight. She is still has bilateral rhonchus breathing. Patient reports that she is homeless and currently does not have any home medications. She is currently trying to get assistance obtaining help with [employer] and a home in [facility]. She does have social security, Medicare and reports she is on disability so she does have some income. Case management will assist her for final placement. She does continue to smoke which likely is contributing to her COPD. We will continue with nebulizer treatments and systemic steroids and follow up with pulmonology. 09/10 patient seen at bedside, no acute events overnight. Patient needing placement, she has underlying psych issues with reported hallucinations concerning for schizophrenia. Reviewing her external medications does not show any medications consistent with such a diagnosis. Case management reaching out to her daughter, who lives in [place], for further guidance regarding placement as patient is currently homeless and does not have a social support here. She reportedly had an apartment in [place] near her daughter but bought a bus ticket to [place] for unknown reasons. REVIEW OF SYSTEMS 12 point review of systems negative unless noted in HPI PHYSICAL EXAM GENERAL APPEARANCE: The patient is awake, alert, and oriented, in no acute cardiopulmonary distress. NEUROLOGICAL: Cranial nerves II-XII grossly intact. Motor is 5/5 in bilateral upper and lower extremities proximal to distal. No sensory deficits. HEENT: Face is symmetric. Pupils are equal and reactive. Extraocular movements are intact. NECK: Supple. No JVD. No thyromegaly. No submental, submandibular, pre- /postauricular, occipital or supraclavicular lymphadenopathy. CHEST: Normal chest expansion. No Telemetry. LUNGS: Wheezing noted bilaterally with rhonchorous breath sounds that clears with cough CARDIOVASCULAR: Regular. S1 and S2 normal. No appreciable rubs, murmurs or gallops. ABDOMEN: Soft, nontender, and nondistended. There is no rebound, voluntary guarding, or rigidity. : Deferred. No Estrada. EXTREMITIES: Non-edematous and not cyanotic. No clubbing. Good capillary refill. SKIN: No skin breakdown. Vital Signs (last 8hr) Date Time Temp Pulse Resp B/P (MAP) Pulse Ox O2 Delivery O2 Flow Rate FiO2 09/10/24 12:00 98.2 86 16 163/58 89 Room Air 21 09/10/24 08:00 98.4 92 16 149/86 92 Nasal Cannula 2.0 24 09/10/24 06:28 86 20 N/A Room Air 21 09/10/24 06:23 86 17 LABS: Laboratory: Test 09/10/24 05:02 09/09/24 03:42 Range/Units White Blood Count 10.8 4.8-10.8 K/uL Red Blood Count 4.83 4.00-5.50 MIL/uL Hemoglobin 9.5 L 12.0-16.0 g/dL Hematocrit 34.9 L 36-48 % Mean Corpuscular Volume 72.3 L 79-99 fL Mean Corpuscular Hemoglobin 19.7 L 27.0-33.0 pg Mean Corpuscular Hemoglobin Concent 27.2 L 32.0-36.0 g/dL Red Cell Distribution Width 21.9 H 11.0-15.5 % Platelet Count 402 H 130-400 K/uL Mean Platelet Volume 9.5 7.5-10.5 fL Immature Granulocyte % (Auto) 0.6 0-1 % Neutrophils (%) (Auto) 85.8 H 40.0-77.0 % Lymphocytes (%) (Auto) 7.8 L 21.0-51.0 % Monocytes (%) (Auto) 5.7 3.0-13.0 % Eosinophils (%) (Auto) 0.0 0.0-8.0 % Basophils (%) (Auto) 0.1 0.0-5.0 % Neutrophils # (Auto) 9.3 H 1.8-7.7 K/uL Lymphocytes # (Auto) 0.8 L 1.0-4.8 K/uL Monocytes # (Auto) 0.6 0.1-1.0 K/uL Eosinophils # (Auto) 0.00 0.00-0.70 K/uL Basophils # (Auto) 0.01 0.00-0.20 K/uL Absolute Immature Granulocyte (auto 0.07 0-1 K/uL Nucleated Red Blood Cells 0.2 H 0.0-0.19 % Sodium Level 142 136-145 mmol/L Potassium Level 4.5 3.5-5.1 mmol/L Chloride Level 106 101-111 mmol/L Carbon Dioxide Level 31 21-32 mmol/L Blood Urea Nitrogen 28 H 7-18 mg/dL Creatinine 0.4 L 0.5-1.0 mg/dL Glomerular Filtration Rate Calc 106 >90 mL/min Random Glucose 131 H 70-105 mg/dL Total Calcium 8.9 8.5-10.1 mg/dL Phosphorus Level 3.1 2.5-4.9 mg/dL Magnesium Level 1.80 1.80-2.40 mg/dL Total Bilirubin 0.1 #L 0.2-1.0 mg/dL Aspartate Amino Transf (AST/SGOT) 17 10-37 U/L Alanine Aminotransferase (ALT/SGPT) 15 12-78 U/L Alkaline Phosphatase 79 50-136 U/L Total Protein 5.7 L 6.0-8.3 g/dL Albumin 2.9 L 3.5-5.0 g/dL Current Medications Medications (Trade) Dose Ordered Sig/Jo Route PRN Reason Start Time Stop Time Status Last Admin Dose Admin Acetaminophen (TYLenol 325MG TAB) 650 mg Q6H PRN PO MILD PAIN (1-3) 09/07/24 10:00 10/07/24 09:59 09/10/24 12:21 650 MG Albuterol (DUOneb) 1 udvial [id number] IH 09/07/24 12:00 10/07/24 11:59 09/10/24 06:29 1 UDVIAL Amlodipine Besylate (NorvASC 5MG TAB) 5 mg DAILY PO 09/08/24 09:00 09/09/24 19:41 DC 09/09/24 09:31 5 MG Amlodipine Besylate (NorvASC 5MG TAB) 10 mg DAILY PO 09/10/24 09:00 10/10/24 08:59 09/10/24 08:17 10 MG Budesonide (Pulmicort 0.5 Mg/2ml) 0.5 mg BIDRESP IH 09/07/24 10:00 10/07/24 09:59 09/10/24 06:29 0.5 MG Cefepime HCl (MAXipime 1 GM vial) 1 gm Q8H IVPB 09/07/24 10:00 09/17/24 09:59 09/10/24 12:11 1 GM Doxycycline Hyclate (Doxycycline Hyclate) 100 mg BID PO 09/07/24 21:00 09/17/24 20:59 09/10/24 08:18 100 MG Enoxaparin Sodium (Lovenox) 30 mg DAILY SQ 09/08/24 09:00 10/08/24 08:59 09/10/24 08:18 30 MG Guaifenesin/ Dextromethorphan (RobiTUSSin DM 200/20MG 10ML) 10 ml Q6H PRN PO COUGH 09/07/24 10:30 10/07/24 10:29 09/10/24 08:18 10 ML Hydralazine HCl (APRESOLine 20MG INJ) 5 mg Q6H PRN IV ADMINISTER FOR SBP > 160 09/07/24 10:30 10/07/24 10:29 Losartan Potassium (CozAAR 50 mg TAB) 50 mg BID PO 09/09/24 21:00 10/09/24 20:59 09/10/24 08:18 50 MG Magnesium Sulfate 50 ml @ 0 mls/hr PROTOCOL IV 09/07/24 10:00 10/07/24 09:59 09/08/24 12:46 25 MLS/HR Methylprednisolone Sodium Succinate (Solu-medROL 40MG) 40 mg Q8H IVP 09/07/24 12:00 10/07/24 11:59 09/10/24 12:08 40 MG Montelukast Sodium (SinguLAIR) 10 mg DAILY PO 09/08/24 09:00 10/08/24 08:59 09/10/24 08:18 10 MG Multivitamins Therapeutic (Multivitamin Tablet) 1 tab DAILY PO 09/08/24 09:00 10/08/24 08:59 09/10/24 08:18 1 TAB Nicotine (Nicoderm) 7 mg DAILY PRN TD NICOTINE WITHDRAWAL 09/08/24 12:00 09/10/24 11:10 DC 09/10/24 08:18 7 MG Nicotine (Nicoderm) 21 mg DAILY TD 09/11/24 09:00 10/11/24 08:59 Pantoprazole Sodium (PROTonix 40MG INJ) 40 mg Q24H IVP 09/07/24 10:00 10/07/24 09:59 09/09/24 09:32 40 MG Potassium Chloride 100 ml @ 100 mls/hr AD PRN IV POTASSIUM PROTOCOL 09/07/24 10:00 10/07/24 09:59 Potassium Chloride (K-Dur/Klor-Con 20meq) 20 meq AD PRN PO POTASSIUM PROTOCOL 09/07/24 10:00 10/07/24 09:59 09/07/24 12:09 20 MEQ Potassium Chloride (KCl 10% Elixir 20meq/15ml) 20 meq AD PRN PO POTASSIUM PROTOCOL 09/07/24 10:00 10/07/24 09:59 Thiamine HCl (Vitamin B-1) 100 mg Q24H IVP 09/07/24 10:00 10/07/24 09:59 09/10/24 12:08 100 MG DIAGNOSTICS / RADIOLOGY: [ ] ASSESSMENT: Acute on Chronic COPD exacerbation, POA Acute on chronic hypoxemic respiratory failure, POA History of chronic hypercapnic respiratory failure secondary to underlying COPD, POA Medical noncompliance, POA History of continued tobacco use disorder, POA Pulmonary hypertension likely secondary to advanced COPD, POA Underlying history of severe tricuspid regurgitation, POA History of hypertension, POA Anemia, POA Hypokalemia, POA Frailty, POA PLAN: Patient to cardiac telemetry floor Continue with supplemental O2 therapy to maintain oxygen saturation greater than 89% We will start patient on Solu-Medrol 40 mg q.8 hours We will start patient on scheduled Pulmicort and nebulizers Broad-spectrum antibiotics with IV cefepime/doxycycline, respiratory cultures will be obtained Consultation with pulmonology will be requested We will follow up CT chest without contrast, BNP is minimally elevated secondary to underlying severe tricuspid regurgitation, patient on 2D echocardiogram for 09/05/2024 had PASP of 62 with right ventricular dilation and concerns for pulmonary hypertension We will try to obtain home medication list once available Case management consultation will be requested Monitor closely for respiratory acidosis Electrolytes will be repleted per protocol All labs will be repeated in the morning Patient will be placed on a nicotine patch, discussed with patient about quitti ng smoking, patient stated that she would think about it Disposition: Pending placement ADELAIDA MALDONADO MD September 10, 2024 13:28
--- NOTE | 2024-09-10 13:33 | HMCIMG ---
CT NONCONTRAST CHEST Comparison Study: none History: acute on chronic COPD exacerbation, r/o any developing pneumonia Technique: Helical CT of the chest without IV contrast at 5 mm collimation. Coronal and sagittal reformations also done. CT Dose Index (CTDI): 2.38 mGy Dose Length Product (DLP): 94.8 total mGy-cm Findings: The airway is intact. The trachea and major bronchi are unremarkable. The chest exam shows no pulmonary nodules or masses. Centrilobular emphysema is seen particularly involving the apices. No pulmonary infiltrates or mass lesions are seen. No pleural effusions are identified. There is no pneumothorax. There is no evidence of pneumomediastinum. The nonenhanced exam of the zhou and mediastinum is unremarkable. No evidence of hilar enlargement is seen. The aorta shows no aneurysmal dilatation or significant atheromatous calcification. No significant brachiocephalic vascular abnormalities are seen. The heart is unremarkable. It is not enlarged. No significant coronary arterial calcifications are seen. There is no pericardial effusion. The rib cage appears unremarkable. The soft tissues of the chest wall are unremarkable. The dorsal spine shows no significant abnormalities. IMPRESSION: Centrilobular emphysema. No pneumonic infiltrates. This study was performed using dose reduction techniques to include automated exposure control and/or adjustment of the mA and/or kV according to patient size.
--- NOTE | 2024-09-10 14:18 | PN ---
[facility] PROGRESS NOTE Date Patient Seen: September 10, 2024 Time of Visit: 14:18 Supervising Physician: Dr. Allison Ring Primary Care Physician: Self Referral Outpatient Specialists: [ ] Inpatient Consults: [facility] Attending: Philipp Jeter MD PROBLEM LIST: Chronic hypoxemic and hypercapnic respiratory failure, POA on O2 Suspected acute on chronic diastolic heart failure with EF of 55-60% Suspected severe pulmonary hypertension with RVSP of 62 mm Hg on 2D echo 09/05/24 COPD exacerbation, POA Emphysema Leukocytosis Thrombocytosis Hypokalemia Heavy tobacco abuse Homelessness Glucosuria Cardiomegaly History of severe tricuspid regurgitation Cachexia Plan Summary: Dispo per primary Continue Solu-Medrol 40 mg q8 hrs and wean as tolerated ABX to cover for healthcare associated pneumonia empirically per primary team Given exposure of smoking for many years, patient has a developed COPD with exacerbation. Patient to follow up as outpatient at pulmonary clinic in two weeks for PFTs, we will continue with nebulizer treatments with Duoneb, Pulmicort, steroids. Singulair 10 mg daily Follow respiratory cultures Maintain O2 sats above 88% Gi PPX with protonix due to steroids smoking cessation Influenza a and B negative, COVID-19 negative, Pending CT chest reading INTERVAL HISTORY: Patient was evaluated at bedside, remains on room air today. Patient endorses a cough for which she has been vacation in her chart PRN. Smoking cessation was discussed with the patient today, nursing staff reports there was an event in which the patient attempted to smoke a cigarette in her hospital room. Patient continues with coarse crackles on auscultation bilaterally, continue nebulizer treatments, continue antibiotic therapy, continue Solu-Medrol. Patient requested nicotine patch to be upgraded, currently the 21 mg today. Dispo per primary, case management working on placement for the patient as her current status is homeless. Case management will also work on getting any records from her previous admission to [facility] in order to start the patient on any psychiatric medications she may require and might benefit her during this admission. REVIEW OF SYSTEMS: Const: [no fever, fatigue, or weight changes] Eyes:[ no recent vision problems] ENT: [No congestion, ear pain, or sore throat] C/V: [no chest pain, palpitations or edema] Resp: [yes to occasional cough and sob GI: [No abdominal pain, nausea, vomiting, constipation, or diarrhea] : [No incontinence of or dyuria] M/S: [No joint or pain swelling] Skin: [No rash] Neuro: [no headache, focal numbness, or weakness, dizziness or seizures] Psych: [no depression or anxiety] Heme: [no abnormal bruising or bleeding] Lymph: [no swollen glands] PHYSICAL EXAM: GENERAL: alert, weak, awake oriented x 3 HEENT: EOMI, Sclera non icteric, moist mucosa NECK: Supple, no JVD, trachea midline LUNGS: Diminished to all lobes. No wheezes HEART: Regular rate and rhythm. Normal S1 and S2, without murmurs ABD: Abdomen soft, nontender. Bowel sounds present EXT: No clubbing cyanosis or edema NEURO: Alert and oriented to person, follows commands Vital Signs (last 8hr) Date Time Temp Pulse Resp B/P (MAP) Pulse Ox O2 Delivery O2 Flow Rate FiO2 09/10/24 12:00 98.2 86 16 163/58 89 Room Air 09/10/24 08:00 98.4 92 16 149/86 92 Nasal Cannula 2.0 24 09/10/24 06:28 86 20 N/A Room Air 09/10/24 06:23 86 17 LABS: Hematology Labs: Test 09/10/24 05:02 Range/Units White Blood Count 10.8 4.8-10.8 K/uL Red Blood Count 4.83 4.00-5.50 MIL/uL Hemoglobin 9.5 L 12.0-16.0 g/dL Hematocrit 34.9 L 36-48 % Mean Corpuscular Volume 72.3 L 79-99 fL Mean Corpuscular Hemoglobin 19.7 L 27.0-33.0 pg Mean Corpuscular Hemoglobin Concent 27.2 L 32.0-36.0 g/dL Red Cell Distribution Width 21.9 H 11.0-15.5 % Platelet Count 402 H 130-400 K/uL Mean Platelet Volume 9.5 7.5-10.5 fL Immature Granulocyte % (Auto) 0.6 0-1 % Neutrophils (%) (Auto) 85.8 H 40.0-77.0 % Lymphocytes (%) (Auto) 7.8 L 21.0-51.0 % Monocytes (%) (Auto) 5.7 3.0-13.0 % Eosinophils (%) (Auto) 0.0 0.0-8.0 % Basophils (%) (Auto) 0.1 0.0-5.0 % Neutrophils # (Auto) 9.3 H 1.8-7.7 K/uL Lymphocytes # (Auto) 0.8 L 1.0-4.8 K/uL Monocytes # (Auto) 0.6 0.1-1.0 K/uL Eosinophils # (Auto) 0.00 0.00-0.70 K/uL Basophils # (Auto) 0.01 0.00-0.20 K/uL Absolute Immature Granulocyte (auto 0.07 0-1 K/uL Nucleated Red Blood Cells 0.2 H 0.0-0.19 % Chemistry Labs: Test 09/10/24 05:02 09/09/24 03:42 Range/Units Sodium Level 142 136-145 mmol/L Potassium Level 4.5 3.5-5.1 mmol/L Chloride Level 106 101-111 mmol/L Carbon Dioxide Level 31 21-32 mmol/L Blood Urea Nitrogen 28 H 7-18 mg/dL Creatinine 0.4 L 0.5-1.0 mg/dL Glomerular Filtration Rate Calc 106 >90 mL/min Random Glucose 131 H 70-105 mg/dL Total Calcium 8.9 8.5-10.1 mg/dL Phosphorus Level 3.1 2.5-4.9 mg/dL Magnesium Level 1.80 1.80-2.40 mg/dL Total Bilirubin 0.1 #L 0.2-1.0 mg/dL Aspartate Amino Transf (AST/SGOT) 17 10-37 U/L Alanine Aminotransferase (ALT/SGPT) 15 12-78 U/L Alkaline Phosphatase 79 50-136 U/L Total Protein 5.7 L 6.0-8.3 g/dL Albumin 2.9 L 3.5-5.0 g/dL DIAGNOSTICS / RADIOLOGY RESULTS: [ ] PLAN Continue Solu-Medrol 40 mg q8 hrs and wean as tolerated ABX to cover for healthcare associated pneumonia empirically per primary team Given exposure of smoking for many years, patient has a developed COPD with exacerbation. Patient to follow up as outpatient at pulmonary clinic in two weeks for PFTs, we will continue with nebulizer treatments with Duoneb, Pulmicort, steroids. Singulair 10 mg daily Follow respiratory cultures Maintain O2 sats above 88% Gi PPX with protonix due to steroids smoking cessation Influenza a and B negative, COVID-19 negative, Pending CT chest reading We will need to continue to monitor patient closely, give supplemental oxygen as tolerated to keep SaO2 greater than 88%, Nebulizer Duoneb, Pulmicort, Steroids, LVEP: incentive symmetry, Diuretic if appropriate, Antileukotriene agents: montelukast. Antibiotics to cover CAp is appropriate. We will follow along with you. NEURO: Minimize central acting medications as possible. Maintain fall precautions, adequate lighting during the day PULMONARY: Supplemental 02 as needed. Maintain aspiration precautions at all times CARDIOVASCULAR: Follow hemodynamics. Vital signs per facility protocol GI & NUTRITION: Continue with nutritional support. Continue stool softeners and laxatives as needed. KIDNEYS & ELECTROLYTES: Strict monitoring of intake, output and overall fluid balance. Avoid nephrotoxic medications to the extent possible. Medications to be dosed according to renal function. Monitor electrolytes and replace as needed ENDOCRINE: Maintain blood glucose between 100-180 at all times. Hypoglycemia protocol in place INFECTIOUS DISEASE: Trend temperature, WBC and procalcitonin level Follow cultures, deescalate antibiotics as soon as possible. Panculture if new onset fever ONCOLOGY/HEMATOLOGY/COAGULATION: Monitor for s/s of bleeding Monitor hemoglobin, coagulation studies as needed SKIN: Pressure ulcer prevention per facility protocol Specialty mattress ORTHO/REHAB: Continue PT/OT Prophylaxis: Continue GI and DVT prophylaxis Code Status: Full Resuscitation Disposition: TBD Other: Total patient care time exceeds 35 minutes excluding all procedures. XANDER DE LA GARZA September 10, 2024 14:18
--- NOTE | 2024-09-10 15:13 | NUR ---
[facility] SW contacted dgt Yu Valles to gather information on her mom's living situation. Dgt reports that she lives in [place], [place] (close to [place]) and has repeatedly tried to get her mom to stay with her over there however pt will find a way to buy a bus pass and make it [place]. Pt was previously at [facility] in March 2024 under a section the family was able to obtain. Dgt states that pt tends to not want to do what the family recommends and at this time they feel that pt would benefit from a david unit and would like to see if that is a possibly for her. Dgt is also aware that her mom has a "certain lifestyle" however they would be open to explore options
[2024-09-11] VITALS (15 sets, daily range): BP systolic 138–158; BP diastolic 59–84; PULSE 70–96; RESP 16–20; TEMP 97.5–98.6; O2SAT 94–96
[2024-09-11 06:05] LABS: BASOPHILS # (AUTO) 0.01 K/uL (0.00-0.20); BASOPHILS % (AUTO) 0.1 % (0.0-5.0); HEMATOCRIT 31.9 % (36-48); IMMATURE GRANULOCYTE ABSOLUTE 0.09 K/uL (0-1); LYMPHOCYTES % (AUTO) 11.1 % (21.0-51.0); MEAN CORPUSCULAR HEMOGLOBIN 19.9 pg (27.0-33.0); MEAN CORPUSCULAR HGB CONC 28.2 g/dL (32.0-36.0); MEAN CORPUSCULAR VOLUME 70.6 fL (79-99); MONOCYTES # (AUTO) 0.7 K/uL (0.1-1.0); MONOCYTES % (AUTO) 7.8 % (3.0-13.0); NEUTROPHILS # (AUTO) 7.3 K/uL (1.8-7.7); NUCLEATED RED BLOOD CELLS 0.2 % (0.0-0.19); PLATELET COUNT (AUTO) 375 K/uL (130-400); RED BLOOD CELL COUNT(AUTO) 4.52 MIL/uL (4.00-5.50); RED CELL DISTRIBUTION WIDTH 21.6 % (11.0-15.5); WHITE BLOOD COUNT (AUTO) 9.1 K/uL (4.8-10.8)
[2024-09-11 06:14] LABS: CREATININE 0.4 mg/dL (0.5-1.0); POTASSIUM 4.4 mmol/L (3.5-5.1)
[2024-09-11] MEDS: NICOTINE 21 MG/ 24 HR PATCH TD SCH (08:55)
--- NOTE | 2024-09-11 14:23 | NUR ---
DC follow up SW followed up with Ramos Hai to discuss options for DC. Pt stated that he has been told of [facility] in [place] however the space is limited. Pt also reported that she has a tentative place with [facility] [phone] in [place] and only needs a ride to facility. Pt states that she would like to go to one of those locations.
--- NOTE | 2024-09-11 16:04 | PN ---
[facility] PROGRESS NOTE Date of Service: September 11, 2024 Time of Service: 15:56 SUBJECTIVE: 09/08 patient admitted due to chronic hypoxemic and hypercapnic respiratory failure, with COPD exacerbation and suspected acute on chronic diastolic heart failure. The patient has been seen and examined earlier this morning during my rounding, case discussed with the RN, no acute events overnight, during my visit the patient is comfortably in bed, remains on 2 L via nasal cannula, saturating 98%, BP 140/67, heart rate of 90, afebrile, admits mild dry nonproductive cough, she feels less short of breath compared to time of admission, she is getting IV antibiotics. Continue the patient on Solu-Medrol IV, wean as tolerated, continue bronchodilators per RT, continue to follow Pulmonary input and recommendation, CT scan of the chest pending. 09/09 patient seen at bedside, no acute events overnight. She is still has bilateral rhonchus breathing. Patient reports that she is homeless and currently does not have any home medications. She is currently trying to get assistance obtaining help with [employer] and a home in [place]. She does have social security, Medicare and reports she is on disability so she does have some income. Case management will assist her for final placement. She does continue to smoke which likely is contributing to her COPD. We will continue with nebulizer treatments and systemic steroids and follow up with pulmonology. 09/10 patient seen at bedside, no acute events overnight. Patient needing placement, she has underlying psych issues with reported hallucinations concerning for schizophrenia. Reviewing her external medications does not show any medications consistent with such a diagnosis. Case management reaching out to her daughter, who lives in [place], for further guidance regarding placement as patient is currently homeless and does not have a social support here. She reportedly had an apartment in [place] near her daughter but bought a bus ticket to [place] for unknown reasons. 09/11 patient seen at bedside, no acute events overnight. Discontinue methylprednisone and start a seven day course of prednisone 40 mg daily. Vitals and labs are relatively unremarkable, she is pending placement, we will follow up with case management. REVIEW OF SYSTEMS 12 point review of systems negative unless noted in HPI PHYSICAL EXAM GENERAL APPEARANCE: The patient is awake, alert, and oriented, in no acute cardiopulmonary distress. NEUROLOGICAL: Cranial nerves II-XII grossly intact. Motor is 5/5 in bilateral upper and lower extremities proximal to distal. No sensory deficits. HEENT: Face is symmetric. Pupils are equal and reactive. Extraocular movements are intact. NECK: Supple. No JVD. No thyromegaly. No submental, submandibular, pre- /postauricular, occipital or supraclavicular lymphadenopathy. CHEST: Normal chest expansion. No Telemetry. LUNGS: Wheezing noted bilaterally with rhonchorous breath sounds that clears with cough CARDIOVASCULAR: Regular. S1 and S2 normal. No appreciable rubs, murmurs or gallops. ABDOMEN: Soft, nontender, and nondistended. There is no rebound, voluntary guarding, or rigidity. : Deferred. No Estrada. EXTREMITIES: Non-edematous and not cyanotic. No clubbing. Good capillary refill. SKIN: No skin breakdown. Vital Signs (last 8hr) Date Time Temp Pulse Resp B/P (MAP) Pulse Ox O2 Delivery O2 Flow Rate FiO2 09/11/24 11:34 98.4 70 20 151/67 98 Room Air 09/11/24 11:25 96 Room Air* 0 21 09/11/24 11:06 92 18 LABS: Laboratory: Test 09/11/24 05:50 09/10/24 05:02 Range/Units White Blood Count 9.1 4.8-10.8 K/uL Red Blood Count 4.52 4.00-5.50 MIL/uL Hemoglobin 9.0 L 12.0-16.0 g/dL Hematocrit 31.9 L 36-48 % Mean Corpuscular Volume 70.6 L 79-99 fL Mean Corpuscular Hemoglobin 19.9 L 27.0-33.0 pg Mean Corpuscular Hemoglobin Concent 28.2 L 32.0-36.0 g/dL Red Cell Distribution Width 21.6 H 11.0-15.5 % Platelet Count 375 130-400 K/uL Mean Platelet Volume 9.6 7.5-10.5 fL Immature Granulocyte % (Auto) 1.0 0-1 % Neutrophils (%) (Auto) 80.0 H 40.0-77.0 % Lymphocytes (%) (Auto) 11.1 L 21.0-51.0 % Monocytes (%) (Auto) 7.8 3.0-13.0 % Eosinophils (%) (Auto) 0.0 0.0-8.0 % Basophils (%) (Auto) 0.1 0.0-5.0 % Neutrophils # (Auto) 7.3 1.8-7.7 K/uL Lymphocytes # (Auto) 1.0 1.0-4.8 K/uL Monocytes # (Auto) 0.7 0.1-1.0 K/uL Eosinophils # (Auto) 0.00 0.00-0.70 K/uL Basophils # (Auto) 0.01 0.00-0.20 K/uL Absolute Immature Granulocyte (auto 0.09 0-1 K/uL Nucleated Red Blood Cells 0.2 H 0.0-0.19 % Sodium Level 142 136-145 mmol/L Potassium Level 4.4 3.5-5.1 mmol/L Chloride Level 106 101-111 mmol/L Carbon Dioxide Level 30 21-32 mmol/L Blood Urea Nitrogen 30 H 7-18 mg/dL Creatinine 0.4 L 0.5-1.0 mg/dL Glomerular Filtration Rate Calc 106 >90 mL/min Random Glucose 127 H 70-105 mg/dL Total Calcium 8.4 L 8.5-10.1 mg/dL Phosphorus Level 3.1 2.5-4.9 mg/dL Magnesium Level 1.80 1.80-2.40 mg/dL Current Medications Medications (Trade) Dose Ordered Sig/Jo Route PRN Reason Start Time Stop Time Status Last Admin Dose Admin Acetaminophen (TYLenol 325MG TAB) 650 mg Q6H PRN PO MILD PAIN (1-3) 09/07/24 10:00 10/07/24 09:59 09/10/24 12:21 650 MG Albuterol (DUOneb) 1 udvial [id number] IH 09/07/24 12:00 10/07/24 11:59 09/11/24 11:06 1 UDVIAL Amlodipine Besylate (NorvASC 5MG TAB) 5 mg DAILY PO 09/08/24 09:00 09/09/24 19:41 DC 09/09/24 09:31 5 MG Amlodipine Besylate (NorvASC 5MG TAB) 10 mg DAILY PO 09/10/24 09:00 10/10/24 08:59 09/11/24 08:55 10 MG Budesonide (Pulmicort 0.5 Mg/2ml) 0.5 mg BIDRESP IH 09/07/24 10:00 10/07/24 09:59 09/11/24 06:28 0.5 MG Cefepime HCl (MAXipime 1 GM vial) 1 gm Q8H IVPB 09/07/24 10:00 09/17/24 09:59 09/11/24 09:14 1 GM Doxycycline Hyclate (Doxycycline Hyclate) 100 mg BID PO 09/07/24 21:00 09/17/24 20:59 09/11/24 08:55 100 MG Enoxaparin Sodium (Lovenox) 30 mg DAILY SQ 09/08/24 09:00 10/08/24 08:59 09/11/24 08:56 30 MG Guaifenesin/ Dextromethorphan (RobiTUSSin DM 200/20MG 10ML) 10 ml Q6H PRN PO COUGH 09/07/24 10:30 10/07/24 10:29 09/10/24 08:18 10 ML Hydralazine HCl (APRESOLine 20MG INJ) 5 mg Q6H PRN IV ADMINISTER FOR SBP > 160 09/07/24 10:30 10/07/24 10:29 Losartan Potassium (CozAAR 50 mg TAB) 50 mg BID PO 09/09/24 21:00 10/09/24 20:59 09/11/24 08:55 50 MG Magnesium Sulfate 50 ml @ 0 mls/hr PROTOCOL IV 09/07/24 10:00 10/07/24 09:59 09/08/24 12:46 25 MLS/HR Methylprednisolone Sodium Succinate (Solu-medROL 40MG) 40 mg Q8H IVP 09/07/24 12:00 10/07/24 11:59 09/11/24 12:51 40 MG Montelukast Sodium (SinguLAIR) 10 mg DAILY PO 09/08/24 09:00 10/08/24 08:59 09/11/24 08:55 10 MG Multivitamins Therapeutic (Multivitamin Tablet) 1 tab DAILY PO 09/08/24 09:00 10/08/24 08:59 09/11/24 08:55 1 TAB Nicotine (Nicoderm) 7 mg DAILY PRN TD NICOTINE WITHDRAWAL 09/08/24 12:00 09/10/24 11:10 DC 09/10/24 08:18 7 MG Nicotine (Nicoderm) 21 mg DAILY TD 09/11/24 09:00 10/11/24 08:59 09/11/24 08:55 21 MG Pantoprazole Sodium (PROTonix 40MG INJ) 40 mg Q24H IVP 09/07/24 10:00 10/07/24 09:59 09/11/24 08:54 40 MG Potassium Chloride 100 ml @ 100 mls/hr AD PRN IV POTASSIUM PROTOCOL 09/07/24 10:00 10/07/24 09:59 Potassium Chloride (K-Dur/Klor-Con 20meq) 20 meq AD PRN PO POTASSIUM PROTOCOL 09/07/24 10:00 10/07/24 09:59 09/07/24 12:09 20 MEQ Potassium Chloride (KCl 10% Elixir 20meq/15ml) 20 meq AD PRN PO POTASSIUM PROTOCOL 09/07/24 10:00 10/07/24 09:59 Thiamine HCl (Vitamin B-1) 100 mg Q24H IVP 09/07/24 10:00 10/07/24 09:59 09/11/24 08:55 100 MG DIAGNOSTICS / RADIOLOGY: [ ] ASSESSMENT: Acute on Chronic COPD exacerbation, POA Acute on chronic hypoxemic respiratory failure, POA History of chronic hypercapnic respiratory failure secondary to underlying COPD, POA Medical noncompliance, POA History of continued tobacco use disorder, POA Pulmonary hypertension likely secondary to advanced COPD, POA Underlying history of severe tricuspid regurgitation, POA History of hypertension, POA Anemia, POA Hypokalemia, POA Frailty, POA PLAN: Patient to cardiac telemetry floor Continue with supplemental O2 therapy to maintain oxygen saturation greater than 89% Discontinue Solu-Medrol Start prednisone 40 mg daily for seven days We will start patient on scheduled Pulmicort and nebulizers Broad-spectrum antibiotics with IV cefepime/doxycycline, respiratory cultures will be obtained Consultation with pulmonology will be requested We will follow up CT chest without contrast, BNP is minimally elevated secondary to underlying severe tricuspid regurgitation, patient on 2D echocardiogram for 09/05/2024 had PASP of 62 with right ventricular dilation and concerns for pulmonary hypertension We will try to obtain home medication list once available Case management consultation will be requested Monitor closely for respiratory acidosis Electrolytes will be repleted per protocol All labs will be repeated in the morning Patient will be placed on a nicotine patch, discussed with patient about quitting smoking, patient stated that she would think about it Disposition: Pending placement ADELAIDA MALDONADO MD September 11, 2024 16:03
--- NOTE | 2024-09-11 18:04 | PN ---
[facility] PROGRESS NOTE Date Patient Seen: September 11, 2024 Time of Visit: 18:57 Supervising Physician: [Dr. Mtz] Supervising Physician: Dr. Allison Ring Primary Care Physician: Self Referral Outpatient Specialists: [ ] Inpatient Consults: [facility] Attending: Philipp Jeter MD PROBLEM LIST: Chronic hypoxemic and hypercapnic respiratory failure, POA on O2 Suspected acute on chronic diastolic heart failure with EF of 55-60% Suspected severe pulmonary hypertension with RVSP of 62 mm Hg on 2D echo 09/05/24 COPD exacerbation, POA Emphysema Leukocytosis Thrombocytosis Hypokalemia Heavy tobacco abuse Homelessness Glucosuria Cardiomegaly History of severe tricuspid regurgitation Cachexia Plan Summary: Dispo per primary Start prednisone 40mg daily ABX to cover for healthcare associated pneumonia empirically per primary team Given exposure of smoking for many years, patient has a developed COPD with exacerbation. Patient to follow up as outpatient at pulmonary clinic in two weeks for PFTs, we will continue with nebulizer treatments with Duoneb, Pulmicort, steroids. Singulair 10 mg daily Follow respiratory cultures Maintain O2 sats above 88% Gi PPX with protonix due to steroids smoking cessation Influenza a and B negative, COVID-19 negative, INTERVAL HISTORY: Patient was evaluated at bedside, remains on room air today. Patient endorses a cough for which she has been vacation in her chart PRN. Smoking cessation was discussed with the patient today, nursing staff reports there was an event in which the patient attempted to smoke a cigarette in her hospital room. Patient continues with coarse crackles on auscultation bilaterally, continue nebulizer treatments, continue antibiotic therapy, continue Solu-Medrol. Patient requested nicotine patch to be upgraded, currently the 21 mg today. Dispo per primary, case management working on placement for the patient as her current status is homeless. Case management will also work on getting any records from her previous admission to [facility] in order to start the patient on any psychiatric medications she may require and might benefit her during this admission. 09/11 Patient is evaluated at bedside. Her respiratory status is much improved. Lungs are clear to auscultation without any wheezing. blood cultures are negativ e, sputum culture shows Meagan. Continues on IV antibiotics. CT shows emphysema without any acute infiltrates. She continues on nebulizer and IV steroids. She is cleared from pulmonary standpoint for discharge. Pending discharge per primary. REVIEW OF SYSTEMS: Const: [no fever, fatigue, or weight changes] Eyes:[ no recent vision problems] ENT: [No congestion, ear pain, or sore throat] C/V: [no chest pain, palpitations or edema] Resp: [yes to occasional cough and sob GI: [No abdominal pain, nausea, vomiting, constipation, or diarrhea] : [No incontinence of or dyuria] M/S: [No joint or pain swelling] Skin: [No rash] Neuro: [no headache, focal numbness, or weakness, dizziness or seizures] Psych: [no depression or anxiety] Heme: [no abnormal bruising or bleeding] Lymph: [no swollen glands] PHYSICAL EXAM: GENERAL: alert, weak, awake oriented x 3 HEENT: EOMI, Sclera non icteric, moist mucosa NECK: Supple, no JVD, trachea midline LUNGS: Diminished to all lobes. No wheezes HEART: Regular rate and rhythm. Normal S1 and S2, without murmurs ABD: Abdomen soft, nontender. Bowel sounds present EXT: No clubbing cyanosis or edema NEURO: Alert and oriented to person, follows commands Vital Signs (last 8hr) Date Time Temp Pulse Resp B/P (MAP) Pulse Ox O2 Delivery O2 Flow Rate FiO2 09/11/24 17:23 98.2 90 20 158/64 98 Room Air 09/11/24 11:34 98.4 70 20 151/67 98 Room Air 09/11/24 11:25 96 Room Air* 0 21 09/11/24 11:06 92 18 LABS: Hematology Labs: Test 09/11/24 05:50 Range/Units White Blood Count 9.1 4.8-10.8 K/uL Red Blood Count 4.52 4.00-5.50 MIL/uL Hemoglobin 9.0 L 12.0-16.0 g/dL Hematocrit 31.9 L 36-48 % Mean Corpuscular Volume 70.6 L 79-99 fL Mean Corpuscular Hemoglobin 19.9 L 27.0-33.0 pg Mean Corpuscular Hemoglobin Concent 28.2 L 32.0-36.0 g/dL Red Cell Distribution Width 21.6 H 11.0-15.5 % Platelet Count 375 130-400 K/uL Mean Platelet Volume 9.6 7.5-10.5 fL Immature Granulocyte % (Auto) 1.0 0-1 % Neutrophils (%) (Auto) 80.0 H 40.0-77.0 % Lymphocytes (%) (Auto) 11.1 L 21.0-51.0 % Monocytes (%) (Auto) 7.8 3.0-13.0 % Eosinophils (%) (Auto) 0.0 0.0-8.0 % Basophils (%) (Auto) 0.1 0.0-5.0 % Neutrophils # (Auto) 7.3 1.8-7.7 K/uL Lymphocytes # (Auto) 1.0 1.0-4.8 K/uL Monocytes # (Auto) 0.7 0.1-1.0 K/uL Eosinophils # (Auto) 0.00 0.00-0.70 K/uL Basophils # (Auto) 0.01 0.00-0.20 K/uL Absolute Immature Granulocyte (auto 0.09 0-1 K/uL Nucleated Red Blood Cells 0.2 H 0.0-0.19 % Chemistry Labs: Test 09/11/24 05:50 09/10/24 05:02 Range/Units Sodium Level 142 136-145 mmol/L Potassium Level 4.4 3.5-5.1 mmol/L Chloride Level 106 101-111 mmol/L Carbon Dioxide Level 30 21-32 mmol/L Blood Urea Nitrogen 30 H 7-18 mg/dL Creatinine 0.4 L 0.5-1.0 mg/dL Glomerular Filtration Rate Calc 106 >90 mL/min Random Glucose 127 H 70-105 mg/dL Total Calcium 8.4 L 8.5-10.1 mg/dL Phosphorus Level 3.1 2.5-4.9 mg/dL Magnesium Level 1.80 1.80-2.40 mg/dL DIAGNOSTICS / RADIOLOGY RESULTS: [ ] PLAN Start prednisone 40mg daily ABX to cover for healthcare associated pneumonia empirically per primary team Given exposure of smoking for many years, patient has a developed COPD with exacerbation. Patient to follow up as outpatient at pulmonary clinic in two weeks for PFTs, we will continue with nebulizer treatments with Duoneb, Pulmicort, steroids. Singulair 10 mg daily Follow respiratory cultures Maintain O2 sats above 88% Gi PPX with protonix due to steroids smoking cessation Influenza a and B negative, COVID-19 negative, We will need to continue to monitor patient closely, give supplemental oxygen as tolerated to keep SaO2 greater than 88%, Nebulizer Duoneb, Pulmicort, Steroids, LVEP: incentive symmetry, Diuretic if appropriate, Antileukotriene agents: montelukast. Antibiotics to cover CAp is appropriate. We will follow along with you. NEURO: Minimize central acting medications as possible. Maintain fall precautions, adequate lighting during the day PULMONARY: Supplemental 02 as needed. Maintain aspiration precautions at all times CARDIOVASCULAR: Follow hemodynamics. Vital signs per facility protocol GI & NUTRITION: Continue with nutritional support. Continue stool softeners and laxatives as needed. KIDNEYS & ELECTROLYTES: Strict monitoring of intake, output and overall fluid balance. Avoid nephrotoxic medications to the extent possible. Medications to be dosed according to renal function. Monitor electrolytes and replace as needed ENDOCRINE: Maintain blood glucose between 100-180 at all times. Hypoglycemia protocol in place INFECTIOUS DISEASE: Trend temperature, WBC and procalcitonin level Follow cultures, deescalate antibiotics as soon as possible. Panculture if new onset fever ONCOLOGY/HEMATOLOGY/COAGULATION: Monitor for s/s of bleeding Monitor hemoglobin, coagulation studies as needed SKIN: Pressure ulcer prevention per facility protocol Specialty mattress ORTHO/REHAB: Continue PT/OT Prophylaxis: Continue GI and DVT prophylaxis Code Status: Full Resuscitation Disposition: TBD Other: Total patient care time exceeds 35 minutes excluding all procedures. ABIGAIL MUÑOZ September 11, 2024 18:04
[2024-09-12] VITALS (8 sets, daily range): BP systolic 141–144; BP diastolic 52–72; PULSE 74–94; RESP 16–20; TEMP 98.1–98.6; O2SAT 92–99
[2024-09-12 05:17] LABS: BASOPHILS # (AUTO) 0.02 K/uL (0.00-0.20); BASOPHILS % (AUTO) 0.2 % (0.0-5.0); EOSINOPHILS # (AUTO) 0.01 K/uL (0.00-0.70); EOSINOPHILS % (AUTO) 0.1 % (0.0-8.0); HEMATOCRIT 33.9 % (36-48); IMMATURE GRANULOCYTE ABSOLUTE 0.19 K/uL (0-1); LYMPHOCYTES # (AUTO) 1.8 K/uL (1.0-4.8); LYMPHOCYTES % (AUTO) 17.3 % (21.0-51.0); MEAN CORPUSCULAR HEMOGLOBIN 19.5 pg (27.0-33.0); MEAN CORPUSCULAR HGB CONC 27.4 g/dL (32.0-36.0); MEAN CORPUSCULAR VOLUME 70.9 fL (79-99); MONOCYTES # (AUTO) 1.4 K/uL (0.1-1.0); MONOCYTES % (AUTO) 13.8 % (3.0-13.0); NEUTROPHILS # (AUTO) 6.9 K/uL (1.8-7.7); NEUTROPHILS % (AUTO) 66.7 % (40.0-77.0); NUCLEATED RED BLOOD CELLS 0.2 % (0.0-0.19); PLATELET COUNT (AUTO) 371 K/uL (130-400); RED BLOOD CELL COUNT(AUTO) 4.78 MIL/uL (4.00-5.50); RED CELL DISTRIBUTION WIDTH 21.6 % (11.0-15.5); WHITE BLOOD COUNT (AUTO) 10.3 K/uL (4.8-10.8)
[2024-09-12 05:35] LABS: CREATININE 0.4 mg/dL (0.5-1.0); POTASSIUM 3.6 mmol/L (3.5-5.1)
[2024-09-12] MEDS: predniSONE 20 MG TABLET PO SCH (09:31)
[2024-09-12] MEDS: PoTASSium chl 10% ELIXIR 20MEQ 20 MEQ/15 ML UDCUP PO PRN (09:45)
--- NOTE | 2024-09-12 12:13 | PN ---
[facility] PROGRESS NOTE Date Patient Seen: September 12, 2024 Time of Visit: 12:13 Supervising Physician: [Dr. Mtz] Primary Care Physician: Self Referral Outpatient Specialists: [ ] Inpatient Consults: CATALINO Attending: Philipp Jeter MD PROBLEM LIST: Chronic hypoxemic and hypercapnic respiratory failure, POA on O2 Acute on chronic diastolic heart failure with EF of 55-60% Severe pulmonary hypertension with RVSP of 62 mm Hg on 2D echo 09/05/24 COPD exacerbation, POA resolved Emphysema Leukocytosis Thrombocytosis Hypokalemia Heavy tobacco abuse Homelessness Glucosuria Cardiomegaly History of severe tricuspid regurgitation Cachexia Plan Summary: Dispo per primary Continue prednisone 40mg daily ABX to cover for healthcare associated pneumonia empirically per primary team Given exposure of smoking for many years, patient has a developed COPD with exacerbation. Patient to follow up as outpatient at pulmonary clinic in two weeks for PFTs, we will continue with nebulizer treatments with Duoneb, Pulmicort, steroids. Singulair 10 mg daily Follow respiratory cultures Maintain O2 sats above 88% Gi PPX with protonix due to steroids smoking cessation Influenza a and B negative, COVID-19 negative, INTERVAL HISTORY: Patient was evaluated at bedside, remains on room air today. Patient endorses a cough for which she has been vacation in her chart PRN. Smoking cessation was discussed with the patient today, nursing staff reports there was an event in which the patient attempted to smoke a cigarette in her hospital room. Patient continues with coarse crackles on auscultation bilaterally, continue nebulizer treatments, continue antibiotic therapy, continue Solu-Medrol. Patient requested nicotine patch to be upgraded, currently the 21 mg today. Dispo per primary, case management working on placement for the patient as her current status is homeless. Case management will also work on getting any records from her previous admission to [facility] in order to start the patient on any psychiatric medications she may require and might benefit her during this admission. 09/11 Patient is evaluated at bedside. Her respiratory status is much improved. Lungs are clear to auscultation without any wheezing. blood cultures are negative, sputum culture shows Meagan. Continues on IV antibiotics. CT shows emphysema without any acute infiltrates. She continues on nebulizer and IV steroids. She is cleared from pulmonary standpoint for discharge. Pending discharge per primary. 09/12 patient is evaluated at bedside. Her vitals were within normal limits, she is weaned off supplemental oxygen to room air. Continues on oral prednisone. Labs including CBC and BMP are unremarkable. She is feeling improved from admission, pending discharge today per primary. REVIEW OF SYSTEMS: Const: [no fever, fatigue, or weight changes] Eyes:[ no recent vision problems] ENT: [No congestion, ear pain, or sore throat] C/V: [no chest pain, palpitations or edema] Resp: [yes to occasional cough and sob GI: [No abdominal pain, nausea, vomiting, constipation, or diarrhea] : [No incontinence of or dyuria] M/S: [No joint or pain swelling] Skin: [No rash] Neuro: [no headache, focal numbness, or weakness, dizziness or seizures] Psych: [no depression or anxiety] Heme: [no abnormal bruising or bleeding] Lymph: [no swollen glands] PHYSICAL EXAM: GENERAL: alert, weak, awake oriented x 3 HEENT: EOMI, Sclera non icteric, moist mucosa NECK: Supple, no JVD, trachea midline LUNGS: Diminished to all lobes. No wheezes HEART: Regular rate and rhythm. Normal S1 and S2, without murmurs ABD: Abdomen soft, nontender. Bowel sounds present EXT: No clubbing cyanosis or edema NEURO: Alert and oriented to person, follows commands Vital Signs (last 8hr) Date Time Temp Pulse Resp B/P (MAP) Pulse Ox O2 Delivery O2 Flow Rate FiO2 09/12/24 11:08 78 20 09/12/24 11:07 78 20 N/A Room Air 21 09/12/24 11:06 98.6 74 20 141/72 100 Room Air 09/12/24 09:30 99 Room Air* 0 21 09/12/24 07:57 98.4 76 20 143/71 99 Room Air 09/12/24 06:58 94 20 09/12/24 06:57 94 20 N/A Room Air 21 LABS: Hematology Labs: Test 09/12/24 04:39 Range/Units White Blood Count 10.3 4.8-10.8 K/uL Red Blood Count 4.78 4.00-5.50 MIL/uL Hemoglobin 9.3 L 12.0-16.0 g/dL Hematocrit 33.9 L 36-48 % Mean Corpuscular Volume 70.9 L 79-99 fL Mean Corpuscular Hemoglobin 19.5 L 27.0-33.0 pg Mean Corpuscular Hemoglobin Concent 27.4 L 32.0-36.0 g/dL Red Cell Distribution Width 21.6 H 11.0-15.5 % Platelet Count 371 130-400 K/uL Mean Platelet Volume 9.4 7.5-10.5 fL Immature Granulocyte % (Auto) 1.9 H 0-1 % Neutrophils (%) (Auto) 66.7 40.0-77.0 % Lymphocytes (%) (Auto) 17.3 L 21.0-51.0 % Monocytes (%) (Auto) 13.8 H 3.0-13.0 % Eosinophils (%) (Auto) 0.1 0.0-8.0 % Basophils (%) (Auto) 0.2 0.0-5.0 % Neutrophils # (Auto) 6.9 1.8-7.7 K/uL Lymphocytes # (Auto) 1.8 1.0-4.8 K/uL Monocytes # (Auto) 1.4 H 0.1-1.0 K/uL Eosinophils # (Auto) 0.01 0.00-0.70 K/uL Basophils # (Auto) 0.02 0.00-0.20 K/uL Absolute Immature Granulocyte (auto 0.19 0-1 K/uL Nucleated Red Blood Cells 0.2 H 0.0-0.19 % Red Blood Cell Morphology See comments Chemistry Labs: Test 09/12/24 04:39 Range/Units Sodium Level 146 H 136-145 mmol/L Potassium Level 3.6 3.5-5.1 mmol/L Chloride Level 106 101-111 mmol/L Carbon Dioxide Level 29 21-32 mmol/L Blood Urea Nitrogen 37 H 7-18 mg/dL Creatinine 0.4 L 0.5-1.0 mg/dL Glomerular Filtration Rate Calc 106 >90 mL/min Random Glucose 126 H 70-105 mg/dL Total Calcium 8.2 L 8.5-10.1 mg/dL DIAGNOSTICS / RADIOLOGY RESULTS: [ ] PLAN Continue prednisone 40mg daily upon discharge ABX to cover for healthcare associated pneumonia empirically per primary team Given exposure of smoking for many years, patient has a developed COPD with exacerbation. Patient to follow up as outpatient at pulmonary clinic in two weeks for PFTs, we will continue with nebulizer treatments with Duoneb, Pulmicort, steroids. Singulair 10 mg daily Follow respiratory cultures Maintain O2 sats above 88% Gi PPX with protonix due to steroids smoking cessation Influenza a and B negative, COVID-19 negative, We will need to continue to monitor patient closely, give supplemental oxygen as tolerated to keep SaO2 greater than 88%, Nebulizer Duoneb, Pulmicort, Steroids, LVEP: incentive symmetry, Diuretic if appropriate, Antileukotriene agents: montelukast. Antibiotics to cover CAp is appropriate. We will follow along with you. NEURO: Minimize central acting medications as possible. Maintain fall precautions, adequate lighting during the day PULMONARY: Supplemental 02 as needed. Maintain aspiration precautions at all times CARDIOVASCULAR: Follow hemodynamics. Vital signs per facility protocol GI & NUTRITION: Continue with nutritional support. Continue stool softeners and laxatives as needed. KIDNEYS & ELECTROLYTES: Strict monitoring of intake, output and overall fluid balance. Avoid nephrotoxic medications to the extent possible. Medications to be dosed according to renal function. Monitor electrolytes and replace as needed ENDOCRINE: Maintain blood glucose between 100-180 at all times. Hypoglycemia protocol in place INFECTIOUS DISEASE: Trend temperature, WBC and procalcitonin level Follow cultures, deescalate antibiotics as soon as possible. Panculture if new onset fever ONCOLOGY/HEMATOLOGY/COAGULATION: Monitor for s/s of bleeding Monitor hemoglobin, coagulation studies as needed SKIN: Pressure ulcer prevention per facility protocol Specialty mattress ORTHO/REHAB: Continue PT/OT Prophylaxis: Continue GI and DVT prophylaxis Code Status: Full Resuscitation Disposition: TBD Other: Total patient care time exceeds 35 minutes excluding all procedures. ABIGAIL MUÑOZ September 12, 2024 12:13
[2024-09-12] MEDS ORDERED: MONT-46 PO (12:53)
[2024-09-12] MEDS ORDERED: PRED20B PO (12:53)
[2024-09-12] MEDS ORDERED: BUDE10.26 IH (12:53)
[2024-09-12] MEDS ORDERED: LOSA-418 PO (12:53)
[2024-09-12] MEDS ORDERED: AMLO5TAB4 PO (12:53)
[2024-09-12] MEDS ORDERED: ALBUHFA IH (12:53)
--- NOTE | 2024-09-12 13:59 | NUR ---
[facility]LY [facility], LATER [facility] Per nursing home, they are only accepting pts from [place]. Carmencita DINERO made aware
--- NOTE | 2024-09-12 14:43 | NUR ---
CM NOTE CM spoke to patient regarding d/c planning. Patient clarified that she does not have housing secured at [facility]. Reports she is willing to pay for rent while housing application is completed. CM explained that placement at a homeless longterm was attempted. Per Mana with [facility], [facility] has denied patient due to having exhausted all "wrap around services". Reports patient was under [employer] program and had rent paid. Also states patient receives a check and has VA benefits. Per Stacy MÉNDEZ at [facility] [place], [facility] is not able to accept patient. Patient updated with longterm denials. States she is willing to go to extended stay [facility] [phone]. HS notified of pending need for transportation to hotel. Primary nurse updated with above plan. CM director assisting with obtaining prescriptions and clothing for discharge. Patient also provided correct phone number for [facility] [phone] for f/u. CM advised patient to call tomorrow regarding housing assistance. Patient verbalized understanding. No other needs verbalized. Primary nurse and Dr. Rizo updated with above.
--- NOTE | 2024-09-12 17:54 | NUR ---
Discharge needs Picked up 6 prescriptions from [facility] in [place], [place] on [address]. Meds are as follows: Symbicort RX#: [id number], Losartan RX#: [id number], Amlodipine RX#: [id number], Albuterol HFA RX#: [id number], Prednisone RX#: [id number], Montelukast RX#: [id number] Each medication was in it's own bag stapled by [facility]. Patient verified each medication bag and signed a Change of Custody form acknowledging receipt of the above medications from this . Patient also stated needed clothes. A pair of clothes donated to patient. Updated nurse that medications have been handed off.
--- NOTE | 2024-09-12 18:23 | NUR ---
DISCHARGE Patient ready for discharge. Plan for discharge to [facility] in [place] per . Milagros delivered patient prescription medications to patient in room. Patient provided discharge instructions and all questions answered. All belongings delivered to patient from security. Patient provided clothes from . Patient IV removed. Patient discharged with Selene carlos per [employer] with all belongings.
--- NOTE | 2024-09-12 19:21 | DS ---
Discharge Summary Hospital Course Summary: 69-year-old female with underlying history of COPD, pulmonary hypertension, history of severe tricuspid regurgitation, tobacco use disorder who presented to the ER for further evaluation of progressive worsening of shortness of breath with associated wheezing and cough and phlegm production. Patient reports that she is homeless, and has trouble affording home medications. She is usually on 2 L of home O2 therapy. Reports feeling tired, fatigue and increasingly sleepy. She continues to smoke about a pack a day and reports having issues with generalized anxiety. She denies significant alcohol use. Reports having subjective fevers, chills and malaise Patient was recently hospitalized in [facility] on 09/05/2024 he was found to have acute on chronic COPD exacerbation patient left against medical advise on 09/05/2024 and she is coming back to the ER for progressively worsening symptoms. She was admitted for COPD exacerbation, started on systemic steroids, nebulizers, empiric antibiotics. After three days she was back to baseline and ready for discharge, given her homeless status case management was consulted for placement. Her options were limited as she has been voluntarily homeless and many locations we will not accept her. She does receive a monthly chip due to her social security and benefits and she opted to stay at a [facility] while trying to get an apartment sorted with social services manager. On hospital day six she was evaluated as stable and ready for discharge. Case management retrieved her discharge medications and she was discharged. . Bander Hand(s): Pulmonology Procedure(s): CT NONCONTRAST CHEST Comparison Study: none History: acute on chronic COPD exacerbation, r/o any developing pneumonia Technique: Helical CT of the chest without IV contrast at 5 mm collimation. Coronal and sagittal reformations also done. CT Dose Index (CTDI): 2.38 mGy Dose Length Product (DLP): 94.8 total mGy-cm Findings: The airway is intact. The trachea and major bronchi are unremarkable. The chest exam shows no pulmonary nodules or masses. Centrilobular emphysema is seen particularly involving the apices. No pulmonary infiltrates or mass lesions are seen. No pleural effusions are identified. There is no pneumothorax. There is no evidence of pneumomediastinum. The nonenhanced exam of the zhou and mediastinum is unremarkable. No evidence of hilar enlargement is seen. The aorta shows no aneurysmal dilatation or significant atheromatous calcification. No significant brachiocephalic vascular abnormalities are seen. The heart is unremarkable. It is not enlarged. No significant coronary arterial calcifications are seen. There is no pericardial effusion. The rib cage appears unremarkable. The soft tissues of the chest wall are unremarkable. The dorsal spine shows no significant abnormalities. IMPRESSION: Centrilobular emphysema. No pneumonic infiltrates. This study was performed using dose reduction techniques to include automated exposure control and/or adjustment of the mA and/or kV according to patient size. Exam Type: CHEST 1VW Clinical Information: SOB Comparison: None Findings: The lungs are clear of infiltrates. The heart is enlarged. Bony and soft tissue structures of the chest wall are unremarkable. IMPRESSION: Cardiomegaly. Clear lungs. Assessment/Plan: : Acute on Chronic COPD exacerbation, POA Acute on chronic hypoxemic respiratory failure, POA History of chronic hypercapnic respiratory failure secondary to underlying COPD, POA Medical noncompliance, POA History of continued tobacco use disorder, POA Pulmonary hypertension likely secondary to advanced COPD, POA Underlying history of severe tricuspid regurgitation, POA History of hypertension, POA Anemia, POA Hypokalemia, POA Frailty, POA Discharge Instructions: Follow up with PCP in 3-7 days Follow up with senior energy analyst in 1-2 weeks Home Medications: Active Scripts Albuterol Sulfate (Ventolin Hfa/Proventil Hfa/Proair Hfa) 90 Mcg Puff, 2 PUFF IH Q4HPRN PRN for wheezing for 30 Days, #18 GM 0 Refills Prov:ADELAIDA MALDONADO MD 09/12/24 Budesonide/Formoterol Fumarate (Budesonide-Formoterol 160-4.5) 160 Mcg-4.5 Mcg/Actuation Hfa.aer.ad, 2 PUFF IH BID for 30 Days, #10.2 GM 0 Refills Prov:ADELAIDA MALDONADO MD 09/12/24 Prednisone (Deltasone/Orasone [Bulk]) 20 Mg Tab, 40 MG PO DAILY, #7 TAB Prov:ADELAIDA MALDONADO MD 09/12/24 Montelukast Sodium (Singulair 10Mg) 10 Mg Tab, 10 MG PO DAILY, #30 TAB 0 Refills Prov:ADELAIDA MALDONADO MD 09/12/24 Losartan Potassium (Cozaar) 50 Mg Tablet, 50 MG PO BID, #60 TAB 0 Refills Prov:ADELAIDA MALDONADO MD 09/12/24 Amlodipine Besylate (Norvasc 5Mg Tab) 5 Mg Tablet, 10 MG PO DAILY, #30 TAB Prov:ADELAIDA MALDONADO MD 09/12/24 Discontinued Scripts Permethrin (Lice Treatment) 1 % Liquid, 59 ML TP ONCE, #2 TUBE 0 Refills Prov:BEVERLY NOLAN CYBER SECURITY SPECIALIST 03/26/24 Guaifenesin/Dextromethorphan (Guaifenesin Dm Syrup) 100 Mg-10 Mg/5 Ml Syrup, 5 ML PO q6 hours PRN, #237 ML 0 Refills Prov:NICKIE ROSSI NP 11/23/23 Levofloxacin (Levofloxacin) 500 Mg Tablet, 500 MG PO DAILY for 7 Days, #7 TAB Prov:ADELAIDA MALDONADO MD 11/24/21 Prednisone (Prednisone) 20 Mg Tablet, 40 MG PO DAILYBKFST for 7 Days, #14 TAB Prov:ADELAIDA MALDONADO MD 11/24/21 Albuterol Sulfate (Proventil Hfa) 6.7 Gm Hfa.aer.ad, 6.7 GM IH Q4HPRN PRN for SHORTNESS OF BREATH/WHEEZING for 30 Days, #1 INHALER 3 Refills Prov:ADELAIDA MALDONADO MD 11/24/21 Lisinopril (Lisinopril) 40 Mg Tablet, 40 MG PO DAILY, #30 TAB 0 Refills Prov:ADELAIDA MALDONADO MD 11/24/21 Cyclobenzaprine HCl (Cyclobenzaprine HCl) 10 Mg Tablet, 10 MG PO BID PRN for PAIN LEVEL 6 TO 10 for 7 Days, #15 TAB dont take while driving or operating machinery Prov:ABDIAZIZ MARSHALL MD 02/17/21 Ibuprofen (Advil) 200 Mg Tablet, 600 MG PO Q6HPRN PRN for PAIN LEVEL 1 TO 5 for 7 Days, #30 TAB 0 Refills take with food Prov:ABDIAZIZ MARSHALL MD 02/17/21 New Medications: Albuterol Sulfate (Ventolin Hfa/Proventil Hfa/Proair Hfa) 90 Mcg Puff 2 PUFF IH Q4HPRN PRN for wheezing for 30 Days, #18 GM 0 Refills Budesonide/Formoterol Fumarate (Budesonide-Formoterol 160-4.5) 160 Mcg-4.5 Mcg/Actuation Hfa.aer.ad 2 PUFF IH BID for 30 Days, #10.2 GM 0 Refills Amlodipine Besylate (Norvasc 5Mg Tab) 5 Mg Tablet 10 MG PO DAILY, #30 TAB Losartan Potassium (Cozaar) 50 Mg Tablet 50 MG PO BID, #60 TAB 0 Refills Montelukast Sodium (Singulair 10Mg) 10 Mg Tab 10 MG PO DAILY, #30 TAB 0 Refills Prednisone (Deltasone/Orasone [Bulk]) 20 Mg Tab 40 MG PO DAILY, #7 TAB Time spent arranging discharge: 31-60 minutes ADELAIDA MALDONADO MD September 12, 2024 19:21
== END 2024-09-12 18:00 | disposition home or self-care (01) | DRG 291 ==
LOC: EDH 07:08 → EDHIP 09:39 → 4CH 17:05
PROVIDERS: ADMIT Internal Medicine; ATTEND Internal Medicine
DX: I11.0 Hypertensive heart disease with heart failure (principal); I50.33 Acute on chronic diastolic (congestive) heart failure; J96.21 Acute and chronic respiratory failure with hypoxia; J44.1 Chronic obstructive pulmonary disease with (acute) exacerbation; R64 Cachexia; Z59.01 Sheltered homelessness; Z20.822 Contact with and (suspected) exposure to COVID-19; I27.20 Pulmonary hypertension, unspecified; J43.9 Emphysema, unspecified; D72.829 Elevated white blood cell count, unspecified; D75.839 Thrombocytosis, unspecified; E87.6 Hypokalemia; R81 Glycosuria; I07.1 Rheumatic tricuspid insufficiency; D64.9 Anemia, unspecified; F17.210 Nicotine dependence, cigarettes, uncomplicated; E11.51 Type 2 diabetes mellitus with diabetic peripheral angiopathy without gangrene; F41.0 Panic disorder [episodic paroxysmal anxiety]; F41.1 Generalized anxiety disorder; I25.10 Atherosclerotic heart disease of native coronary artery without angina pectoris; R54 Age-related physical debility; Z79.899 Other long term (current) drug therapy; Z71.6 Tobacco abuse counseling; Z91.199 Patient's noncompliance with other medical treatment and regimen due to unspecified reason; Z68.23 Body mass index [BMI] 23.0-23.9, adult; Z98.51 Tubal ligation status
CPT/HCPCS: 36415; 36600; 71045; 71250; 80048; 80053; 80076; 81001; 82140; 82435; 82803; 82947; 83605; 83615; 83735; 83880; 84100; 84132; 84145; 84295; 84484; 85018; 85025; 85027; 85651; 86140; 87040; 87071; 87205; 87426; 87804; 93005; 94640; 94664; 99285; G0378; J0692; J1650; J1938; J2470; J2919; J3411; J3475; A4600

== ENCOUNTER 2024-09-19 19:36 | Emergency (ER) | payer OTHER, MEDICARE ==
[~2024-09-19] VITALS: Ht 165.1 cm; Wt 60.8 kg
[~2024-09-19 19:36] MED LIST changes: -ALBU6.7H14 IH; +ALBUHFA IH; +AMLO5TAB4 PO; +BUDE10.26 IH; -CYCL-309 PO; -GUAI5SYR PO; -IBUP-14 PO; -LEVO-70 PO; -LISI40TA9 PO; +LOSA-418 PO; +MONT-46 PO; -PERM59LI8 TP; +PRED20B PO; -PRED20TA3 PO
--- NOTE | 2024-09-19 20:16 | ERN ---
General Chief Complaint: Shortness of Breath Stated Complaint: SHORTNESS OF BREATH Time Seen by MD: 19:43 History of Present Illness Initial Comments Patient is a 69-year-old female coming in with chief complaints of lightheadedness and shortness of breath. She called EMS after over exerting herself. EMS gave her an albuterol treatment and she said it made her feel better. She does have a history of a cough and an upper respiratory tract infection. She wonders if she has CHF. No nausea vomiting or diarrhea. No chest pain. Allergies: Coded Allergies: No Known Drug Allergies (Unverified Allergy, Unknown, 02/17/21) Home Meds Active Scripts Albuterol Sulfate (Ventolin Hfa/Proventil Hfa/Proair Hfa) 90 Mcg Puff, 2 PUFF IH Q4HPRN PRN for wheezing for 30 Days, #18 GM 0 Refills Prov:ADELAIDA MALDONADO MD 09/12/24 Budesonide/Formoterol Fumarate (Budesonide-Formoterol 160-4.5) 160 Mcg-4.5 Mcg/Actuation Hfa.aer.ad, 2 PUFF IH BID for 30 Days, #10.2 GM 0 Refills Prov:ADELAIDA MALDONADO MD 09/12/24 Prednisone (Deltasone/Orasone [Bulk]) 20 Mg Tab, 40 MG PO DAILY, #7 TAB Prov:ADELAIDA MALDONADO MD 09/12/24 Montelukast Sodium (Singulair 10Mg) 10 Mg Tab, 10 MG PO DAILY, #30 TAB 0 Refills Prov:ADELAIDA MALDONADO MD 09/12/24 Losartan Potassium (Cozaar) 50 Mg Tablet, 50 MG PO BID, #60 TAB 0 Refills Prov:ADELAIDA MALDONADO MD 09/12/24 Amlodipine Besylate (Norvasc 5Mg Tab) 5 Mg Tablet, 10 MG PO DAILY, #30 TAB Prov:ADELAIDA MALDONADO MD 09/12/24 Past Medical History Past Medical History: CAD, CHF, COPD, Diabetes-Type II, Hypertension Medical History Other: Tobacco abuse, PVD Past Surgical History: Unknown Surgical History Other: TUBAL LIGATION Family History Family History: Negative Social History Social History: Smokers, ETOH Female( History) History: Not Applicable Constitutional: (-) chills, (-) diaphoresis, (-) fever, (-) malaise, (-) weakness, (-) other documentation EENTM: (-) eye pain, (-) blurred vision, (-) tearing, (-) double vision, (-) ear pain, (-) ear discharge, (-) nose pain, (-) nose congestion, (-) throat pain, (-) Throat swelling, (-) mouth pain, (-) tooth pain, (-) mouth swelling, (-) other documentation Respiratory: (+) cough, (+) short of breath Cardiovascular: (-) chest pain, (-) edema, (-) palpitations, (-) syncope, (-) dyspnea on exertion, (-) other documentation Gastrointestinal/Abdominal: (-) nausea, (-) vomiting, (-) diarrhea, (-) abdominal pain, (-) abdominal distention, (-) constipation, (-) rectal bleeding, (-) dark stool/melena, (-) other documentation Musculoskeletal: (-) Neck pain, (-) back pain, (-) Flank Pain, (-) joint pain, (-) joint swelling, (-) muscle pain, (-) muscle stiffness, (-) gout, (-) other documentation Physical Exam General Appearance: (+) mild distress Orientation: (+) alert Head/Face Trauma: No Eye: bilateral eye normal inspection, bilateral eye PERRL, bilateral eye EOMI Ear, Nose, Throat: (+) hearing grossly normal, (+) normal ENT inspection, (+) moist mucous membraine Neck: (+) normal inspection, (+) supple, (+) full range of motion, (+) no JVD Respiratory: (+) chest non-tender, (+) lungs clear, (+) well ventilated Heart: (+) regular, (+) no gallop Vascular: (+) no edema, (+) normal peripheral pulse Gastrointestinal: (+) soft, (+) non-tender, (+) no organomegaly, (+) bowel sound present Results Laboratory and Microbiology Lab and Micro Result Laboratory Tests Test 09/19/24 20:25 White Blood Count 8.9 K/uL (4.8-10.8) Red Blood Count 4.57 MIL/uL (4.00-5.50) Hemoglobin 9.3 g/dL (12.0-16.0) L Hematocrit 33.1 % (36-48) L Mean Corpuscular Volume 72.4 fL (79-99) L Mean Corpuscular Hemoglobin 20.4 pg (27.0-33.0) L Mean Corpuscular Hemoglobin Concent 28.1 g/dL (32.0-36.0) L Red Cell Distribution Width 23.5 % (11.0-15.5) H Platelet Count 397 K/uL (130-400) Mean Platelet Volume 9.5 fL (7.5-10.5) Immature Granulocyte % (Auto) 0.6 % (0-1) Neutrophils (%) (Auto) 63.4 % (40.0-77.0) Lymphocytes (%) (Auto) 22.0 % (21.0-51.0) Monocytes (%) (Auto) 12.9 % (3.0-13.0) Eosinophils (%) (Auto) 0.8 % (0.0-8.0) Basophils (%) (Auto) 0.3 % (0.0-5.0) Neutrophils # (Auto) 5.7 K/uL (1.8-7.7) Lymphocytes # (Auto) 2.0 K/uL (1.0-4.8) Monocytes # (Auto) 1.2 K/uL (0.1-1.0) H Eosinophils # (Auto) 0.07 K/uL (0.00-0.70) Basophils # (Auto) 0.03 K/uL (0.00-0.20) Absolute Immature Granulocyte (auto 0.05 K/uL (0-1) Nucleated Red Blood Cells 0.0 % (0.0-0.19) Red Blood Cell Morphology See comments Sodium Level 143 mmol/L (136-145) Potassium Level 3.3 mmol/L (3.5-5.1) L Chloride Level 106 mmol/L (101-111) Carbon Dioxide Level 31 mmol/L (21-32) Blood Urea Nitrogen 12 mg/dL (7-18) Creatinine 0.4 mg/dL (0.5-1.0) L Glomerular Filtration Rate Calc 106 mL/min (>90) Random Glucose 96 mg/dL (70-105) Lactic Acid Level 0.8 mmol/L (0.8-2.5) Total Calcium 8.7 mg/dL (8.5-10.1) Total Bilirubin 0.5 mg/dL (0.2-1.0) Aspartate Amino Transf (AST/SGOT) 19 U/L (10-37) Alanine Aminotransferase (ALT/SGPT) 21 U/L (12-78) Alkaline Phosphatase 109 U/L (50-136) Troponin I High Sensitivity 20 ng/L (4-50) B-Type Natriuretic Peptide 139 pg/mL (0-100) H Total Protein 6.3 g/dL (6.0-8.3) Albumin 3.0 g/dL (3.5-5.0) L Procalcitonin < 0.05 ng/mL (0.05-0.5) L Influenza Type A Antigen Negative For Type A Influenza Type B Antigen Negative For Type B SARS-CoV-2 Antigen (Rapid) PRESUMPTIVE NEGATIVE Group A Streptococcus Rapid negative (NEGATIVE) MDM I will start by agreeing with the patient that she is over exerted and possibly dehydrated. I will give her a L of LR. Also for the workup I will check her cardiac enzymes get an EKG get a chest x-ray a BNP, CBC CMP nasal swabs UA. Laboratory results have come back and they are negative. There is a very slight elevation in her BNP but otherwise CBC CMP nasal swabs are all negative. As are her cardiac enzymes and procalcitonin. We performed orthostatic blood pressure medications and they are the exact opposite of what you would expect. Paradoxically this can be an indication of hypovolemia. I will bolused the patient an additional 500 cc of fluid. Patient received an additional 500 cc of fluid. She is now complaining of chest pain. She has had an EKG that is normal troponin that is normal and a BNP that is normal and a chest x-ray that is normal. The patient tells me she is homeless and would like to spend at least tonight in the hospital. The hospitalist full. I can recommend that she stay in the lobby of the hospital morning at which time she can go to a homeless custodial. ED Course Orders Procedure Category Date Status Time Chest 1vw RAD 09/19/24 Resulted 20:16 12 Lead Ekg Tracing- EKG 09/19/24 Logged Technical 20:16 B-Type Natriuretic LAB 09/19/24 Complete Peptide 20:16 Comprehensive LAB 09/19/24 Complete Metabolic Panel 20:16 Covid19 (Sars Antigen LAB 09/19/24 Complete Rapid) 20:16 Influenza Type A & B, LAB 09/19/24 Complete Rapid 20:16 Lactic Acid LAB 09/19/24 Complete 20:16 Procalcitonin LAB 09/19/24 Complete 20:16 Urinalysis Profile LAB 09/19/24 Logged 20:16 Troponin I High LAB 09/19/24 Complete Sensitivity 20:16 Rapid (Group A Strep) LAB 09/19/24 Complete 20:16 Lactated Ringers PHA 09/19/24 Complete 1000ml (Lactated 20:16 Cbc With Differential LAB 09/19/24 Complete 21:55 Orthostatic Vital CPOE 09/19/24 Transmitted Signs 23:07 Lactated Ringers PHA 09/20/24 Complete 1000ml (Lactated 00:28 Current Medications Medications (Trade) Dose Ordered Sig/Jo Route PRN Reason Start Time Stop Time Status Last Admin Dose Admin Lactated Ringer's (Lactated Ringers 1000ml) 500 ml BOLUS STAT IV 09/20/24 00:28 09/20/24 00:31 DC 09/20/24 00:44 Lactated Ringer's (Lactated Ringers 1000ml) 1,000 ml BOLUS STAT IV 09/19/24 20:16 09/19/24 20:19 DC 09/19/24 20:28 Vital Signs Date Time Temp Pulse Resp B/P (MAP) Pulse Ox O2 Delivery O2 Flow Rate FiO2 09/19/24 23:18 152/66 Nasal Cannula* 1 09/19/24 23:18 168/69 Nasal Cannula* 1 09/19/24 23:17 99.5 85 18 135/62 92 Nasal Cannula* 1.0 N/A 09/19/24 22:35 99.5 85 18 120/55 93 Nasal Cannula* 1 09/19/24 20:30 99.7 88 18 121/65 97 Room Air* 0 09/19/24 19:42 98.1 84 16 120/66 92 Nasal Cannula 1.0 DX & DISP Disposition: Discharge Departure Impression: Primary Impression: Dehydration fever Condition: Stable Referrals: SELF,REFERRAL (PCP) MARIA E BENJAMIN MD September 19, 2024 20:16
[2024-09-19] MEDS: LACTATED RINGERS 1000ML IV STA (20:28)
[2024-09-19 20:42] LABS: RAPID GROUP A STREP negative (NEGATIVE)
[2024-09-19 20:51] LABS: COVID19 (SARS ANTIGEN RAPID) PRESUMPTIVE NEGATIVE (NEGATIVE)
[2024-09-19 20:52] LABS: INFLUENZA TYPE A Negative For Type A (NEGATIVE); INFLUENZA TYPE B Negative For Type B (NEGATIVE)
[2024-09-19 20:53] LABS: BILIRUBIN,TOTAL 0.5 mg/dL (0.2-1.0); CREATININE 0.4 mg/dL (0.5-1.0); POTASSIUM 3.3 mmol/L (3.5-5.1); TOTAL PROTEIN, SERUM 6.3 g/dL (6.0-8.3)
--- NOTE | 2024-09-19 21:30 | HMCIMG ---
PORTABLE CHEST RADIOGRAPH INDICATION: sob COMPARISON: 09/10/2024 CT chest FINDINGS: Patient positioning is not optimal, but the radiologic examination is still believed to be of reasonable diagnostic quality. Heart size is normal. The pulmonary vascularity and zhou appear normal. No abnormal pulmonary parenchymal opacity or consolidation identified. No significant pleural effusion noted. No pneumothorax detected. IMPRESSION: No radiographic evidence for any acute cardiopulmonary process.
[2024-09-19 22:06] LABS: BASOPHILS # (AUTO) 0.03 K/uL (0.00-0.20); BASOPHILS % (AUTO) 0.3 % (0.0-5.0); EOSINOPHILS # (AUTO) 0.07 K/uL (0.00-0.70); EOSINOPHILS % (AUTO) 0.8 % (0.0-8.0); HEMATOCRIT 33.1 % (36-48); IMMATURE GRANULOCYTE ABSOLUTE 0.05 K/uL (0-1); MEAN CORPUSCULAR HEMOGLOBIN 20.4 pg (27.0-33.0); MEAN CORPUSCULAR HGB CONC 28.1 g/dL (32.0-36.0); MEAN CORPUSCULAR VOLUME 72.4 fL (79-99); MONOCYTES # (AUTO) 1.2 K/uL (0.1-1.0); MONOCYTES % (AUTO) 12.9 % (3.0-13.0); NEUTROPHILS # (AUTO) 5.7 K/uL (1.8-7.7); NEUTROPHILS % (AUTO) 63.4 % (40.0-77.0); PLATELET COUNT (AUTO) 397 K/uL (130-400); RED BLOOD CELL COUNT(AUTO) 4.57 MIL/uL (4.00-5.50); RED CELL DISTRIBUTION WIDTH 23.5 % (11.0-15.5); WHITE BLOOD COUNT (AUTO) 8.9 K/uL (4.8-10.8)
--- NOTE | 2024-09-19 23:19 | NUR ---
ORTHO VS DONE- SEE VS CHART , NO SIGNIFICANT DROP NOTED
[2024-09-20] MEDS: LACTATED RINGERS 1000ML IV STA (00:44)
[2024-09-20 03:02] VITALS: BP 145/65; PULSE 88; RESP 18; TEMP 99.5; O2SAT 94
--- NOTE | 2024-09-20 06:47 | EKG ---
[facility] Test Date: 2024-09-19 Test Time: 20:35:20 Pat Name: JONATHON BOURNE Department: ED Room: Gender: F Buncher Hand: [id number] : 1955 Requested By: MARIA E BENJAMIN Order Number: [id number] Reading MD: Isabella Brito Measurements Intervals [place] Rate: 86 P: 75 HI: 157 QRS: 51 QRSD: 100 T: 64 QT: 375 QTc: 449 Interpretive Statements Sinus rhythm Compared to ECG 09/07/2024 07:23:44 Atrial premature complex(es) no longer present Atrial abnormality no longer present Electronically Signed On 09-20-2024 14:47:26 CDT by Isabella Brito Please click the below link to view image of tracing.
== END 2024-09-20 03:10 | disposition home or self-care (01) ==
LOC: EDH 19:36
DX: E86.0 Dehydration (principal); I11.0 Hypertensive heart disease with heart failure; I50.9 Heart failure, unspecified; I25.10 Atherosclerotic heart disease of native coronary artery without angina pectoris; E11.9 Type 2 diabetes mellitus without complications; F17.200 Nicotine dependence, unspecified, uncomplicated; J44.9 Chronic obstructive pulmonary disease, unspecified; Z20.822 Contact with and (suspected) exposure to COVID-19; Z79.52 Long term (current) use of systemic steroids; Z79.899 Other long term (current) drug therapy; Z98.51 Tubal ligation status
CPT/HCPCS: 36415; 71045; 80053; 83605; 83880; 84145; 84484; 85025; 87426; 87804; 87880; 93005; 99285